=== PATIENT | female | born 1990 | race Hispanic/Latino ===

== ENCOUNTER → 2018-04-01 15:06 | Outpatient (CLI) | payer OTHER, MEDICAID, SELFPAY ==
[2018-04-01 15:46] LABS: Add Manual Diff / Slide Review NO; Basophils Percent Auto 0.6 % (0-2); Eosinophils Percent Auto 3.2 % (2-4); Hematocrit 38.5 % (36-46); Hemoglobin 13.2 g/dL (12.0-16.0); Lymphocytes Percent Auto 33.5 % (25-40); Mean Corpuscular HGB Conc 34.3 % (30-36); Mean Corpuscular Hemoglobin 29.9 PG (26-34); Mean Corpuscular Volume 87.1 fL (80-100); Monocytes Percent Auto 6.8 % (3-14); Neutrophils Absolute Auto 4300 /uL (3000-5900); Neutrophils Percent Auto 55.9 % (50-75); Platelet Count 329 X10^3/uL (150-400); Red Blood Cell Count 4.42 X10^6/uL (4.0-5.2); Red Cell Distribution Width 13.6 % (11.6-14.8); White Blood Cell Count 7.8 X10^3/uL (4.5-11.0)
[2018-04-01 16:33] LABS: Erythrocyte Sedimentation Rate 12 MM/HR (0-20)
[2018-04-01 16:38] LABS: Alanine Aminotransferase 27 IU/L (9-52); Albumin 4.3 g/dL (3.5-5.0); Albumin Globulin Ratio 1.5 (1.0-2.8); Alkaline Phosphatase 32 U/L (38-126); Aspartate Aminotransferase 24 IU/L (14-36); BUN Creatinine Ratio 17.1 (6-22); Bilirubin Total 0.9 mg/dL (0.2-1.3); Blood Urea Nitrogen 12 mg/dL (7-17); Carbon Dioxide 25 mmol/L (22-32); Chloride 107 mmol/L (98-107); Estimated Glomerular Filt Rate > 60.0 mL/min (>60); Globulin 2.8 g/dL (1.7-4.1); Glucose 90 mg/dL (70-100); Potassium 4.7 mmol/L (3.4-5.1); Sodium 142 mmol/L (137-145); Total Protein 7.1 g/dL (6.3-8.2)
[2018-04-01 16:40] LABS: HEMOLYSIS 62 (0-50)
== END ==
PROVIDERS: PCP Internal Medicine; Visit Provider Internal Medicine
DX: G50.0 Trigeminal neuralgia (principal)
CPT/HCPCS: 36415; 80053; 85025; 85651

== ENCOUNTER → 2019-12-25 16:00 | Outpatient (CLI) | payer OTHER, MEDICAID, SELFPAY ==
[2019-12-25 18:13] LABS: Glucose 80 mg/dL (70-100)
[2019-12-25 18:27] LABS: HCG Quantitative /Beta subunit < 2.4 mIU/mL
== END ==
PROVIDERS: PCP Family Medicine; Referring Provider Family Medicine; Visit Provider Family Medicine
DX: Z32.01 Encounter for pregnancy test, result positive (principal); E16.2 Hypoglycemia, unspecified
CPT/HCPCS: 36415; 82947; 84702

== ENCOUNTER → 2020-04-28 13:00 | Outpatient (CLI) | payer OTHER, MEDICAID, SELFPAY ==
[2020-04-28 13:14] LABS: RBC Urine None Seen (0-5/HPF); WBC Urine None Seen (0-5/HPF)
[2020-04-28 14:01] LABS: Hemoglobin A1C% w Est Avg Glu 5.3 % (4.0-6.0)
[2020-04-28 14:01] LABS: Add Manual Diff / Slide Review NO; Basophils Absolute Auto 0 /uL (0-100); Basophils Percent Auto 0.4 % (0-2); Eosinophils Absolute Auto 100 /uL (0-450); Eosinophils Percent Auto 0.9 % (2-4); Hematocrit 40.2 % (36-46); Hemoglobin 13.5 g/dL (12.0-16.0); Lymphocytes Absolute Auto 2500 /uL (1100-4500); Lymphocytes Percent Auto 24.4 % (25-40); Mean Corpuscular HGB Conc 33.6 % (30-36); Mean Corpuscular Hemoglobin 29.9 PG (26-34); Mean Corpuscular Volume 88.9 fL (80-100); Monocytes Absolute Auto 500 /uL (0-900); Monocytes Percent Auto 4.7 % (3-14); Neutrophils Absolute Auto 7000 /uL (1500-7000); Neutrophils Percent Auto 69.6 % (50-75); Platelet Count 335 X10^3/uL (150-400); Red Blood Cell Count 4.52 X10^6/uL (4.0-5.2); Red Cell Distribution Width 13.8 % (11.6-14.8); White Blood Cell Count 10.1 X10^3/uL (4.5-11.0)
[2020-04-28 14:11] LABS: Glucose 83 mg/dL (70-100)
[2020-04-28 14:17] LABS: Appearance Urine UA SL CLOUDY; Bilirubin Urine UA NEGATIVE (NEGATIVE); Color Urine UA YELLOW; Glucose Urine UA NEGATIVE (Negative); Ketones Urine UA NEGATIVE (NEGATIVE); Leukocyte Esterase Urine UA NEGATIVE (NEGATIVE); Nitrite Urine UA NEGATIVE (Negative); Occult Blood Urine UA NEGATIVE (Negative); Protein Urine UA NEGATIVE (Negative); Specific Gravity Urine UA 1.025 (1.000-1.035); Urobilinogen Urine UA 0.2 E.U./dL (0.2)
[2020-04-28 14:31] LABS: pH Urine UA 5.5 (4.5-8.0)
[2020-04-28 14:33] LABS: Bacteria Urine Many (>30); Culture Indicated Urine Cult Not Indicated; Squamous Epithelial Cell Urine 10-30 /HPF (0-5/HPF)
[2020-04-28 14:53] LABS: HCG Quantitative /Beta subunit 83883 mIU/mL
[2020-04-29 04:13] LABS: RPR Screen Non Reactive (Non Reactive)
[2020-04-29 07:13] LABS: C Peptide 6.3 ng/mL (1.1-4.4)
[2020-04-29 08:09] LABS: Varicella IgG Antibody 570 index (Immune >165)
[2020-04-29 16:26] LABS: Hepatitis B Surface Antigen NEGATIVE s/c (NEGATIVE); Rubella Antibody IgG 56.7 IU/mL (>15)
[2020-04-29 16:48] LABS: HIV 1 & 2 Ab/Ag 4th Gen Combo NEGATIVE (NEGATIVE); Hep C Virus Ab w/Reflex Quant NEGATIVE s/c (NEGATIVE)
[2020-05-03 00:52] LABS: Beta-Hydroxybutyrate 0.6 mg/dL (.)
== END ==
PROVIDERS: PCP Family Medicine; Referring Provider Obstetrics & Gynecology; Visit Provider Obstetrics & Gynecology
DX: R30.0 Dysuria (principal); Z34.81 Encounter for supervision of other normal pregnancy, first trimester; N91.2 Amenorrhea, unspecified; E16.2 Hypoglycemia, unspecified
CPT/HCPCS: 36415; 80055; 81001; 82010; 82947; 83036; 84206; 84681; 84702; 86787; 86803; 86850; 86900; 86901; 87086; 87389

== ENCOUNTER → 2020-05-21 16:29 | Outpatient (CLI) | payer OTHER, MEDICAID, SELFPAY | PROVIDERS: PCP Family Medicine; Referring Provider Obstetrics & Gynecology; Visit Provider Obstetrics & Gynecology | DX: Z34.91 Encounter for supervision of normal pregnancy, unspecified, first trimester (principal); Z36.0 Encounter for antenatal screening for chromosomal anomalies | CPT/HCPCS: 36415; 81420 ==

== ENCOUNTER → 2020-06-02 15:08 | Outpatient (CLI) | payer OTHER, MEDICAID, SELFPAY ==
[2020-06-05 18:11] LABS: COVID19 Sendout Not Detected (Not Detect)
== END ==
PROVIDERS: PCP Family Medicine; Visit Provider Family Medicine
DX: J02.9 Acute pharyngitis, unspecified (principal); Z11.59 Encounter for screening for other viral diseases
CPT/HCPCS: 87070; 87635

== ENCOUNTER 2020-06-02 15:51 | Emergency (ER) | payer OTHER, MEDICAID, SELFPAY ==
[2020-06-02 15:56] VITALS: BP 136/84; PULSE 105; RESP 24; TEMP 36.9; O2SAT 100
[2020-06-02] MEDS: SODIUM CHLORIDE 0.9% 1,000 ML 1000 ML IV (16:23)
[2020-06-02] MEDS: ONDANSETRON 4 MG/2 ML INJ IV (16:23)
[2020-06-02 16:30] LABS: Add Manual Diff / Slide Review NO; Basophils Absolute Auto 0 /uL (0-100); Basophils Percent Auto 0.4 % (0-2); Eosinophils Absolute Auto 300 /uL (0-450); Eosinophils Percent Auto 2.6 % (2-4); Hematocrit 40.2 % (36-46); Hemoglobin 12.9 g/dL (12.0-16.0); Lymphocytes Absolute Auto 1600 /uL (1100-4500); Lymphocytes Percent Auto 14.3 % (25-40); Mean Corpuscular HGB Conc 32.1 % (30-36); Mean Corpuscular Hemoglobin 28.8 PG (26-34); Mean Corpuscular Volume 89.7 fL (80-100); Monocytes Absolute Auto 500 /uL (0-900); Monocytes Percent Auto 4.8 % (3-14); Neutrophils Absolute Auto 8600 /uL (1500-7000); Neutrophils Percent Auto 77.9 % (50-75); Platelet Count 304 X10^3/uL (150-400); Red Blood Cell Count 4.48 X10^6/uL (4.0-5.2); Red Cell Distribution Width 13.8 % (11.6-14.8)
[2020-06-02 16:31] LABS: Alanine Aminotransferase 23 IU/L (<35); Albumin 4.6 g/dL (3.5-5.0); Albumin Globulin Ratio 1.2 (1.0-2.8); Alkaline Phosphatase 26 U/L (38-126); Aspartate Aminotransferase 33 IU/L (14-36); BUN Creatinine Ratio 11.7 (6-22); Bilirubin Total 0.7 mg/dL (0.2-1.3); Blood Urea Nitrogen 7 mg/dL (7-17); Calcium 8.9 mg/dL (8.4-10.2); Carbon Dioxide 24 mmol/L (22-32); Chloride 102 mmol/L (98-107); Estimated Glomerular Filt Rate > 60.0 mL/min (>60); Globulin 3.8 g/dL (1.7-4.1); Glucose 83 mg/dL (70-100); Potassium 4.4 mmol/L (3.4-5.1); Sodium 135 mmol/L (137-145); Total Protein 8.4 g/dL (6.3-8.2)
[2020-06-02 16:34] LABS: HEMOLYSIS 91 (0-50)
[2020-06-02] MEDS: ALBUTEROL HFA 200 PUFF/18 GM INH (COVID POS/VENT PTS) INH (16:35)
--- NOTE | 2020-06-02 16:38 | ED_ITS ---
HPI - Nausea/Vomiting/Diarrhea <Zonia ChewMARY - Last Filed: 06/02/20 20:13> General Chief complaint: Nausea/Vomiting/Diarrhea Stated complaint: sent for fluids and O2 Time Seen by Provider: 06/02/20 16:00 Source: patient Mode of arrival: Ambulatory History of Present Illness HPI Narrative: 29yo female , who is currently 13 weeks , sent to the emergency department today from the clinic for IV fluids and Zofran due to vomiting tachycardia. She originally presented to her PCP for evaluation of sinus congestion and shortness of breath. Patient states over week ago she developed increasing allergy symptoms with rhinitis and sinus pressure, symptoms have worsened over the past few days. She reports increasing sinus pressure, headaches, dry cough, and shortness of breath. She states she has a history of asthma and intermittently uses an albuterol inhaler, she has not use the inhaler since she has been ill. She states she has had some vomiting and nausea with this however over the past 1-2 days she has not been able to keep any foods or fluids down despite p.o. Zofran. Patient states she has spent time with a cousin who tested positive for COVID-19 on 05/26. Patient denies any abdominal pain, cramping, vaginal bleeding, dizziness, chest pain, sore throat, vision changes, or any other concerns. She states heart tones were found to be normal in clinic today, denies any history of issues with her current or with pregnancies in the past. Related Data Home Medications Medication Instructions Recorded Confirmed acetaminophen 500 mg tablet 1,000 mg PO Q6H PRN 04/28/20 05/06/20 prenat.vits,brigette,[id number]-[id number] 1 tab PO DAILY 04/28/20 05/06/20 Previous Rx's Medication Instructions Recorded blood-glucose meter #1 each 01/07/20 blood sugar diagnostic #100 each 01/09/20 lancets 30 gauge #100 each 01/09/20 omeprazole 20 mg capsule,delayed 20 mg PO DAILY #30 cap 05/06/20 release ondansetron HCl 4 mg tablet 4 mg PO Q6H PRN #20 tab 05/06/20 amoxicillin 875 mg-potassium 1 tab PO BID #10 tab 06/02/20 clavulanate 125 mg tablet metoclopramide HCl [Reglan] 10 mg PO Q6H PRN #10 tab 06/02/20 Allergies Allergy/AdvReac Type Severity Reaction Status Date / Time No Known Drug Allergies Allergy Unknown Verified 05/06/20 15:41 Review of Systems <MARY Warren - Last Filed: 06/02/20 20:13> Review of Systems Narrative: REVIEW OF SYSTEMS: GENERAL: Reports fevers, see HPI. HENT: No head trauma. Reports rhinorrhea and sinus congestion. EYES: No loss of vision, double vision, eye pain, or irritation. CARDIOVASCULAR: No chest pain. RESPIRATORY: Reports shortness of breath, see HPI. GASTROINTESTINAL: Complains of nausea and vomiting, HPI. GENITOURINARY: No flank pain. Reports early , see HPI. MUSCULOSKELETAL: No pain, weakness, or trauma. INTEGUMENTARY: No rash, lesions, or pruritus. NEURO: No numbness or tingling. PSYCH: No behavior or mood changes. Patient History <MARY Warren - Last Filed: 06/02/20 20:13> Medical History Anemia (Acute ~2016) Anxiety (Resolved 03/21/16) Anxiety (Chronic) Biliary colic (Acute) Cholelithiasis (Acute) Chronic headaches (Acute) Dysthymia (Resolved 03/21/16) Exposure to hepatitis B (Acute ~2015) Occipital neuralgia (Chronic) Osteomyelitis (Acute ~1999) Rh negative state in antepartum period (Acute) Surgical History H/O section complicating (Acute) H/O wisdom tooth extraction (Acute ~2012) History of primary section (Acute ~11/15/12) Status post delivery (Resolved 12/21/16) Status post cholecystectomy (Resolved 2016) Status post incision and drainage (Acute ~1999) Family History Mother Diabetes mellitus Father Myocardial infarction Sister Hypoglycemic disorder Grandmother Twins, both liveborn Grandfather Unknown whether patient has any health problems Grandmother Unknown whether patient has any health problems Grandfather Unknown whether patient has any health problems Sister Depression Anxiety Social History marital status: number of children: 2 household members: spouse and family lives independently: Yes caregiver/support person: No housing: house pets and animals: Yes (X dog) education level: college (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 re-do to work 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[place]) occupational status: unemployed (Homemaker ) current occupational exposures/hazards: No yamel/nondenominational: Pentecostalism special yamel needs: No Smoking Status: Never smoker second hand exposure: No alcohol intake: former (pre- : once in a while) substance use type: does not use Smoking Status: Never smoker Exam <MARY Warren - Last Filed: 06/02/20 20:13> Initial Vital Signs Initial Vital Signs: Vital Signs Temperature 98.4 F 06/02/20 15:56 Pulse Rate 105 H 06/02/20 15:56 Respiratory Rate 24 06/02/20 15:56 Blood Pressure 136/84 06/02/20 15:56 Pulse Oximetry 100 06/02/20 15:56 PHYSICAL EXAMINATION: GENERAL: Well groomed, alert, and cooperative. Answers questions promptly and appropriately. Vital signs noted. HENT: Normocephalic, atraumatic. Ear canals patent. Oropharynx without erythema. EYES: Conjunctiva pink, sclera white, no periorbital swelling. No discharge. CHEST: Normal to inspection and without deformities. CARDIOVASCULAR: S1 and S2 sounds normal. Regular rate and rhythm, no murmurs, clicks, or bruits. RESPIRATORY: Normal respiratory rate, trachea midline, airway patent. No stridor, nasal flaring or accessory muscle use. Able to speak in full sentences. Lungs are clear in all [place] without wheeze, rhonchi, or crackles. Occasional dry cough observed, see HPI. Abdomen: Abdomen soft and nontender. MUSCULOSKELETAL: Normal gait and coordination. Equal tone and mass bilaterally. EXTREMITIES: Moves all extremities. SKIN: Warm, dry, soft, appropriate color for ethnicity. No lesions, rashes, or wounds to visualized areas. NEURO: Alert and Oriented X 3. Good coordination. No ataxia or cognitive issues. PSYCH: Appropriate affect and mood. <Quentin Portillo DO - Last Filed: 06/11/20 03:26> Initial Vital Signs Initial Vital Signs: Vital Signs Temperature 98.4 F 06/02/20 15:56 Pulse Rate 105 H 06/02/20 15:56 Respiratory Rate 24 06/02/20 15:56 Blood Pressure 136/84 06/02/20 15:56 Pulse Oximetry 100 06/02/20 15:56 Course <Zonia ChewMARY - Last Filed: 06/02/20 20:13> Course Course Narrative: Patient was given Zofran and fluids, reports continued nausea. She was given an albuterol inhaler and reglan IV, most medication administration patient reports she is feeling much better. All symptoms including shortness of breath have resolved. She was able to eat and drink without any worsening symptoms. Orders Ordered: Discontinued Medications Albuterol (Ventolin Hfa (Vent/Covid R/O)) 2 puff INH NOW ONE Stop: 06/02/20 16:12 Last Admin: 06/02/20 16:35 Dose: 2 puff Documented by: HETAL Sodium Chloride (Normal Saline 0.9%) 1,000 mls @ 1,000 mls/hr IV BOLUS ONE Stop: 06/02/20 17:10 Last Infusion: 06/02/20 17:43 Dose: 0 mls/hr Documented by: Admin: 06/02/20 16:23 Dose: 1,000 mls/hr Documented by: JUANY Metoclopramide HCl (Reglan) 10 mg IV NOW ONE Stop: 06/02/20 17:33 Last Admin: 06/02/20 17:45 Dose: 10 mg Documented by: JUANY Ondansetron HCl (Zofran) 4 mg IV NOW ONE Stop: 06/02/20 16:14 Last Admin: 06/02/20 16:23 Dose: 4 mg Documented by: JUANY Vital Signs Vital signs: Vital Signs - 8 hr 06/02/20 15:56 06/02/20 16:42 06/02/20 17:05 Temperature 98.4 F Pulse Rate 105 H 94 H Respiratory Rate 24 18 18 Blood Pressure 136/84 108/59 L Pulse Oximetry 100 99 100 06/02/20 18:23 Temperature Pulse Rate 96 H Respiratory Rate 18 Blood Pressure 111/64 Pulse Oximetry 99 <Quentin Portillo DO - Last Filed: 06/11/20 03:26> Orders Ordered: Discontinued Medications Albuterol (Ventolin Hfa (Vent/Covid R/O)) 2 puff INH NOW ONE Stop: 06/02/20 16:12 Last Admin: 06/02/20 16:35 Dose: 2 puff Documented by: HETAL Sodium Chloride (Normal Saline 0.9%) 1,000 mls @ 1,000 mls/hr IV BOLUS ONE Stop: 06/02/20 17:10 Last Infusion: 06/02/20 17:43 Dose: 0 mls/hr Documented by: Admin: 06/02/20 16:23 Dose: 1,000 mls/hr Documented by: JUANY Metoclopramide HCl (Reglan) 10 mg IV NOW ONE Stop: 06/02/20 17:33 Last Admin: 06/02/20 17:45 Dose: 10 mg Documented by: JUANY Ondansetron HCl (Zofran) 4 mg IV NOW ONE Stop: 06/02/20 16:14 Last Admin: 06/02/20 16:23 Dose: 4 mg Documented by: JUANY Vital Signs Vital signs: Vital Signs - 8 hr 06/02/20 15:56 06/02/20 16:42 06/02/20 17:05 Temperature 98.4 F Pulse Rate 105 H 94 H Respiratory Rate 24 18 18 Blood Pressure 136/84 108/59 L Pulse Oximetry 100 99 100 06/02/20 18:23 Temperature Pulse Rate 96 H Respiratory Rate 18 Blood Pressure 111/64 Pulse Oximetry 99 MDM - Nausea/Vomiting/Diarrhea <MARY Warren - Last Filed: 06/02/20 20:13> Medical Records Attestation: I reviewed the patient's medical records. Lab Data Attestation: I reviewed the patient's lab results. Result diagrams: 06/02/20 16:08 06/02/20 16:08 Labs: Lab Results 06/02/20 06/02/20 Range/Units 16:08 16:08 WBC 11.0 (4.5-11.0) X10^3/uL RBC 4.48 (4.0-5.2) X10^6/uL Hgb 12.9 (12.0-16.0) g/dL Hct 40.2 (36-46) % MCV 89.7 (80-100) fL MCH 28.8 (26-34) PG MCHC 32.1 (30-36) % RDW 13.8 (11.6-14.8) % Plt Count 304 (150-400) X10^3/uL Neut % (Auto) 77.9 H (50-75) % Lymph % (Auto) 14.3 L (25-40) % [place] % (Auto) 4.8 (3-14) % Eos % (Auto) 2.6 (2-4) % Baso % (Auto) 0.4 (0-2) % Neut # (Auto) 8600 H (0354-7326) /uL Lymph # (Auto) 1600 (0526-3389) /uL [place] # (Auto) 500 (0-900) /uL Eos # (Auto) 300 (0-450) /uL Baso # (Auto) 0 (0-100) /uL Sodium 135 L (137-145) mmol/L Potassium 4.4 (3.4-5.1) mmol/L Chloride 102 (98-107) mmol/L Carbon Dioxide 24 (22-32) mmol/L BUN 7 (7-17) mg/dL Creatinine 0.60 (0.52-1.04) mg/dL Estimated GFR > 60.0 (>60) mL/min BUN/Creatinine Ratio 11.7 (6-22) Glucose 83 (70-100) mg/dL Calcium 8.9 (8.4-10.2) mg/dL Total Bilirubin 0.7 (0.2-1.3) mg/dL AST 33 (14-36) IU/L ALT 23 (<35) IU/L Alkaline Phosphatase 26 L (38-126) U/L Total Protein 8.4 H (6.3-8.2) g/dL Albumin 4.6 (3.5-5.0) g/dL Globulin 3.8 (1.7-4.1) g/dL Albumin/Globulin Ratio 1.2 (1.0-2.8) Urine Dip Bedside Urine Glucose Negative Bedside Urine Bilirubin - Negative Bedside Urine Ketone - Negative Urine Specific [place] 1.025 Bedside Urine Occult Blood - Negative Bedside Urine pH 6.0 Bedside Urine Protein - Negative Bedside Urine Urobilinogen - Negative Bedside Urine Nitrite - Negative Bedside Urine Leukocytes - Negative Esterase MDM Narrative Medical decision making narrative: 29-year-old female who is currently 13 weeks , presents emergency department for continuous nausea vomiting with the past few days with shortness of breath. She was recently seen in the clinic today, ultrasound shows heart beat within normal limits in clinic. I suspect patient's cough and shortness of breath is most likely related to her sinus infection that she was recently diagnosed with. COVID-19 remains on the differential as well. Additionally, her history of asthma may be contributing to her feelings of shortness of breath. Symptoms were resolved after albuterol inhaler and Reglan. I suspect nausea and vomiting is most likely related to and current respiratory illness. Patient was able to consume food in fluids post fluids and rhythm administration. Less concern for PE due to resolution of symptoms, lack of high risk factors (other than current ), patient is not tachycardic and non tachypneic, oxygen saturation within normal limits. Less concern for acute infection such as pneumonia given clear lung examination, patient is afebrile at this time. Patient's initial slight tachycardia resolved after fluid administration She was encouraged to continue antibiotics as prescribed, she was encouraged to quarantine until COVID results are returns. Return precautions given for new or worsening symptoms. Patient agreed to plan of care verbalized understanding. <Quentin Portillo, DO - Last Filed: 06/11/20 03:26> Lab Data Labs: Lab Results 06/02/20 06/02/20 Range/Units 16:08 16:08 WBC 11.0 (4.5-11.0) X10^3/uL RBC 4.48 (4.0-5.2) X10^6/uL Hgb 12.9 (12.0-16.0) g/dL Hct 40.2 (36-46) % MCV 89.7 (80-100) fL MCH 28.8 (26-34) PG MCHC 32.1 (30-36) % RDW 13.8 (11.6-14.8) % Plt Count 304 (150-400) X10^3/uL Neut % (Auto) 77.9 H (50-75) % Lymph % (Auto) 14.3 L (25-40) % [place] % (Auto) 4.8 (3-14) % Eos % (Auto) 2.6 (2-4) % Baso % (Auto) 0.4 (0-2) % Neut # (Auto) 8600 H (5736-4366) /uL Lymph # (Auto) 1600 (9949-1597) /uL [place] # (Auto) 500 (0-900) /uL Eos # (Auto) 300 (0-450) /uL Baso # (Auto) 0 (0-100) /uL Sodium 135 L (137-145) mmol/L Potassium 4.4 (3.4-5.1) mmol/L Chloride 102 (98-107) mmol/L Carbon Dioxide 24 (22-32) mmol/L BUN 7 (7-17) mg/dL Creatinine 0.60 (0.52-1.04) mg/dL Estimated GFR > 60.0 (>60) mL/min BUN/Creatinine Ratio 11.7 (6-22) Glucose 83 (70-100) mg/dL Calcium 8.9 (8.4-10.2) mg/dL Total Bilirubin 0.7 (0.2-1.3) mg/dL AST 33 (14-36) IU/L ALT 23 (<35) IU/L Alkaline Phosphatase 26 L (38-126) U/L Total Protein 8.4 H (6.3-8.2) g/dL Albumin 4.6 (3.5-5.0) g/dL Globulin 3.8 (1.7-4.1) g/dL Albumin/Globulin Ratio 1.2 (1.0-2.8) Urine Dip Bedside Urine Glucose Negative Bedside Urine Bilirubin - Negative Bedside Urine Ketone - Negative Urine Specific [place] 1.025 Bedside Urine Occult Blood - Negative Bedside Urine pH 6.0 Bedside Urine Protein - Negative Bedside Urine Urobilinogen - Negative Bedside Urine Nitrite - Negative Bedside Urine Leukocytes - Negative Esterase Discharge Plan Departure Patient Disposition: Home Clinical Impression: Nausea & vomiting Qualifiers: Vomiting type: unspecified Vomiting Intractability: non-intractable Qualified Code(s): R11.2 - Nausea with vomiting, unspecified Discharge Date/Time: 06/02/20 18:44 Instructions: DI for Nausea -- Adult, DI for Vomiting -- Adult Activity Restrictions/Additional Instructions: Your laboratory work is unremarkable. Please take your antibiotics that were prescribed by Dr. Sandoval. I have given you a prescription for anti-nausea medication, use this if needed. It was sent to [facility] in [place]. Drink plenty of fluids and follow-up with PCP. Return to the ED for new or worsening symptoms. Prescriptions: New metoclopramide HCl [Reglan] 10 mg tablet 10 mg PO Q6H PRN (Reason: nausea and vomiting) Qty: 10 RF: 0 No Action (DME) blood-glucose meter [Blood Glucose Monitoring] Kit See Rx Instructions .ROUTE .MEDSUPPLY Qty: 1 RF: 0 amoxicillin-pot clavulanate [Augmentin] 875-125 mg tablet 1 tab PO BID Qty: 10 RF: 0 (DME) blood sugar diagnostic [Blood Glucose Test] Strip See Rx Instructions .ROUTE .MEDSUPPLY Qty: 100 RF: 0 (DME) lancets [Twist Lancets] 30 gauge misc See Rx Instructions .ROUTE .MEDSUPPLY Qty: 100 RF: 0 ondansetron HCl [Zofran] 4 mg tablet 4 mg PO Q6H PRN (Reason: nausea and vomiting) Qty: 20 RF: 2 omeprazole 20 mg capsule,delayed release(DR/EC) 20 mg PO DAILY Qty: 30 RF: 3 prenat.vits,brigette,oax-mczt-[id number] Tablet 1 tab PO DAILY RF: 0 acetaminophen [Tylenol Extra Strength] 500 mg tablet 1,000 mg PO Q6H PRNRF: 0 Referrals: Noy Sandoval MD [Primary Care Provider] - <Quentin Portillo DO - Last Filed: 06/11/20 03:26> Cosign ED Attending Cosignature Attestation: I was immediately available in the department for consultation. This documentation has been reviewed and I agree with assessment and plan. Supervised by Quentin Portillo DO
[2020-06-02 16:42] VITALS: RESP 18; O2SAT 99
[2020-06-02 17:05] VITALS: BP 108/59; PULSE 94; RESP 18; O2SAT 100
[2020-06-02] MEDS: METOCLOPRAMIDE 10 MG/2 ML INJ IV (17:45)
[2020-06-02 18:23] VITALS: BP 111/64; PULSE 96; RESP 18; O2SAT 99
== END 2020-06-02 18:44 | disposition home or self-care (01) ==
PROVIDERS: Emergency Provider Nurse Practitioner; PCP Family Medicine; Referring Provider Family Medicine
DX: Z03.818 Encounter for observation for suspected exposure to other biological agents ruled out (principal); R06.02 Shortness of breath; R11.2 Nausea with vomiting, unspecified; R51.9 Headache, unspecified; J02.9 Acute pharyngitis, unspecified; Z11.59 Encounter for screening for other viral diseases; Z3A.13 13 weeks gestation of pregnancy
CPT/HCPCS: 36415; 80053; 81003; 85025; 87070; 87635; 94640; 96361; 96374; 96375; 99284; A9270; J2405; J2765

== ENCOUNTER → 2020-06-04 14:00 | Outpatient (CLI) | payer OTHER, MEDICAID, SELFPAY ==
[2020-06-04 14:57] LABS: COVID19 -Nasal RAPID Negative (Negative)
== END ==
PROVIDERS: PCP Family Medicine; Visit Provider Physician Assistant
DX: Z11.59 Encounter for screening for other viral diseases (principal)
CPT/HCPCS: 87635

== ENCOUNTER → 2020-06-15 14:35 | Outpatient (CLI) | payer OTHER, MEDICAID, SELFPAY ==
[2020-06-15 21:09] LABS: Urine N gonorrhoeae NOT DETECTED
[2020-06-15 21:29] LABS: Urine Chlamydia NOT DETECTED
== END ==
PROVIDERS: PCP Family Medicine; Visit Provider Obstetrics & Gynecology
DX: Z34.82 Encounter for supervision of other normal pregnancy, second trimester (principal); Z3A.14 14 weeks gestation of pregnancy
CPT/HCPCS: 87491; 87591

== ENCOUNTER → 2020-07-13 15:00 | Outpatient (CLI) | payer OTHER, MEDICAID, SELFPAY ==
[2020-07-15 21:24] LABS: AFP Value 51.6 ng/mL (.); Gest Age on Col Date 18.9 weeks (.); Insulin Dep Diabetes No (.); OSBR Risk 1IN 3600 (.); Results Report (.); Test Results *Screen Negative* (.)
== END ==
PROVIDERS: PCP Family Medicine; Referring Provider Family Medicine; Visit Provider Obstetrics & Gynecology
DX: Z34.82 Encounter for supervision of other normal pregnancy, second trimester (principal); Z3A.18 18 weeks gestation of pregnancy
CPT/HCPCS: 36415; 82105

== ENCOUNTER → 2020-07-28 13:34 | Outpatient (CLI) | payer OTHER, MEDICAID, SELFPAY ==
--- NOTE | 2020-07-28 13:35 | DI.US.S_ITS ---
PROCEDURE: US OB >= 14 WEEKS FETUS INDICATIONS: Anatomy Scan OUTSIDE/PRIOR DATING DATA: Last menstrual period (LMP): 03/03/20. LMP-based estimated date of delivery (DEEP): 12/08/20 . First dating scan (date and location): 05/06/20 . Estimated date of delivery (DEEP) from first dating scan: 12/08/20 . TECHNIQUE: Real-time scanning was performed of the fetus, with image documentation and biometric measurements. Endovaginal scanning: Not needed COMPARISON: [facility], , OB >= 14 WEEKS FETUS, 06/15/2020, 14:12. FINDINGS: General: A single living intrauterine gestation is present. Presentation: Vertex. Placenta: Placental position is posterior , without previa. Amniotic fluid index: 11.3 cm, normal range is 5-24 cm. heart rate: 153 beats per minute. Maternal cervical canal: 6.0 cm long. Normal lower limit is 2.5 cm. biometrics: Biparietal diameter: 4.8 cm, 20 weeks 3 days Head circumference: 19.5 cm, 21 weeks 5 days Abdominal circumference: 16.3 cm, 21 weeks 2 days Femur length: 3.5 cm, 21 weeks 1 day Estimated gestational age from initial scan: 21 weeks 0 days. Composite gestational age from present scan: 21 weeks 1 day Estimated weight and percentile: 408 g, 57th percentile Measurement variability for biometric dating: +/- 7 days from 14 weeks to 15 weeks 6 days gestation, +/- 10 days from 16 weeks to 21 weeks 6 days gestation, +/- 2 weeks from 22 weeks to 27 weeks 6 days gestation, +/- 3 weeks for 28 weeks gestation or later. weight reference: 4500 g or EFW >90/95% is considered macrosomia or large for gestational age. EFW <10% is small for gestational age. EFW 5% or less is considered intra-uterine growth restriction. Anatomic survey: Neuro: Ventricles are non-dilated at less than 10 mm. Cisterna magna is normal at 3-11 mm. Cerebellum is normal in size and morphology. Nuchal skin fold: Normal at less than 6 mm between 14-21 weeks gestational age. Face: Nose and lips, facial profile are normal. Spine: No evidence for spina bifida. Heart: 4-chambered heart is present, with normal ventricular outflow tracts. Diaphragm: Diaphragm is intact. Stomach: Left-sided stomach is present. Kidneys: No hydronephrosis. Normal is less than 5 mm in 2nd trimester, less than 7 mm in 3rd trimester. Cord: 3-vessel cord has orthotopic insertion. Bladder: Normal in size. Extremities: All 4 extremities identified. IMPRESSION: Appropriate interval growth, no anomaly seen. The delivery date is centered on 12/08/20, +/-5 days. Dictated by: Alcon Gonzalez M.D. on 07/29/2020 at 11:08 Approved by: Alcon Gonzalez M.D. on 07/29/2020 at 11:11
== END ==
PROVIDERS: PCP Family Medicine; Referring Provider Obstetrics & Gynecology; Visit Provider Obstetrics & Gynecology
DX: Z34.92 Encounter for supervision of normal pregnancy, unspecified, second trimester (principal); Z3A.20 20 weeks gestation of pregnancy
CPT/HCPCS: 76811

== ENCOUNTER → 2020-09-13 08:54 | Outpatient (CLI) | payer OTHER, MEDICAID, SELFPAY ==
[2020-09-13 11:44] LABS: Hematocrit 35.8 % (36-46)
[2020-09-13 11:51] LABS: GTT (PREG) 1 Hour PP 50gm Dose 101 mg/dL (76-139)
== END ==
PROVIDERS: PCP Family Medicine; Referring Provider Obstetrics & Gynecology; Visit Provider Obstetrics & Gynecology
DX: O26.899 Other specified pregnancy related conditions, unspecified trimester (principal); Z67.91 Unspecified blood type, Rh negative; Z3A.26 26 weeks gestation of pregnancy
CPT/HCPCS: 36415; 82950; 85014; 85018; 86850

== ENCOUNTER 2020-09-22 13:50 | Outpatient (CLI) | payer OTHER, MEDICAID, SELFPAY | END 2020-09-22 14:22 | disposition home or self-care (01) | LOC: OB 09-23 13:14 | PROVIDERS: PCP Family Medicine; Referring Provider Obstetrics & Gynecology; Visit Provider Obstetrics & Gynecology | DX: O47.03 False labor before 37 completed weeks of gestation, third trimester (principal); R10.2 Pelvic and perineal pain; Z3A.29 29 weeks gestation of pregnancy | CPT/HCPCS: 59025; G0378; G0379 ==

== ENCOUNTER 2020-11-15 14:46 | Outpatient (CLI) | payer OTHER, MEDICAID, SELFPAY | END 2020-11-15 15:25 | disposition home or self-care (01) | LOC: LABOR 15:01 → OB 11-16 07:28 | PROVIDERS: PCP Family Medicine; Referring Provider Obstetrics & Gynecology; Visit Provider Obstetrics & Gynecology | DX: O36.8130 Decreased fetal movements, third trimester, not applicable or unspecified (principal); Z3A.36 36 weeks gestation of pregnancy; O47.03 False labor before 37 completed weeks of gestation, third trimester | CPT/HCPCS: 59025; 84112; G0378; G0379 ==

== ENCOUNTER → 2020-11-17 14:22 | Outpatient (CLI) | payer OTHER, MEDICAID, SELFPAY ==
[2020-11-17 15:41] LABS: Alanine Aminotransferase 13 IU/L (<35); Albumin 3.6 g/dL (3.5-5.0); Albumin Globulin Ratio 1.1 (1.0-2.8); Alkaline Phosphatase 89 U/L (38-126); Aspartate Aminotransferase 19 IU/L (14-36); Bilirubin Total 0.6 mg/dL (0.2-1.3); Bilirubin Unconjugated 0.6 mg/dL (0.0-1.1); Globulin 3.2 g/dL (1.7-4.1); HEMOLYSIS < 15 (0-50); Total Protein 6.8 g/dL (6.3-8.2)
[2020-11-18 10:10] LABS: Bile Acids 5.8 umol/L (0.0-10.0)
[2020-11-18 20:30] LABS: Strep Grp B PCR NEG for Grp B Strep
== END ==
PROVIDERS: PCP Family Medicine; Referring Provider Obstetrics & Gynecology; Visit Provider Obstetrics & Gynecology
DX: O99.613 Diseases of the digestive system complicating pregnancy, third trimester (principal); K80.50 Calculus of bile duct without cholangitis or cholecystitis without obstruction; L29.9 Pruritus, unspecified; Z3A.37 37 weeks gestation of pregnancy
CPT/HCPCS: 36415; 80076; 82239; 87653

== ENCOUNTER 2020-11-27 15:46 | Inpatient (IN) | payer OTHER, MEDICAID, SELFPAY ==
--- NOTE | 2020-11-27 | PATH_ITS ---
[facility] Accession Number: [id number] . 01 Material submitted: . fallopian tube - BILATERAL FALLOPIAN TUBES . 02 Diagnosis: Bilateral Fallopian Tubes: Complete cross-sections of segments of fallopian tube x2. Negative for atypia or malignancy. MRV 12/06/2020 0948 Local . 02 Electronically signed: . Rhoda Rodríguez MD, Pathologist NPI- [id number] . 01 Gross description: . The specimen is received in formalin labeled bilateral fallopian tubes and consists of two fallopian tubes measuring 6.0 cm in length x 0.8 cm in diameter and 10.0 cm in length x 1.4 cm in diameter. The serosa is pink-purple and smooth. Sectioning reveals a tolentino-pink focally hemorrhagic mucosa and a lumen measuring up to 0.5 cm in diameter. The longer fallopian tube is surrounded by clotted blood and clear gelatinous material. District [employer] Management Officer sections are submitted. . A1-A2 - [place] fallopian tube, margin (blue), central cross sections and bisected fimbria. A3-A4 - Longer fallopian tube, margin (blue), central cross sections and bisected fimbria. ([id number]) /[facility] 11/30/2020 1707 Local . 02 Pathologist provided ICD-10: Z30.2 . 02 CPT . 799272 Performed at: 01 [facility] [address], [place], [place] [id number] MD Golden Velazquez MD Phone: [phone] Performed at: 02 [facility] [address] , [place], [place] [id number] MD Shari Biggs MD Phone: [phone]
--- NOTE | 2020-11-27 16:53 | PM.OBHP.1 ---
OB HPI Date/Time Date of admission: 11/27/20 Date Patient Seen: 11/27/20 Time Patient Seen: 16:54 History of Present Condition Chief complaint: EVAL OF LABOR : 3 Para: 2 Estimated Date of Delivery: 12/08/20 Estimated Gestational Age (weeks): 38 Narrative: Sharon Baca is a 30 year old female in active labor with 2 prior sections for repeat section. Patient was also scheduled for sterilization by removal of her fallopian tubes and revision of her scar. Indications Operative indications ( section): previous uterine surgery (In labor) History of Present care: good care, initiated at week # (9), number of visits (9) and pounds weight gain (0) Dating criteria: LMP confirmed by 1st trimester US Ultrasounds: normal mid trimester US Obstetrical complications: none Medical complications: none Preadmission Labs Blood type: A (-) negative -: Antibody screen: negative, GBS status: negative, HBsAG: negative, HIV: negative and RPR/VDLR: negative -: Chlamydia screen: not detected and Gonorrhea screen: not detected -: Rubella: immune and Varicella: immune HCAB: negative Cell-free DNA: Normal male 1 hr GTT: 101 Prior (ies) History: 11/15/12 primary section for failure to progress 8 lb female 12/21/2016 repeat section 7 lb 14 oz female Evaluation Evaluation Baseline heart rate: 140 Variability: Moderate (11-25) monitor accelerations: Present Monitor Decelerations: Absent Contraction Frequency (minutes): 3 Uterine Contraction Intensity: Strong/Firm Category of Tracing: Reactive Status: Category l Cervical dilation (cm): 0 Cervical effacement (%): 0 station: -4 PFSH Medical History (Updated 07/18/20 @ 17:20 by Madelaine Donahue MD) Anemia (~2016) Anxiety (03/21/16) Anxiety Biliary colic Cholelithiasis Chronic headaches Dysthymia (03/21/16) Exposure to hepatitis B (~2015) Occipital neuralgia Osteomyelitis (~1999) Rh negative state in antepartum period Surgical History H/O section complicating H/O wisdom tooth extraction (~2012) History of primary section (~11/15/12) Status post delivery (12/21/16) Status post cholecystectomy (2016) Status post incision and drainage (~1999) Family History Mother Diabetes mellitus Father Myocardial infarction Sister Hypoglycemic disorder Grandmother Twins, both liveborn Grandfather Unknown whether patient has any health problems Grandmother Unknown whether patient has any health problems Grandfather Unknown whether patient has any health problems Sister Depression Anxiety Social History marital status: number of children: 2 household members: spouse and family lives independently: Yes caregiver/support person: No housing: house pets and animals: Yes (X dog) 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 ) current occupational exposures/hazards: No yamel/hinduism: Lutheran special yamel needs: No Smoking Status: Never smoker second hand exposure: No alcohol intake: former (pre- : once in a while) substance use type: does not use Meds Home Medications and Allergies Home Medications Medication Instructions Recorded Confirmed Type blood-glucose meter #1 each 01/07/20 11/25/20 Rx acetaminophen 500 mg tablet 1,000 mg PO Q6H PRN 04/28/20 11/25/20 History prenat.vits,brigette,uui-inpu-srher 1 tab PO DAILY 04/28/20 11/25/20 History ondansetron HCl 4 mg tablet 4 mg PO Q6H PRN #20 tab 05/06/20 11/25/20 Rx amoxicillin 875 mg-potassium 1 tab PO BID #10 tab 06/02/20 11/25/20 Rx clavulanate 125 mg tablet metoclopramide HCl [Reglan] 10 mg PO Q6H PRN #10 tab 06/02/20 11/25/20 Rx RELION/TRUE ULTRA LANC 30G MIS #100 ea 08/04/20 11/25/20 Rx blood sugar diagnostic See Rx Instructions .ROUTE 09/14/20 11/25/20 Rx .COMPLEX #100 ea oxycodone 5 mg tablet 5 mg PO Q6H PRN #10 tab 09/14/20 11/25/20 Rx pantoprazole 20 mg tablet,delayed 20 mg PO DAILY #30 tab 11/24/20 11/25/20 Rx release Allergies Allergy/AdvReac Type Severity Reaction Status Date / Time No Known Drug Allergies Allergy Unknown Verified 11/25/20 13:09 Review of Systems Review of Systems Narrative: Patient denies headaches, scotomata, epigastric pain. Good movement. No rupture membranes. Patient began bel earlier today and they have gotten quite frequent and more painful. ROS: Yes All systems reviewed with the patient and are negative except as otherwise documented Exam Vital Signs (past 8 hours): Blood pressure 135/86, pulse 94, temperature 98.1? Narrative Exam Narrative: HEENT exam within normal limits. Lungs are clear to auscultation percussion. Heart is regular rate and rhythm no S3-S4 or murmurs. Abdomen is gravid. Fetus is vertex. Extremities without edema and nontender. Objective Labs Result Diagrams: 11/27/20 17:00 Assessment and Plan Assessment and Plan Assessment and Plan narrative: 38 and 1/2 week gestation with 2 prior sections was scheduled for repeat section who arrived in active labor. Patient also is requesting bilateral tubal ligation by removal of the fallopian tubes. She has signed consent form over 30 days ago. Patient is also requesting revision of her scar because she has tissue that folds over the scar. She did have an infection in her scar after her 1st . Time Spent with Patient Total time spent with greater than 50% in coordination of care (as documented) at patient's floor/unit and/or counseling patient:: less than 15 minutes
[2020-11-27 17:22] LABS: Add Manual Diff / Slide Review NO; Basophils Absolute Auto 100 /uL (0-100); Basophils Percent Auto 0.6 % (0-2); Eosinophils Absolute Auto 100 /uL (0-450); Eosinophils Percent Auto 1.1 % (2-4); Hematocrit 33.7 % (36-46); Hemoglobin 11.3 g/dL (12.0-16.0); Lymphocytes Absolute Auto 2200 /uL (1100-4500); Lymphocytes Percent Auto 25.3 % (25-40); Mean Corpuscular HGB Conc 33.6 % (30-36); Mean Corpuscular Hemoglobin 28.1 PG (26-34); Mean Corpuscular Volume 83.6 fL (80-100); Monocytes Absolute Auto 500 /uL (0-900); Monocytes Percent Auto 5.4 % (3-14); Neutrophils Absolute Auto 6000 /uL (1500-7000); Neutrophils Percent Auto 67.6 % (50-75); Platelet Count 265 X10^3/uL (150-400); Red Blood Cell Count 4.03 X10^6/uL (4.0-5.2); Red Cell Distribution Width 13.5 % (11.6-14.8); White Blood Cell Count 8.8 X10^3/uL (4.5-11.0)
--- NOTE | 2020-11-27 17:26 | PM.PREOP ---
Pre-operative Note COVID-19 COVID-19 status: Result pending Result date/Date tested (Pos, Neg/Pending): 11/27/20 Interval Note History & Physical reviewed/Exam performed by Physician: Yes Changes to H&P: No
[2020-11-27 17:43] LABS: COVID19 - ADMIT (NP swab/PCR) Negative (Negative)
[2020-11-27] MEDS: CEFAZOLIN 2 GM/100 ML FROZ.PIGGY IV (18:26)
--- NOTE | 2020-11-27 18:59 | SUR.OPER ---
Supine on Padded OR bed, head on pillow, safety belt at thigh, arms secured on padded arm boards at <90 degrees abduction. Bump under right buttock. Legs uncrossed with pillow under knees, gel pad to heels, tape over blanket to lower legs.
--- NOTE | 2020-11-27 19:03 | SUR.OPER ---
Viable male delivered at 1844. Cord blood and placenta sent with L&D nurse.
[2020-11-27 19:34] VITALS: BP 131/80; PULSE 96; RESP 19; TEMP 37.3; O2SAT 100
[2020-11-27 19:41] VITALS: BP 140/93; PULSE 96; RESP 25; O2SAT 100
--- NOTE | 2020-11-27 19:42 | PM.OBCS.1 ---
Operative Date/Time/Diagnoses Date of procedure: 11/27/20 Time of procedure: 19:43 Pre-op diagnosis: 38 week gestation with 2 prior sections in active labor, wish for sterilization, abnormal prior scar Post-op diagnosis: same Procedure & Clinicians Procedure: Repeat low-transverse section, bilateral salpingectomies, revision of section scar Same procedure as scheduled: Yes Indications: 38.5 week gestation in active labor with 2 prior sections for repeat section and wish for sterilization. Patient wishing revision of prior section scar. Surgeon: Aleah Sanches Click Yes if Unassisted: No Docket Clerk: Jania Mei Reason for Docket Clerk: Retraction, fundal pressure to deliver the , cutting suturing half the fascial incision Anesthesia Type: Spinal Operative Notes Findings: Normal tubes, ovaries, uterus. Viable male infant weighing 8 lb 4.7 oz with Apgars of 8 and 9 Closure Type: primary Specimen(s): cord blood Intraoperative meds administered: Ketorolac and Pitocin Applied: Catheter (Agrawal) Estimated Blood Loss (mL): 400 Blood products transfused: none Complications: none Baby 1: Gender: Male Presentation: vertex Position: Right Occiput Transverse Placental Delivery Description: Expressed Cord Vessel Description: 3 Vessels score (1 min): 8 score (5 min): 9 weight: 8 lb 4.7 oz Narrative: The patient was brought to the operating room where she underwent a spinal for anesthesia. She was placed in a supine position with a left lateral tilt. A Agrawal catheter was placed. Pulsatile stockings were placed and functional throughout the case. 2 g of Ancef were given IV prior to the incision. Warming was in place. The patient was prepped and draped in usual sterile fashion. A low transverse incision was made excising the prior sections scars with a scalpel and the Bovie. The incision was carried down to the fascial layer which was incised transversely with scissors. The behavioral health assistant did her side of the incision. The midline attachments are superiorly and inferiorly. Some bleeding was controlled Bovie. The rectus muscles were in the midline and the peritoneal incision was made with no damage to internal structures. The peritoneum was incised and superiorly and inferiorly. The incision was stretched with the surgeon and behavioral health assistant placing traction. Bladder blade was placed and a bladder flap was developed and the bladder held away from the lower uterine segment. An incision was made in the uterus with the scalpel and the incision was extended with stretching. The head was elevated out of the abdomen and with fundal pressure by the behavioral health assistant the baby was delivered. The was bulb suctioned for clear fluid and handed off to the warmer. Cord blood was collected. The placenta delivered spontaneously with traction. The uterus was cleaned with clean laps. The uterine incision was closed in 2 layers of 0 chromic suture the first a running locking layer the second an imbricating layer. The behavioral health assistant was helping to expose the incision. The bladder peritoneum was repaired with 2-0 Vicryl suture. The gutters were cleaned of any remaining fluids. Using the Thunderbeat the fallopian tubes were removed cauterizing the mesosalpinx. Dr. Mei did the left fallopian tube. The ovaries were observed to be normal. Adequate hemostasis was noted. The perineum was closed with 2-0 Vicryl suture. The fascia layer was closed with 0 Vicryl suture with 2 stitches. The behavioral health assistant repairing half the incision with helping to retract and expose the incision for the other half. The incision was irrigated and adequate hemostasis noted. The incision was closed with interrupted 3-0 Vicryl sutures and then a subcuticular stitch of 4-0 Vicryl suture. Steri-Strips were placed. The uterus was massaged to remove any clots. The patient went to recovery room in good condition. Counts of instruments and sponges were correct. Dr. Mei was present throughout the case to assist with retraction, excising part of the incision, fundal pressure to deliver the , removing the left fallopian tube and suturing half the fascia. Post-operative Condition: stable Disposition: other ( Center) Aftercare: routine postop
[2020-11-27 19:47] VITALS: BP 131/88; PULSE 80; RESP 25; O2SAT 100
[2020-11-27] MEDS: fentaNYL 100 MCG/2 ML INJ IV ×2 (20:15→20:20)
[2020-11-27] MEDS: OXYCODONE/ACETAMINOPHEN 5/325 TABLET 1 TAB PO (20:53)
[2020-11-27 22:01] VITALS: BP 128/78
[2020-11-27] MEDS: BUTORPHANOL 1 MG/ML VIAL 0.5 MG IV (23:53)
[2020-11-28] MEDS: OXYCODONE IR 10 MG TABLET PO (01:39)
[2020-11-28] MEDS: ACETAMINOPHEN 325 MG TABLET 650 MG PO ×3 (01:39→20:29)
[2020-11-28] MEDS: KETOROLAC 30 MG/ML VIAL IV ×3 (01:39→13:45)
[2020-11-28] MEDS: diphenhydrAMINE 50 MG/ML VIAL 25 MG IV ×2 (03:03→08:00)
[2020-11-28 05:20] LABS: Add Manual Diff / Slide Review NO; Basophils Absolute Auto 0 /uL (0-100); Basophils Percent Auto 0.3 % (0-2); Eosinophils Absolute Auto 100 /uL (0-450); Eosinophils Percent Auto 0.7 % (2-4); Hematocrit 29.5 % (36-46); Hemoglobin 9.8 g/dL (12.0-16.0); Lymphocytes Absolute Auto 2300 /uL (1100-4500); Lymphocytes Percent Auto 22.7 % (25-40); Mean Corpuscular HGB Conc 33.2 % (30-36); Mean Corpuscular Volume 84.2 fL (80-100); Monocytes Absolute Auto 500 /uL (0-900); Monocytes Percent Auto 5.1 % (3-14); Neutrophils Absolute Auto 7100 /uL (1500-7000); Neutrophils Percent Auto 71.2 % (50-75); Platelet Count 212 X10^3/uL (150-400); Red Cell Distribution Width 13.6 % (11.6-14.8); White Blood Cell Count 9.9 X10^3/uL (4.5-11.0)
--- NOTE | 2020-11-28 11:00 | PM.OBPN.1 ---
Subjective - OB Subjective Patient comments: incisional pain and other (Itching every time she takes her pain medicine) baby status: doing well [place] feeding status: breast and bottle feeding Date Patient Seen: 11/28/20 Time Patient Seen: 11:01 Interval history: Patient is complaining of pain. Every time she takes pain medicine she feels itching. She denies nausea. Exam Vital Signs (past 8 hours): Blood pressure 129/79, pulse of 81, temperature 97.4? Oxygen Delivery Method Room Air Narrative Exam Narrative: Abdomen is soft, nontender. Uterus is firm, at U, appropriately tender. Dressing is clean, dry, intact. Mild lochia. Extremities without edema and nontender. Objective Labs Result Diagrams: 11/28/20 05:10 Labs: Laboratory Results - last 24 hr 11/27/20 11/27/20 11/27/20 16:46 17:00 17:00 WBC 8.8 RBC 4.03 Hgb 11.3 L Hct 33.7 L MCV 83.6 MCH 28.1 MCHC 33.6 RDW 13.5 Plt Count 265 Neut % (Auto) 67.6 Lymph % (Auto) 25.3 Mobile % (Auto) 5.4 Eos % (Auto) 1.1 L Baso % (Auto) 0.6 Neut # (Auto) 6000 Lymph # (Auto) 2200 Mobile # (Auto) 500 Eos # (Auto) 100 Baso # (Auto) 100 SARS-CoV-2 (PCR) Negative Blood Type A Negative Antibody Screen Positive Antibody Identification Anti-D Maternal Bleed 11/28/20 11/28/20 05:10 05:10 WBC 9.9 RBC 3.50 L Hgb 9.8 L Hct 29.5 L MCV 84.2 MCH 28.0 MCHC 33.2 RDW 13.6 Plt Count 212 Neut % (Auto) 71.2 Lymph % (Auto) 22.7 L Mobile % (Auto) 5.1 Eos % (Auto) 0.7 L Baso % (Auto) 0.3 Neut # (Auto) 7100 H Lymph # (Auto) 2300 Mobile # (Auto) 500 Eos # (Auto) 100 Baso # (Auto) 0 SARS-CoV-2 (PCR) Blood Type Antibody Screen Antibody Identification Maternal Bleed Negative Assessment & Plan Assessment and Plan (1) Delivery by section at 37-39 weeks of gestation due to labor: Status: Acute (2) Sterilization: Status: Acute Plan day: 1 plan OB: routine postop care Comments: Due to the patient's complaint itching with her pain medicine will try Dilaudid and hydroxyzine. Time Spent With Patient Time: Total time spent is greater than 50% in coordination of care (as documented) at patient's floor/unit and/or counseling patient: Time with patient: less than 15 minutes
[2020-11-28] MEDS: HYDROMORPHONE 4 MG TABLET PO ×3 (12:10→20:30)
[2020-11-28] MEDS: hydrOXYzine pamoate 25 MG CAPSULE PO ×2 (12:10→18:01)
[2020-11-28] MEDS: RHO(D) IMMUNE GLOBULIN 1,500 UNIT SYRINGE 1500 UNIT IM (16:58)
[2020-11-28] MEDS: MAGNESIUM HYDROXIDE 30 ML UDC PO (18:01)
[2020-11-28] MEDS: IBUPROFEN 600 MG TABLET PO (20:29)
[2020-11-29] MEDS: OXYCODONE IR 5 MG TABLET PO ×5 (01:21→22:05)
[2020-11-29] MEDS: hydrOXYzine pamoate 25 MG CAPSULE PO ×2 (01:22→08:31)
[2020-11-29] MEDS: ACETAMINOPHEN 325 MG TABLET 650 MG PO ×4 (03:16→21:22)
[2020-11-29] MEDS: IBUPROFEN 600 MG TABLET PO ×4 (03:16→21:21)
[2020-11-29] MEDS: DOCUSATE 250 MG CAPSULE PO (08:31)
[2020-11-29] MEDS: PRENATAL VIT,CALC/IRON/FOLIC 1 TABLET 1 TAB PO (08:31)
--- NOTE | 2020-11-29 10:13 | PM.OBPN.1 ---
Subjective - OB Subjective Patient comments: incisional pain baby status: doing well feeding status: breast and bottle feeding Date Patient Seen: 11/29/20 Time Patient Seen: 10:13 Interval history: Patient is having a lot of incisional pain. When she is up it feels as if the incision is opening. She feels a little dizzy when she initially gets up but then feels okay. No headaches, scotomata, epigastric pain. Mild bleeding Exam Vital Signs (past 8 hours): Blood pressure 109/66, pulse 79, temperature 98.1? Oxygen Delivery Method Room Air Narrative Exam Narrative: Abdomen is soft, nontender. Uterus is firm, at U, appropriately tender. Dressing is clean, dry, intact with a no obvious bleeding. Mild lochia. Extremities without edema and nontender. Objective Labs Result Diagrams: 11/28/20 05:10 Assessment & Plan Assessment and Plan (1) Delivery by section at 37-39 weeks of gestation due to labor: Status: Acute (2) Sterilization: Status: Acute Plan day: 2 plan OB: routine postop care Comments: We will try a abdominal binder. Recheck CBC Time Spent With Patient Time: Total time spent is greater than 50% in coordination of care (as documented) at patient's floor/unit and/or counseling patient: Time with patient: less than 15 minutes
[2020-11-29] MEDS: LANOLIN OINT 7 GM 1 APPLIC TOP (10:30)
[2020-11-29] MEDS: OXYCODONE IR 10 MG TABLET PO (11:45)
[2020-11-30] MEDS: OXYCODONE IR 5 MG TABLET PO ×2 (01:16→04:40)
[2020-11-30] MEDS: ACETAMINOPHEN 325 MG TABLET 650 MG PO ×2 (03:23→08:54)
[2020-11-30] MEDS: IBUPROFEN 600 MG TABLET PO ×2 (03:24→08:53)
--- NOTE | 2020-11-30 07:24 | P.DS_ITS ---
Discharge Providers Provider Date of admission: 11/27/20 15:46 Discharge Date: 11/30/20 Primary care physician: Noy Sandoval MD Consults: 11/27/20 20:31 Consult to Diesel Maintenance Electrician Routine Comment: Discharge provider: Madelaine Donahue MD Summary Hospital Course Date Patient Seen: 11/30/20 Time Patient Seen: 07:25 Diagnoses: Thirty-eight weeks gestation Previous section Keloid scar Desires permanent sterilization Hospital Course: Patient is a 30-year-old 3 para 3 who presented on November 27, 2020 in active labor. She had 2 previous sections. She desired permanent sterilization. She had a keloid scar. She underwent a repeat low-transverse section, bilateral salpingectomy, and scar revision without complication. Her postoperative course was complicated by some pain management issues which were resolved on postop day # 2. She is discharged home on postop day # 3. She is ambulating independently. Her pain is well controlled. is going well. She has voided without the catheter. No nausea or vomiting. She is tolerating a diet. Peripartum Data Delivery Method: Section Laceration Description: None Episiotomy description: None Procedures: Spinal anesthesia Repeat low-transverse section Bilateral salpingectomy Scar revision complications: other (pain management) 1: Gender: Male Disposition of : home Discharge Diagnosis (1) Delivery by section at 37-39 weeks of gestation due to labor: Status: Acute (2) Sterilization: Status: Acute Status at Discharge Cognitive/behavioral status at discharge: oriented Functional status at discharge: independent ambulation Overall status at discharge: patient is progressing back to baseline Time Spent with Patient Time attestation: Total time spent providing and/or coordinating discharge services: Time spent: Less than 30 minutes Objective Labs Result Diagrams: 11/28/20 05:10 Exam Vital Signs (past 8 hours): Oxygen Delivery Method Room Air Narrative Exam Narrative: Generally: Patient lying in bed, no acute distress Lungs: Clear to auscultation bilaterally Cardiovascular: Regular rate and rhythm Fundus: Firm at U -1 Incision: Clean dry and intact with Aquacel dressing. There are 2 small 1 cm areas of blood on the bandage on the right side. These have not changed. Extremities: 1+ edema, negative Homans Discharge Plan Discharge Plan Patient Disposition: Home Provider Discharge Comment: Call with fever, chills, redness or drainage around the incision, or bleeding vaginally more than a pad in an hour Ibuprofen 600 mg every 6 hours Tylenol 650 mg every 6 hours The swelling in your legs may get worse before it gets better. Keep legs elevated. Push fluids. Discharge orders & Medications Prescriptions: New ibuprofen 600 mg tablet 600 mg PO Q6H PRN (Reason: pain or cramping) Qty: 30 RF: 2 oxycodone 5 mg tablet 5 mg PO Q4H PRN (Reason: pain) Qty: 30 RF: 0 hydroxyzine pamoate [Vistaril] 25 mg capsule 25 mg PO TID PRN (Reason: pain management) Qty: 30 RF: 0 Continued prenat.vits,brigette,[id number]-iedyl Tablet 1 tab PO DAILY RF: 0 Discontinued pantoprazole [Protonix] 20 mg tablet,delayed release (DR/EC) 20 mg PO DAILY Qty: 30 RF: 0 No Action (DME) blood-glucose meter [Blood Glucose Monitoring] Kit See Rx Instructions .ROUTE .MEDSUPPLY Qty: 1 RF: 0 (DME) RELION/TRUE ULTRA LANC 30G MIS See Rx Instructions .Route .MEDSUPPLY Qty: 100 RF: 11 Follow up/Referrals: Madelaine Donahue MD [Physician] - (1 week Aquacel dressing removal) Diet/Activity/Treatments Diet: Regular Activity: No heavy lifting No intercourse Skin/Wound/Dressing Care Report to your healthcare provider any signs of infection, such as:: chills, fever, increased pain, unusual drainage and unusual redness Dressing: Do not remove Visit Report/Discharge Packet Instructions: DI for , DI for Prescription Opioid Use Discharge Data Primary Care Provider: Noy Sandoval
[2020-11-30 08:00] VITALS: BP 128/78; PULSE 80; RESP 25; TEMP 37.3
--- NOTE | 2020-11-30 08:00 | P.DS_ITS ---
History of Present Illness History of Present Illness Date Patient Seen: 11/30/20 Time Patient Seen: 08:01 Chief complaint: EVAL OF LABOR Narrative: Postoperative day 3 repeat low-transverse section with bilateral salpingectomies and revision of scar Discharge Providers Provider Date of admission: 11/27/20 15:46 Discharge Date: 11/30/20 Primary care physician: Noy Sandoval MD Consults: 11/27/20 20:31 Consult to Expeller Operator Routine Comment: Discharge provider: Aleah Sanches MD Summary Hospital Course Discharge Diagnosis: Term with 2 prior sections, wish for sterilization, wish to have scar revision. Hospital Course: Patient underwent a repeat low-transverse section with bilateral salpingectomies and revision of scar. Patient initially had trouble with pain control and was itching from narcotic pain medicine. She is now ambulatory. Tolerating a regular diet. She is urinating well. She has had 2 bowel movements. Her pain is under better control. Mild lochia. Status at Discharge Cognitive/behavioral status at discharge: oriented Functional status at discharge: independent ambulation Overall status at discharge: patient is progressing back to baseline Time Spent with Patient Time spent: Less than 30 minutes Exam Vital Signs (past 8 hours): Blood pressure 115/73, pulse of 85, temperature 98.0? Oxygen Delivery Method Room Air Narrative Exam Narrative: Abdomen is soft, nontender. Uterus is firm, at U, decreased tenderness. Dressing is clean, dry, intact. Mild lochia. Extremities without edema and nontender. Patient received RhoGAM for Rh incompatibility, she received the Tdap in 3rd trimester. She is rubella immune. Objective Labs Result Diagrams: 11/28/20 05:10 [facility] Medical History (Updated 11/27/20 @ 19:38 by Aleah Sanches MD) Anemia (~2016) Anxiety (03/21/16) Anxiety Biliary colic Cholelithiasis Chronic headaches Dysthymia (03/21/16) Exposure to hepatitis B (~2015) Occipital neuralgia Osteomyelitis (~1999) Rh negative state in antepartum period Surgical History H/O section complicating H/O wisdom tooth extraction (~2012) History of primary section (~11/15/12) Status post delivery (12/21/16) Status post cholecystectomy (2017) Status post incision and drainage (~1999) Family History Mother Diabetes mellitus Father Myocardial infarction Sister Hypoglycemic disorder Grandmother Twins, both liveborn Grandfather Unknown whether patient has any health problems Grandmother Unknown whether patient has any health problems Grandfather Unknown whether patient has any health problems Sister Depression Anxiety Social History marital status: number of children: 2 household members: spouse and family lives independently: Yes caregiver/support person: No housing: house pets and animals: Yes (X dog) 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 Routine precautions reviewed with the patient. Discharge Plan Discharge Plan Patient Disposition: Home Provider Discharge Comment: Call with fever, chills, redness or drainage around the incision, or bleeding vaginally more than a pad in an hour Ibuprofen 600 mg every 6 hours Tylenol 650 mg every 6 hours The swelling in your legs may get worse before it gets better. Keep legs elevated. Push fluids. Discharge orders & Medications Prescriptions: New ibuprofen 600 mg tablet 600 mg PO Q6H PRN (Reason: pain or cramping) Qty: 30 RF: 2 oxycodone 5 mg tablet 5 mg PO Q4H PRN (Reason: pain) Qty: 30 RF: 0 hydroxyzine pamoate [Vistaril] 25 mg capsule 25 mg PO TID PRN (Reason: pain management) Qty: 30 RF: 0 Continued prenat.vits,brigette,[id number] Tablet 1 tab PO DAILY RF: 0 Discontinued pantoprazole [Protonix] 20 mg tablet,delayed release (DR/EC) 20 mg PO DAILY Qty: 30 RF: 0 No Action (DME) blood-glucose meter [Blood Glucose Monitoring] Kit See Rx Instructions .ROUTE .MEDSUPPLY Qty: 1 RF: 0 (DME) RELION/TRUE ULTRA LANC 30G MIS See Rx Instructions .Route .MEDSUPPLY Qty: 100 RF: 11 Follow up/Referrals: Madelaine Donahue MD [Physician] - (1 week Aquacel dressing removal) Diet/Activity/Treatments Diet: Regular Activity: No heavy lifting No intercourse Skin/Wound/Dressing Care Report to your healthcare provider any signs of infection, such as:: chills, fever, increased pain, unusual drainage and unusual redness Dressing: Do not remove Visit Report/Discharge Packet Instructions: DI for , DI for Prescription Opioid Use Discharge Data Primary Care Provider: Noy Sandoval
[2020-11-30] MEDS: PRENATAL VIT,CALC/IRON/FOLIC 1 TABLET 1 TAB PO (08:52)
[2020-11-30] MEDS: OXYCODONE IR 10 MG TABLET PO (08:53)
[2020-11-30] MEDS: DOCUSATE 250 MG CAPSULE PO (08:53)
== END 2020-11-30 11:00 | disposition home or self-care (01) | DRG 540 ==
PROVIDERS: Admitting Provider Specialist; PCP Family Medicine; Referring Provider Specialist; Visit Provider Specialist
PROC: 10D00Z1 Extraction of Products of Conception, Low, Open Approach (ICD-10-PCS; CPT 59514; principal; 2020-11-27 18:00)
DX: O34.211 Maternal care for low transverse scar from previous cesarean delivery (principal); N85.8 Other specified noninflammatory disorders of uterus; Z3A.38 38 weeks gestation of pregnancy; Z37.0 Single live birth; Z30.2 Encounter for sterilization; L91.0 Hypertrophic scar; G89.18 Other acute postprocedural pain; T40.605A Adverse effect of unspecified narcotics, initial encounter; O99.72 Diseases of the skin and subcutaneous tissue complicating childbirth; L29.9 Pruritus, unspecified
CPT/HCPCS: 36415; 58661; 59025; 59050; 59514; 85025; 85461; 86850; 86870; 86900; 86901; 87635; C9803; G0379; J0595; J0690; J1200; J1885; J2250; J2274; J2590; J2704; J2790; J3010

== ENCOUNTER 2020-12-16 17:55 | Emergency (ER) | payer OTHER, MEDICAID, SELFPAY ==
[2020-12-16] VITALS (10 sets, daily range): BP systolic 104–141; BP diastolic 61–87; PULSE 62–74; RESP 18; TEMP 36.6; O2SAT 98–100; BMI 36.6
[2020-12-16 18:54] LABS: Add Manual Diff / Slide Review NO; Basophils Absolute Auto 0 /uL (0-100); Basophils Percent Auto 0.7 % (0-2); Eosinophils Absolute Auto 200 /uL (0-450); Eosinophils Percent Auto 3.7 % (2-4); Hematocrit 34.6 % (36-46); Hemoglobin 11.3 g/dL (12.0-16.0); Lymphocytes Absolute Auto 2400 /uL (1100-4500); Lymphocytes Percent Auto 49.1 % (25-40); Mean Corpuscular HGB Conc 32.7 % (30-36); Mean Corpuscular Hemoglobin 27.4 PG (26-34); Monocytes Absolute Auto 300 /uL (0-900); Monocytes Percent Auto 6.3 % (3-14); Neutrophils Absolute Auto 2000 /uL (1500-7000); Neutrophils Percent Auto 40.2 % (50-75); Platelet Count 403 X10^3/uL (150-400); Red Blood Cell Count 4.12 X10^6/uL (4.0-5.2); Red Cell Distribution Width 14.4 % (11.6-14.8)
[2020-12-16 18:59] LABS: Prothrombin Time 10.8 SECONDS (10.1-12.7)
[2020-12-16 19:02] LABS: PTT Partial Thromboplastin Tim 36 SECONDS (26.4-36.2)
[2020-12-16 19:04] LABS: Alanine Aminotransferase 21 IU/L (<35); Albumin 4.1 g/dL (3.5-5.0); Albumin Globulin Ratio 1.4 (1.0-2.8); Alkaline Phosphatase 45 U/L (38-126); Aspartate Aminotransferase 23 IU/L (14-36); BUN Creatinine Ratio 19.5 (6-22); Bilirubin Total 0.5 mg/dL (0.2-1.3); Blood Urea Nitrogen 15 mg/dL (7-17); Calcium 9.1 mg/dL (8.4-10.2); Carbon Dioxide 27 mmol/L (22-32); Chloride 106 mmol/L (98-107); Estimated Glomerular Filt Rate > 60.0 mL/min (>60); Globulin 2.9 g/dL (1.7-4.1); Glucose 102 mg/dL (70-100); HEMOLYSIS < 15 (0-50); Lipase 110 U/L (23-300); Sodium 142 mmol/L (137-145)
[2020-12-16 19:51] LABS: Bacteria Urine Few (2-10); Culture Indicated Urine Specimen Cultured; Mucus Urine 1+ (Negative); RBC Urine 10-30/HPF (0-5/HPF); Squamous Epithelial Cell Urine 1-5 /HPF (0-5/HPF); Transitional Epi Cells Urine 1-5/HPF (0-5/HPF); WBC Urine 10-30/HPF (0-5/HPF)
--- NOTE | 2020-12-16 20:11 | ED_ITS ---
HPI - Abdominal Pain General Chief Complaint: Abdominal Pain Stated Complaint: states blood in stool Time Seen by Provider: 12/16/20 19:09 Source: patient Mode of arrival: Ambulatory Limitations: no limitations History of Present Illness HPI narrative: 30-year-old woman 2 weeks post presents with complaints of bright red blood around her stool and increasing pain in her lower abdomen that she describes as crampy pain. She notes that she continues to have a bit of lochia with no smell in describes it as normal. Like bleeding. She is breast feeding adequately. She has notes that she is having some sweats but no fevers, vomiting, cough, dyspnea. She states that her current pain is segun umbilical radiating down into her lower abdomen bilaterally and is concerned that it feels like her prior gallbladder pain that resulted in a cholecystectomy. Related Data Home Medications Medication Instructions Recorded Confirmed prenat.vits,brigette,[id number] 1 tab PO DAILY 04/28/20 12/06/20 Previous Rx's Medication Instructions Recorded blood-glucose meter #1 each 01/07/20 RELION/TRUE ULTRA LANC 30G MIS #100 ea 08/04/20 hydroxyzine pamoate [Vistaril] 25 mg PO TID PRN #30 cap 11/30/20 ibuprofen 600 mg PO Q6H PRN #30 tab 11/30/20 oxycodone 5 mg PO Q4H PRN #30 tab 11/30/20 cephalexin 500 mg PO TID #21 cap 12/16/20 hydrocortisone [Anusol-HC] 1 applic NV BID-QID PRN #30 g 12/16/20 Allergies Allergy/AdvReac Type Severity Reaction Status Date / Time No Known Drug Allergies Allergy Unknown Verified 12/06/20 13:54 Review of Systems Review of Systems Narrative: Remainder of complete review of systems is otherwise unremarkable except for that included in the HPI. Patient History Medical History Anemia (~2016) Anxiety (03/21/16) Anxiety Biliary colic Cholelithiasis Chronic headaches Dysthymia (03/21/16) Exposure to hepatitis B (~2015) Occipital neuralgia Osteomyelitis (~1999) Rh negative state in antepartum period Surgical History H/O section complicating H/O wisdom tooth extraction (~2012) History of primary section (~11/15/12) Status post delivery (12/21/16) Status post cholecystectomy (2017) Status post incision and drainage (~1999) Family History Mother Diabetes mellitus Father Myocardial infarction Sister Hypoglycemic disorder Grandmother Twins, both liveborn Grandfather Unknown whether patient has any health problems Grandmother Unknown whether patient has any health problems Grandfather Unknown whether patient has any health problems Sister Depression Anxiety Social History marital status: number of children: 2 household members: spouse and family lives independently: Yes caregiver/support person: No housing: house pets and animals: Yes (X dog) education level: college ([place] in [place] needs to re-do to work here in [place]) occupational status: unemployed (Homemaker ) current occupational exposures/hazards: No yamel/oriental orthodox: Jehovah'S Witness special yamel needs: No Smoking Status: Never smoker second hand exposure: No alcohol intake: former (pre- : once in a while) substance use type: does not use Smoking Status: Never smoker Substance Use Type: does not use Exam Narrative Exam Narrative: General: Healthy appearing, in mild distress. Able to give a complete and coherent history. Well-nourished well-developed HEENT: Moist mucous membranes, normal sclera with reactive pupils, Respiratory: Lungs are clear to auscultation, no wheezing no rales no rhonchi. Full and symmetrical air movement Chest: Breasts without significant nipple breakdown or expanding erythema Cardiac: Regular rate and rhythm no murmurs no bruits Abdomen: Soft, diffusely tender without rebound or guarding, good bowel tones, no flank pain Skin: surgical site is clean dry and healing nicely. There is some increasing erythema over the lower portion of her pannus with mild tenderness over this area. No obvious abscess. It does not seem to be immediately connected to the surgical site. Neurologic: Grossly neurologically intact with no obvious asymmetries or abnormalities Extremities: No trauma, well perfused Psych: Cooperative, appropriate insight and affect General exam: She has a 5 mm in diameter external hemorrhoid that is thrombosed and mild internal hemorrhoids with some bleeding on gentle exam. Initial Vital Signs Initial Vital Signs: Vital Signs Temperature 97.8 F 12/16/20 18:06 Pulse Rate 69 12/16/20 18:06 Respiratory Rate 18 12/16/20 18:06 Blood Pressure 141/87 H 12/16/20 18:06 Pulse Oximetry 100 12/16/20 18:06 Course Orders Ordered: ED Orders 12/16/20 18:13 EKG-12 Lead Stat 12/16/20 18:44 Complete Blood Count AUTO DIFF Stat Comprehensive Metabolic Panel Stat Lipase Stat Partial Thromboplastin Time Stat Prothrombin Time INR Stat 12/16/20 19:15 Urine Culture Stat Urine Microscopic Stat 12/16/20 20:12 CT abdomen pelvis w con Stat Discontinued Medications Acetaminophen (Acetaminophen 325 Mg Tablet) 975 mg PO NOW ONE Stop: 12/16/20 20:12 Last Admin: 12/16/20 20:31 Dose: 975 mg Documented by: MIGUELINA Sodium Chloride (Normal Saline 0.9%) 1,000 mls @ 1,000 mls/hr IV BOLUS ONE Stop: 12/16/20 21:10 Last Infusion: 12/16/20 21:53 Dose: 0 mls/hr Documented by: Admin: 12/16/20 20:31 Dose: 1,000 mls/hr Documented by: MIGUELINA Ceftriaxone Sodium/Dextrose (Rocephin) 2 gm in 50 mls @ 100 mls/hr IV NOW ONE Stop: 12/16/20 22:26 Last Infusion: 12/16/20 23:01 Dose: 0 mls/hr Documented by: Admin: 12/16/20 22:15 Dose: 100 mls/hr Documented by: MIGUELINA Vital Signs Vital signs: Vital Signs - 8 hr 12/16/20 18:06 12/16/20 19:26 12/16/20 19:30 Temperature 97.8 F Pulse Rate 69 74 71 Respiratory Rate 18 Blood Pressure 141/87 H 121/75 Pulse Oximetry 100 99 98 12/16/20 19:31 12/16/20 20:00 12/16/20 20:01 Temperature Pulse Rate 71 71 68 Respiratory Rate Blood Pressure 113/64 104/61 Pulse Oximetry 99 99 98 12/16/20 20:30 12/16/20 21:00 12/16/20 21:30 Temperature Pulse Rate 67 69 62 Respiratory Rate Blood Pressure Pulse Oximetry 98 100 99 12/16/20 22:50 Temperature Pulse Rate 64 Respiratory Rate Blood Pressure 113/71 Pulse Oximetry 99 MDM - Abdominal Pain Medical Records Attestation: I reviewed the patient's medical records. Lab Data Attestation: I reviewed the patient's lab results. Result diagrams: 12/16/20 18:44 12/16/20 18:44 Labs: Lab Results 12/16/20 12/16/20 12/16/20 Range/Units 18:44 18:44 18:44 WBC 5.0 (4.5-11.0) X10^3/uL RBC 4.12 (4.0-5.2) X10^6/uL Hgb 11.3 L (12.0-16.0) g/dL Hct 34.6 L (36-46) % MCV 84.0 (80-100) fL MCH 27.4 (26-34) PG MCHC 32.7 (30-36) % RDW 14.4 (11.6-14.8) % Plt Count 403 H (150-400) X10^3/uL Neut % (Auto) 40.2 L (50-75) % Lymph % (Auto) 49.1 H (25-40) % [place] % (Auto) 6.3 (3-14) % Eos % (Auto) 3.7 (2-4) % Baso % (Auto) 0.7 (0-2) % Neut # (Auto) 2000 (9596-6505) /uL Lymph # (Auto) 2400 (3313-6080) /uL [place] # (Auto) 300 (0-900) /uL Eos # (Auto) 200 (0-450) /uL Baso # (Auto) 0 (0-100) /uL PT 10.8 (10.1-12.7) SECONDS INR 1.0 (0.9-1.3) APTT 36 (26.4-36.2) SECONDS Sodium 142 (137-145) mmol/L Potassium 4.0 (3.4-5.1) mmol/L Chloride 106 (98-107) mmol/L Carbon Dioxide 27 (22-32) mmol/L BUN 15 (7-17) mg/dL Creatinine 0.77 (0.52-1.04) mg/dL Estimated GFR > 60.0 (>60) mL/min BUN/Creatinine Ratio 19.5 (6-22) Glucose 102 H (70-100) mg/dL Calcium 9.1 (8.4-10.2) mg/dL Total Bilirubin 0.5 (0.2-1.3) mg/dL AST 23 (14-36) IU/L ALT 21 (<35) IU/L Alkaline Phosphatase 45 (38-126) U/L Total Protein 7.0 (6.3-8.2) g/dL Albumin 4.1 (3.5-5.0) g/dL Globulin 2.9 (1.7-4.1) g/dL Albumin/Globulin Ratio 1.4 (1.0-2.8) Lipase 110 (23-300) U/L Urine RBC (0-5/HPF) Urine WBC (0-5/HPF) Ur Squamous Epith Cells (0-5/HPF) Ur Transition Epith Cell (0-5/HPF) Urine Bacteria (None) Urine Mucus (Negative) Ur Culture Indicated? 12/16/20 Range/Units 19:15 WBC (4.5-11.0) X10^3/uL RBC (4.0-5.2) X10^6/uL Hgb (12.0-16.0) g/dL Hct (36-46) % MCV (80-100) fL MCH (26-34) PG MCHC (30-36) % RDW (11.6-14.8) % Plt Count (150-400) X10^3/uL Neut % (Auto) (50-75) % Lymph % (Auto) (25-40) % [place] % (Auto) (3-14) % Eos % (Auto) (2-4) % Baso % (Auto) (0-2) % Neut # (Auto) (3241-8611) /uL Lymph # (Auto) (5248-0658) /uL [place] # (Auto) (0-900) /uL Eos # (Auto) (0-450) /uL Baso # (Auto) (0-100) /uL PT (10.1-12.7) SECONDS INR (0.9-1.3) APTT (26.4-36.2) SECONDS Sodium (137-145) mmol/L Potassium (3.4-5.1) mmol/L Chloride (98-107) mmol/L Carbon Dioxide (22-32) mmol/L BUN (7-17) mg/dL Creatinine (0.52-1.04) mg/dL Estimated GFR (>60) mL/min BUN/Creatinine Ratio (6-22) Glucose (70-100) mg/dL Calcium (8.4-10.2) mg/dL Total Bilirubin (0.2-1.3) mg/dL AST (14-36) IU/L ALT (<35) IU/L Alkaline Phosphatase (38-126) U/L Total Protein (6.3-8.2) g/dL Albumin (3.5-5.0) g/dL Globulin (1.7-4.1) g/dL Albumin/Globulin Ratio (1.0-2.8) Lipase (23-300) U/L Urine RBC 10-30/hpf H (0-5/HPF) Urine WBC 10-30/hpf H (0-5/HPF) Ur Squamous Epith Cells 1-5 /hpf D (0-5/HPF) Ur Transition Epith Cell 1-5/hpf (0-5/HPF) Urine Bacteria Few (2-10) H (None) Urine Mucus 1+ H (Negative) Ur Culture Indicated? Specimen cultured Point of care testing: Point of Care Testing Test Results Negative Urine Dip Bedside Urine Glucose Negative Bedside Urine Bilirubin - Negative Bedside Urine Ketone - Negative Urine Specific [place] 1.030 Bedside Urine Occult Blood +++ Bedside Urine pH 6.0 Bedside Urine Protein - Negative Bedside Urine Urobilinogen - Negative Bedside Urine Nitrite - Negative Bedside Urine Leukocytes + [address] scan - abdomen/pelvis: Radiologist's Impression: FINDINGS: Image quality: Excellent. ABDOMEN: Lung bases: Lung bases are clear. Heart size is normal. Solid organs: Liver is normal in size and enhancement. Gallbladder is surgically absent. Biliary system is non dilated. Pancreas enhances normally. Spleen is normal in size and enhancement. No adrenal nodules. Kidneys demonstrate normal size and enhancement, without hydronephrosis. Peritoneum and bowel: Bowel loops demonstrate normal wall thickness and caliber. Normal appendix. There is a moderate amount of stool in colon. No free fluid or air. Nodes and vessels: No retroperitoneal or mesenteric adenopathy by size criteria. Aorta and inferior vena cava are normal in size. Miscellaneous: No ventral hernias. Mild stranding in the inferior anterior abdominal wall at midline. PELVIS: Genitourinary: Bladder wall thickness is normal. Uterus is mildly enlarged. There is fluid density within the uterine cavity. Miscellaneous: No inguinal hernias or adenopathy. Bones: No suspicious bony lesions. No vertebral body compression fractures. IMPRESSION: 1. Mild stranding in the inferior anterior abdominal wall. No fluid collections to suggest abscess. 2. Enlarged uterus. There is fluid density within the uterine cavity. Pelvic ultrasound is suggested for follow-up to rule out retained products of conception or endometritis if clinically indicated. 3. Normal appendix. Dictated by: Christina Saunders M.D. on 12/16/2020 at 21:36 MDM Narrative Medical decision making narrative: 30-year-old woman 2 weeks post C- section with increasing abdominal pain periumbilical and entire lower abdomen. site is healing nicely. She states that she still having a normal amount of non odorous lochia flow. Labs are reassuring. CT scan stranding in the inferior anterior abdominal wall fluid density within the uterus and a normal appendix.. Will begin treatment for cellulitis of the lower abdominal wall without evidence of sepsis. Discussed care of hemorrhoids as well as the small, Pea size, thrombosed external hemorrhoid that she is experiencing currently. Discharge Plan Departure Patient Disposition: Home Clinical Impression: Abdominal wall cellulitis, Bleeding external hemorrhoids Instructions: DI for Cellulitis -- Adult, DI for Hemorrhoids Activity Restrictions/Additional Instructions: Thank you for coming in today The CT scan of your abdomen does not show obstruction, appendicitis, diverticulitis, other life-threatening abnormalities. There is some fluid appreciated in your uterus however given the fact that you had a and are still having normal lochia bleeding I am not particularly concerned about this. I suspect the cramping is a combination of the abdominal wall developing infection and post type pain. Your lab work is reassuring without evidence of overwhelming infection. I have given you a dose of ceftriaxone, and antibiotic, to begin treatment for the cellulitis of the lower abdominal wall. I will give you a prescription for cephalexin, a similar antibiotic, to continue for the next week. Both of these are safe with breast-feeding. Please schedule follow-up appointment with Dr. Donahue within the next couple of days. If you have worsening bleeding, cramping, fevers, chills or develop new and changing symptoms, please feel free to return to the ER Prescriptions: New cephalexin 500 mg capsule 500 mg PO TID Qty: 21 RF: 0 hydrocortisone [Anusol-HC] 2.5 % cream with perineal applicator 1 applic NV BID-QID PRN (Reason: hemorrhoids) Qty: 30 RF: 0 No Action (DME) blood-glucose meter [Blood Glucose Monitoring] Kit See Rx Instructions .ROUTE .MEDSUPPLY Qty: 1 RF: 0 (DME) RELION/TRUE ULTRA LANC 30G MIS See Rx Instructions .Route .MEDSUPPLY Qty: 100 RF: 11 prenat.vits,brigette,[id number] Tablet 1 tab PO DAILY RF: 0 ibuprofen 600 mg tablet 600 mg PO Q6H PRN (Reason: pain or cramping) Qty: 30 RF: 2 oxycodone 5 mg tablet 5 mg PO Q4H PRN (Reason: pain) Qty: 30 RF: 0 hydroxyzine pamoate [Vistaril] 25 mg capsule 25 mg PO TID PRN (Reason: pain management) Qty: 30 RF: 0 Referrals: Noy Sanodval MD [Primary Care Provider] -
--- NOTE | 2020-12-16 20:12 | DI.CT.S_ITS ---
PROCEDURE: CT ABDOMEN PELVIS W CON INDICATIONS: segun umbilical and low abdominal pain TECHNIQUE: After the administration of intravenous contrast, 5 mm thick sections acquired from the diaphragm to the symphysis. 5 mm coronal and sagittal reformats were acquired. For radiation dose reduction, the following was used: automated exposure control, adjustment of mA and/or kV according to patient size. COMPARISON: None. FINDINGS: Image quality: Excellent. ABDOMEN: Lung bases: Lung bases are clear. Heart size is normal. Solid organs: Liver is normal in size and enhancement. Gallbladder is surgically absent. Biliary system is non dilated. Pancreas enhances normally. Spleen is normal in size and enhancement. No adrenal nodules. Kidneys demonstrate normal size and enhancement, without hydronephrosis. Peritoneum and bowel: Bowel loops demonstrate normal wall thickness and caliber. Normal appendix. There is a moderate amount of stool in colon. No free fluid or air. Nodes and vessels: No retroperitoneal or mesenteric adenopathy by size criteria. Aorta and inferior vena cava are normal in size. Miscellaneous: No ventral hernias. Mild stranding in the inferior anterior abdominal wall at midline. PELVIS: Genitourinary: Bladder wall thickness is normal. Uterus is mildly enlarged. There is fluid density within the uterine cavity. Miscellaneous: No inguinal hernias or adenopathy. Bones: No suspicious bony lesions. No vertebral body compression fractures. IMPRESSION: 1. Mild stranding in the inferior anterior abdominal wall. No fluid collections to suggest abscess. 2. Enlarged uterus. There is fluid density within the uterine cavity. Pelvic ultrasound is suggested for follow-up to rule out retained products of conception or endometritis if clinically indicated. 3. Normal appendix. Dictated by: Christina Saunders M.D. on 12/16/2020 at 21:36 Approved by: Christina Saunders M.D. on 12/16/2020 at 21:39
[2020-12-16] MEDS: ACETAMINOPHEN 325 MG TABLET 975 MG PO (20:31)
[2020-12-16] MEDS: SODIUM CHLORIDE 0.9% 1,000 ML 1000 ML IV (20:31)
--- NOTE | 2020-12-16 21:46 | PC.NURSE ---
Pt provided with pumping equipment, instructed on machine use
[2020-12-16] MEDS: CEFTRIAXONE 2 GM/50 ML FROZ.PIGGY IV (22:15)
== END 2020-12-16 23:03 | disposition home or self-care (01) ==
PROVIDERS: Emergency Provider Emergency Medicine; PCP Family Medicine
DX: L03.311 Cellulitis of abdominal wall (principal); K64.4 Residual hemorrhoidal skin tags
CPT/HCPCS: 36415; 74177; 80053; 81003; 81015; 81025; 83690; 85025; 85610; 85730; 87086; 96361; 96374; 99284; J0696

== ENCOUNTER → 2021-08-24 06:28 | Outpatient (CLI) | payer OTHER, MEDICAID, SELFPAY ==
[2021-08-24 10:08] LABS: Add Manual Diff / Slide Review NO; Basophils Absolute Auto 0 /uL (0-100); Basophils Percent Auto 0.5 % (0-2); Eosinophils Absolute Auto 300 /uL (0-450); Eosinophils Percent Auto 4.4 % (2-4); Hematocrit 39.5 % (36-46); Hemoglobin 13.2 g/dL (12.0-16.0); Lymphocytes Absolute Auto 2100 /uL (1100-4500); Lymphocytes Percent Auto 35.8 % (25-40); Mean Corpuscular HGB Conc 33.4 % (30-36); Mean Corpuscular Hemoglobin 28.9 PG (26-34); Mean Corpuscular Volume 86.6 fL (80-100); Monocytes Absolute Auto 300 /uL (0-900); Neutrophils Absolute Auto 3100 /uL (1500-7000); Neutrophils Percent Auto 53.3 % (50-75); Platelet Count 357 X10^3/uL (150-400); Red Blood Cell Count 4.56 X10^6/uL (4.0-5.2); Red Cell Distribution Width 13.8 % (11.6-14.8); White Blood Cell Count 5.8 X10^3/uL (4.5-11.0)
[2021-08-24 10:31] LABS: Alanine Aminotransferase 22 IU/L (<35); Albumin 4.5 g/dL (3.5-5.0); Albumin Globulin Ratio 1.5 (1.0-2.8); Alkaline Phosphatase 33 U/L (38-126); Aspartate Aminotransferase 23 IU/L (14-36); BUN Creatinine Ratio 25.7 (6-22); Bilirubin Total 0.9 mg/dL (0.2-1.3); Blood Urea Nitrogen 18 mg/dL (7-17); Calcium 8.9 mg/dL (8.4-10.2); Carbon Dioxide 30 mmol/L (22-32); Chloride 103 mmol/L (98-107); Cholesterol 126 mg/dL (140-199); Estimated Glomerular Filt Rate > 60.0 mL/min (>60); Globulin 3.1 g/dL (1.7-4.1); Glucose 78 mg/dL (70-100); HDL Cholesterol 55 mg/dL (40-60); HEMOLYSIS < 15 (0-50); LDL Cholesterol Calculated 63 mg/dL (<100); Potassium 4.2 mmol/L (3.4-5.1); Sodium 138 mmol/L (137-145); Total Protein 7.6 g/dL (6.3-8.2); Triglycerides 38 mg/dL (35-150)
[2021-08-24 11:17] LABS: TSH w/ Reflex to FT4 1.74 uIU/mL (0.47-4.68)
== END ==
PROVIDERS: PCP Family Medicine; Referring Provider Physician Assistant; Visit Provider Physician Assistant
DX: R00.0 Tachycardia, unspecified (principal); R07.9 Chest pain, unspecified; Z82.49 Family history of ischemic heart disease and other diseases of the circulatory system
CPT/HCPCS: 36415; 80053; 80061; 84443; 85025

== ENCOUNTER 2021-10-09 08:36 | Emergency (ER) | payer OTHER, MEDICAID, SELFPAY ==
[2021-10-09] VITALS (10 sets, daily range): BP systolic 98–121; BP diastolic 69–83; PULSE 63–80; RESP 16–20; TEMP 36.7; O2SAT 96–100; BMI 33.3
--- NOTE | 2021-10-09 09:01 | ED_ITS ---
HPI - Neuro Symptoms/Deficit General Chief Complaint: Neuro Symptoms/Deficit Stated Complaint: Lt. sided head and face tingling Time Seen by Provider: 10/09/21 09:01 Source: patient Mode of arrival: EMS Limitations: no limitations History of Present Illness HPI Narrative: This is a 31-year-old female comes emergency department who states that upon awakening she had left-sided headache radiating from the back of her head towards the front. She states she has tingling and numbness of her face, lips and entire body. Patient states that she knows particular her upper extremities but that is present lower extremities as well. She denies any acute vision changes. She states her lips sort of feels swollen and dry. She has been afebrile. She denies chest pain or pressure, no shortness of breath. She denies any nausea or vomiting. No diarrhea constipation. No urinary symptoms. She has not had any specific weakness. She has had a history of acceptable Neurology but states that she had pain in her neck and had injections she states this feels different. Patient denies any daily medications. She did try ibuprofen with no improvement. She denies tobacco, alcohol or illicit. She states her father had a heart attack at age 50. She states her siblings are all healthy. Her primary care is Liliya Krishna. On Anticoagulants: No Related Data Previous Rx's Medication Instructions Recorded ibuprofen 600 mg tablet 600 mg PO Q6H PRN #30 tab 11/30/20 blood sugar diagnostic (True #100 ea 08/18/21 Metrix Glucose Test Strip) blood-glucose meter (Blood Glucose #1 each 08/18/21 Monitoring) lancets #100 ea 09/21/21 [id number]-[id number]-[id number] 1 cap PO Q8H PRN #10 cap 10/09/21 50 mg-300 mg-40 mg capsule (Fioricet) Allergies Allergy/AdvReac Type Severity Reaction Status Date / Time No Known Drug Allergies Allergy Unknown Verified 08/23/21 11:21 Review of Systems Review of Systems ROS Unobtainable: All systems reviewed & are unremarkable except as noted in HPI and below Hematologic/Lymphatic On Anticoagulants: No Patient History Medical History (Updated 10/09/21 @ 10:15 by Lise Jasso DO) Anemia (~2016) Anxiety (03/21/16) Anxiety Biliary colic Cholelithiasis Chronic headaches Dysthymia (03/21/16) Exposure to hepatitis B (~2015) Occipital neuralgia Osteomyelitis (~1999) Rh negative state in antepartum period Surgical History H/O section complicating H/O wisdom tooth extraction (~2012) History of primary section (~11/15/12) Status post delivery (12/21/16) Status post cholecystectomy (2016) Status post incision and drainage (~1999) Family History Mother Diabetes mellitus Father Myocardial infarction Sister Hypoglycemic disorder Grandmother Twins, both liveborn Grandfather Unknown whether patient has any health problems Grandmother Unknown whether patient has any health problems Grandfather Unknown whether patient has any health problems Sister Depression Anxiety Social History marital status: number of children: 2 household members: spouse and family lives independently: Yes caregiver/support person: No housing: house pets and animals: Yes (X dog) education level: college (MA in [place] needs to re-do to work 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 HEENT: Atraumatic, pupils are equal round reactive to light, extraocular movements are intact, no nystagmus, no photophobia, nares are clear, TMs are clear with no fluid, there is no conjunctival pallor. Throat is clear without any exudates, erythema, tonsillar enlargement or uvular deviation, no facial droop. HEART: Regular rate and rhythm without murmur, clicks, rubs. LUNGS:Lungs clear to auscultation, no wheezes, rales, crackles, chest moves symmetrically ABD:bowel sounds normal, soft, non-tender, no guarding, rebound, rigidity, no masses noted, no hepatosplenomegaly MSCL: Non-tender, no muscle atrophy, muscles strength 5/5 upper and lower extremities, full range of motion. Patient does continuously flex and extend her fingers making a fist voluntarily which she states she is doing because of the tingling sensation. NEURO:CN 2-12 intact, sensation normal equal bilaterally although patient states it feels numb on her face and upper extremities but the same on both sides, finger nose finger test normal, heel allen test normal, romberg normal SKIN: No rash, erythema or other skin changes. Initial Vital Signs Initial Vital Signs: Vital Signs Pulse Rate 80 10/09/21 08:41 Respiratory Rate 20 10/09/21 08:41 Pulse Oximetry 100 10/09/21 08:41 Scores NIH Stroke Scale Level of Conciousness: Alert, keenly responsive Ask month/age: Answers both questions correctly. Open/close eyes, close hand: Performs both tasks correctly Best gaze horizontal: Normal Visual [place]: No visual loss Facial palsy: Normal symetrical movement Left arm drift: No drift for full 10 sec Right arm drift: No drift for full 10 sec Left leg drift: No drift for full 5 sec Right leg drift: No drift for full 5 sec Limb ataxia: Absent Sensory on face/arms/legs: Mild to moderate sensory loss, can tell touch (mike ateral face and arms.) Best language: No aphasia, normal Dysarthria: Normal Extinction or inattention: No abnormality Total NIH Stroke scale score: 1 Course Orders Ordered: Discontinued Medications Diphenhydramine HCl (Diphenhydramine 50 Mg/Ml Vial) 25 mg IV NOW ONE Stop: 10/09/21 11:18 Last Admin: 10/09/21 11:24 Dose: 25 mg Documented by: LY Ketorolac Tromethamine (Ketorolac 30 Mg/Ml Vial) 15 mg IV NOW ONE Stop: 10/09/21 09:20 Last Admin: 10/09/21 09:25 Dose: 15 mg Documented by: LY Metoclopramide HCl (Metoclopramide 10 Mg/2 Ml Inj) 10 mg IV NOW ONE Stop: 10/09/21 11:17 Last Admin: 10/09/21 11:24 Dose: 10 mg Documented by: LY Reevaluation(s) Reevaluation #1: Patient's headache is still present, tingling has resolved, she still feels sort of numb on the side of her face but not tingling elsewhere. Time: 11:05 Vital Signs Vital signs: Vital Signs - 8 hr 10/09/21 08:41 10/09/21 08:48 10/09/21 09:00 Temperature 98.0 F Pulse Rate 80 66 64 Respiratory Rate 20 18 16 Blood Pressure 121/80 98/69 Pulse Oximetry 100 100 96 10/09/21 09:36 10/09/21 09:56 10/09/21 10:00 Temperature Pulse Rate 75 68 69 Respiratory Rate 19 16 17 Blood Pressure 109/76 119/83 Pulse Oximetry 99 99 98 10/09/21 10:30 10/09/21 11:00 Temperature Pulse Rate 70 63 Respiratory Rate 19 18 Blood Pressure 110/73 104/69 Pulse Oximetry 99 100 MDM - Neuro Symptoms/Deficit Lab Data Result diagrams: 10/09/21 09:13 10/09/21 09:13 Labs: Lab Results 10/09/21 10/09/21 10/09/21 Range/Units 09:13 09:13 10:00 WBC 5.3 (4.5-11.0) X10^3/uL RBC 4.54 (4.0-5.2) X10^6/uL Hgb 13.3 (12.0-16.0) g/dL Hct 39.4 (36-46) % MCV 86.8 (80-100) fL MCH 29.3 (26-34) PG MCHC 33.8 (30-36) % RDW 13.9 (11.6-14.8) % Plt Count 273 (150-400) X10^3/uL Neut % (Auto) 60.5 (50-75) % Lymph % (Auto) 28.7 (25-40) % [place] % (Auto) 6.3 (3-14) % Eos % (Auto) 3.9 (2-4) % Baso % (Auto) 0.6 (0-2) % Neut # (Auto) 3200 (2395-8390) /uL Lymph # (Auto) 1500 (5112-6496) /uL [place] # (Auto) 300 (0-900) /uL Eos # (Auto) 200 (0-450) /uL Baso # (Auto) 0 (0-100) /uL Sodium 138 (137-145) mmol/L Potassium 3.7 (3.4-5.1) mmol/L Chloride 106 (98-107) mmol/L Carbon Dioxide 27 (22-32) mmol/L BUN 13 (7-17) mg/dL Creatinine 0.57 (0.52-1.04) mg/dL Estimated GFR > 60.0 (>60) mL/min BUN/Creatinine Ratio 22.8 H (6-22) Glucose 91 (70-100) mg/dL Calcium 8.9 (8.4-10.2) mg/dL Total Bilirubin 1.1 (0.2-1.3) mg/dL AST 21 (14-36) IU/L ALT 20 (<35) IU/L Alkaline Phosphatase 37 L (38-126) U/L Total Protein 7.7 (6.3-8.2) g/dL Albumin 4.5 (3.5-5.0) g/dL Globulin 3.2 (1.7-4.1) g/dL Albumin/Globulin Ratio 1.4 (1.0-2.8) Urine RBC None seen (0-5/HPF) Urine WBC 1-5/hpf (0-5/HPF) Ur Squamous Epith Cells 1-5 /hpf (0-5/HPF) Urine Bacteria Moderate (10-30) H (None) Ur Culture Indicated? Specimen cultured Point of Care Testing Test Results Negative Urine Dip Bedside Urine Glucose Negative Bedside Urine Bilirubin - Negative Bedside Urine Ketone + 15 Urine Specific [place] 1.010 Bedside Urine Occult Blood - Negative Bedside Urine pH 6.0 Bedside Urine Protein - Negative Bedside Urine Urobilinogen 0.2 Bedside Urine Nitrite - Negative Bedside Urine Leukocytes - Negative Esterase Imaging Data CT scan - head: Radiologist's Impression: [address] [address] [address] Scan Report Signed Patient: Sharon Baca MR#: [id number] : 1990 Acct:[id number] Age/Sex: 31 / F Date of Service: 10/09/21 Loc: ED Accession Number: [id number] ?? Procedure: CT head/brain wo con Ordering Provider: Lise Jasso D.O. PROCEDURE:? CT HEAD/BRAIN WO CON ? INDICATIONS:? headache left sided, tingling ? TECHNIQUE:? Noncontrast 4.5 mm thick angled axial sections acquired from the foramen magnum to the vertex, with coronal and sagittal reformats.? For radiation dose reduction, the following was used:? automated exposure control, adjustment of mA and/or kV according to patient size.? ? COMPARISON:? None. ? FINDINGS:? Image quality:? Excellent.? ? CSF spaces:? Basal cisterns are patent.? No extra-axial fluid collections.? Ventricles are normal in size and shape.? ? Brain:? No midline shift.? No intracranial masses or hemorrhage.? Aggarwal-white matter interface is normal.? ? Skull and face:? Calvarium and visualized facial bones are intact, without suspicious lesions.? ? Sinuses:? Visualized sinuses and mastoids are clear.? ? IMPRESSION:? No evidence acute intracranial process. ? ? Dictated by: Kam Pennington M.D. on 10/09/2021 at 8:42 ? ? Approved by: Kam Pennington M.D. on 10/09/2021 at 8:43?? MDM Narrative Medical decision making narrative: This is a 31-year-old female who presents with headache upon awakening that she describes as intense. Tingling of her entire body. Patient describes feeling dull bilateral upper extremities and face but normal sensation in bilateral lower extremities. Her neurologic exam is otherwise normal and she has sensation to light touch throughout her exam. Plan to evaluate for electrolytes, head CT. My suspicion very low. With complaint of headache plan to treat as this may be a typical migraine although patient denies aura, photophobia. She has had occipital neuralgia in the past. Head CT is negative, labs show no acute changes. Reviewed findings. Patient states headache is still present but tingling has resolved. She still has numbness on her face but no facial droop. Her tingling elsewhere has also resolved. Discussed potential differential. That she may need follow-up. Will send prescription for Fioricet this might be a migraine variant although is somewhat I have typical. Discharge Plan Departure Patient Disposition: Home Clinical Impression: Headache, Paresthesias Instructions: DI for Headache Activity Restrictions/Additional Instructions: Follow-up with your physician for recheck. You may take Fioricet 1-2 tablets every 8 hours as needed. Prescription sent to [facility]. Please return for fevers, sudden vision changes, new weakness, loss of sensation, loss of bowel or bladder control, persistent vomiting, new chest pain or shortness of breath or other new or concerning symptoms. Prescriptions: New sfgdpetujw-[id number]-dggn [Fioricet] 50-300-40 mg capsule 1 cap PO Q8H PRN (Reason: pain) Qty: 10 0RF No Action (DME) blood-glucose meter [Blood Glucose Monitoring] Kit See Rx Instructions .ROUTE .MEDSUPPLY Qty: 1 0RF Rx Instructions: check blood sugar twice a day or when shakey (DME) True Metrix Glucose Test Strip Strip See Rx Instructions .Route Qty: 100 0RF Rx Instructions: USE ONE STRIP TO TEST BLOOD SUGAR TWICE DAILY OR NEEDED FOR SHAKINESS (DME) lancets Misc See Rx Instructions .Route Qty: 100 3RF Rx Instructions: USE 1 TO CHECK GLUCOSE TWICE DAILY OR NEEDED FOR SHAKINESS ibuprofen 600 mg tablet 600 mg PO Q6H PRN (Reason: pain or cramping) Qty: 30 2RF Referrals: Noy Sandoval MD [Primary Care Provider] -
--- NOTE | 2021-10-09 09:19 | DI.CT.S_ITS ---
PROCEDURE: CT HEAD/BRAIN WO CON INDICATIONS: headache left sided, tingling TECHNIQUE: Noncontrast 4.5 mm thick angled axial sections acquired from the foramen magnum to the vertex, with coronal and sagittal reformats. For radiation dose reduction, the following was used: automated exposure control, adjustment of mA and/or kV according to patient size. COMPARISON: None. FINDINGS: Image quality: Excellent. CSF spaces: Basal cisterns are patent. No extra-axial fluid collections. Ventricles are normal in size and shape. Brain: No midline shift. No intracranial masses or hemorrhage. Aggarwal-white matter interface is normal. Skull and face: Calvarium and visualized facial bones are intact, without suspicious lesions. Sinuses: Visualized sinuses and mastoids are clear. IMPRESSION: No evidence acute intracranial process. Dictated by: Kam Pennington M.D. on 10/09/2021 at 8:42 Approved by: Kam Pennington M.D. on 10/09/2021 at 8:43
[2021-10-09 09:21] LABS: Add Manual Diff / Slide Review NO; Basophils Absolute Auto 0 /uL (0-100); Basophils Percent Auto 0.6 % (0-2); Eosinophils Absolute Auto 200 /uL (0-450); Eosinophils Percent Auto 3.9 % (2-4); Hematocrit 39.4 % (36-46); Hemoglobin 13.3 g/dL (12.0-16.0); Lymphocytes Absolute Auto 1500 /uL (1100-4500); Lymphocytes Percent Auto 28.7 % (25-40); Mean Corpuscular HGB Conc 33.8 % (30-36); Mean Corpuscular Hemoglobin 29.3 PG (26-34); Mean Corpuscular Volume 86.8 fL (80-100); Monocytes Absolute Auto 300 /uL (0-900); Monocytes Percent Auto 6.3 % (3-14); Neutrophils Absolute Auto 3200 /uL (1500-7000); Neutrophils Percent Auto 60.5 % (50-75); Platelet Count 273 X10^3/uL (150-400); Red Blood Cell Count 4.54 X10^6/uL (4.0-5.2); Red Cell Distribution Width 13.9 % (11.6-14.8); White Blood Cell Count 5.3 X10^3/uL (4.5-11.0)
[2021-10-09] MEDS: KETOROLAC 30 MG/ML VIAL 15 MG IV (09:25)
[2021-10-09 09:32] LABS: Alanine Aminotransferase 20 IU/L (<35); Albumin 4.5 g/dL (3.5-5.0); Albumin Globulin Ratio 1.4 (1.0-2.8); Alkaline Phosphatase 37 U/L (38-126); Aspartate Aminotransferase 21 IU/L (14-36); BUN Creatinine Ratio 22.8 (6-22); Bilirubin Total 1.1 mg/dL (0.2-1.3); Blood Urea Nitrogen 13 mg/dL (7-17); Calcium 8.9 mg/dL (8.4-10.2); Carbon Dioxide 27 mmol/L (22-32); Chloride 106 mmol/L (98-107); Estimated Glomerular Filt Rate > 60.0 mL/min (>60); Globulin 3.2 g/dL (1.7-4.1); Glucose 91 mg/dL (70-100); HEMOLYSIS < 15 (0-50); Potassium 3.7 mmol/L (3.4-5.1); Sodium 138 mmol/L (137-145); Total Protein 7.7 g/dL (6.3-8.2)
[2021-10-09 10:42] LABS: Bacteria Urine Moderate (10-30); Culture Indicated Urine Specimen Cultured; RBC Urine None Seen (0-5/HPF); Squamous Epithelial Cell Urine 1-5 /HPF (0-5/HPF); WBC Urine 1-5/HPF (0-5/HPF)
--- NOTE | 2021-10-09 11:05 | PC.NURSE ---
burning epigastric chest pain/heartburn
[2021-10-09] MEDS: METOCLOPRAMIDE 10 MG/2 ML INJ IV (11:24)
[2021-10-09] MEDS: diphenhydrAMINE 50 MG/ML VIAL 25 MG IV (11:24)
== END 2021-10-09 11:52 | disposition home or self-care (01) ==
PROVIDERS: Emergency Provider Emergency Medicine; PCP Family Medicine
DX: R51.9 Headache, unspecified (principal); R20.2 Paresthesia of skin
CPT/HCPCS: 36415; 70450; 80053; 81003; 81015; 81025; 85025; 87086; 96374; 96375; 99284; J1200; J1885; J2765

== ENCOUNTER → 2022-01-17 12:22 | Outpatient (CLI) | payer OTHER, MEDICAID, SELFPAY ==
--- NOTE | 2022-01-17 12:27 | DI.RAD.S_ITS ---
PROCEDURE: XR CERVICAL SPINE 2V OR 3V INDICATIONS: neck pain TECHNIQUE: 3 view(s) of the cervical spine were acquired. COMPARISON: None. FINDINGS: Bones: No fractures or dislocations to the C7 level. Loss of normal cervical lordosis. The lateral masses of C1 appear intact on the odontoid view. No suspicious bony lesions. Soft tissues: No prevertebral soft tissue swelling. IMPRESSION: No acute fracture. No osseous lesion. If symptoms and/or clinical suspicion for pathology persist, further assessment with repeat, or advanced imaging (e.g., CT, MRI, or bone scan) may be helpful for further assessment. Dictated by: Lupe Desouza M.D. on 01/17/2022 at 14:28 Approved by: Lupe Desouza M.D. on 01/17/2022 at 16:45
--- NOTE | 2022-01-17 12:27 | DI.RAD.S_ITS ---
PROCEDURE: XR THORACIC SPINE 3V INDICATIONS: Back Pain TECHNIQUE: 3 views of the thoracic spine were acquired. COMPARISON: None. FINDINGS: Bones: No fractures or dislocations. No suspicious bony lesions. Visualized ribs are intact. Multilevel disc space narrowing and endplate osteophyte formation throughout the mid and lower thoracic spine. Soft tissues: No paravertebral stripe thickening. IMPRESSION: Degenerative disc disease. No acute fracture. No osseous lesion. If symptoms and/or clinical suspicion for pathology persist, further assessment with repeat, or advanced imaging (e.g., CT, MRI, or bone scan) may be helpful for further assessment. Dictated by: Lupe Desouza M.D. on 01/17/2022 at 14:31 Approved by: Lupe Desouza M.D. on 01/17/2022 at 16:44
== END ==
PROVIDERS: PCP Family Medicine; Referring Provider Family Medicine; Visit Provider Family Medicine
DX: M54.2 Cervicalgia (principal); M51.34 Other intervertebral disc degeneration, thoracic region; M54.9 Dorsalgia, unspecified
CPT/HCPCS: 72040; 72072

== ENCOUNTER → 2022-09-13 16:17 | Outpatient (CLI) | payer OTHER, MEDICAID, SELFPAY ==
[2022-09-13 17:39] LABS: Add Manual Diff / Slide Review NO; Basophils Absolute Auto 0 /uL (0-100); Basophils Percent Auto 0.4 % (0-2); Eosinophils Absolute Auto 200 /uL (0-450); Eosinophils Percent Auto 3.3 % (2-4); Hematocrit 38.9 % (36-46); Lymphocytes Absolute Auto 2600 /uL (1100-4500); Lymphocytes Percent Auto 38.9 % (25-40); Mean Corpuscular HGB Conc 33.3 % (30-36); Mean Corpuscular Hemoglobin 29.5 PG (26-34); Mean Corpuscular Volume 88.6 fL (80-100); Monocytes Absolute Auto 400 /uL (0-900); Monocytes Percent Auto 6.2 % (3-14); Neutrophils Absolute Auto 3500 /uL (1500-7000); Neutrophils Percent Auto 51.2 % (50-75); Platelet Count 309 X10^3/uL (150-400); Red Blood Cell Count 4.39 X10^6/uL (4.0-5.2); Red Cell Distribution Width 13.3 % (11.6-14.8); White Blood Cell Count 6.8 X10^3/uL (4.5-11.0)
[2022-09-13 17:47] LABS: Hemoglobin A1C% w Est Avg Glu 5.2 % (4.0-6.0)
[2022-09-13 18:29] LABS: Alanine Aminotransferase 33 IU/L (<35); Albumin 4.4 g/dL (3.5-5.0); Albumin Globulin Ratio 1.4 (1.0-2.8); Alkaline Phosphatase 34 U/L (38-126); Aspartate Aminotransferase 29 IU/L (14-36); BUN Creatinine Ratio 20.3 (6-22); Bilirubin Total 0.7 mg/dL (0.2-1.3); Blood Urea Nitrogen 13 mg/dL (7-17); Calcium 8.8 mg/dL (8.4-10.2); Carbon Dioxide 27 mmol/L (22-32); Chloride 102 mmol/L (98-107); Cholesterol 113 mg/dL (140-199); Estimated Glomerular Filt Rate > 60 mL/min (>60); Globulin 3.1 g/dL (1.7-4.1); Glucose 100 mg/dL (70-100); HDL Cholesterol 51 mg/dL (40-60); HEMOLYSIS < 15 (0-50); LDL Cholesterol Calculated 48 mg/dL (<100); Lipase 84 U/L (23-300); Potassium 3.9 mmol/L (3.4-5.1); Sodium 141 mmol/L (137-145); Total Protein 7.5 g/dL (6.3-8.2); Triglycerides 72 mg/dL (35-150)
== END ==
PROVIDERS: PCP Family Medicine; Referring Provider Family Medicine; Visit Provider Family Medicine
DX: R10.13 Epigastric pain (principal); R12 Heartburn; R19.7 Diarrhea, unspecified
CPT/HCPCS: 36415; 80053; 80061; 83036; 83690; 85025

== ENCOUNTER 2022-10-12 16:35 | Emergency (ER) | payer OTHER, MEDICAID, SELFPAY ==
[2022-10-12] VITALS (9 sets, daily range): BP systolic 122–131; BP diastolic 80–90; PULSE 74–88; RESP 18–20; TEMP 36.9; O2SAT 96–100; BMI 35.7
[2022-10-12 17:31] LABS: Add Manual Diff / Slide Review NO; Basophils Absolute Auto 0 /uL (0-100); Basophils Percent Auto 0.6 % (0-2); Eosinophils Absolute Auto 300 /uL (0-450); Eosinophils Percent Auto 3.6 % (2-4); Hematocrit 38.5 % (36-46); Lymphocytes Absolute Auto 2100 /uL (1100-4500); Mean Corpuscular HGB Conc 33.7 % (30-36); Mean Corpuscular Hemoglobin 29.6 PG (26-34); Mean Corpuscular Volume 87.9 fL (80-100); Monocytes Absolute Auto 500 /uL (0-900); Monocytes Percent Auto 6.3 % (3-14); Neutrophils Absolute Auto 4500 /uL (1500-7000); Neutrophils Percent Auto 60.5 % (50-75); Platelet Count 327 X10^3/uL (150-400); Red Blood Cell Count 4.38 X10^6/uL (4.0-5.2); Red Cell Distribution Width 13.4 % (11.6-14.8); White Blood Cell Count 7.4 X10^3/uL (4.5-11.0)
[2022-10-12 17:33] LABS: Bacteria Urine Moderate (10-30); RBC Urine 30-100/HPF (0-5/HPF); WBC Urine 1-5/HPF (0-5/HPF)
[2022-10-12 17:38] LABS: Alanine Aminotransferase 25 IU/L (<35); Albumin 4.3 g/dL (3.5-5.0); Albumin Globulin Ratio 1.4 (1.0-2.8); Alkaline Phosphatase 37 U/L (38-126); Aspartate Aminotransferase 21 IU/L (14-36); BUN Creatinine Ratio 18.3 (6-22); Bilirubin Total 0.6 mg/dL (0.2-1.3); Blood Urea Nitrogen 13 mg/dL (7-17); Calcium 8.7 mg/dL (8.4-10.2); Carbon Dioxide 30 mmol/L (22-32); Chloride 105 mmol/L (98-107); Estimated Glomerular Filt Rate > 60 mL/min (>60); Globulin 3.1 g/dL (1.7-4.1); Glucose 103 mg/dL (70-100); HEMOLYSIS < 15 (0-50); Lipase 70 U/L (23-300); Potassium 4.3 mmol/L (3.4-5.1); Sodium 138 mmol/L (137-145); Total Protein 7.4 g/dL (6.3-8.2)
--- NOTE | 2022-10-12 18:17 | ED.FEMALEGU ---
HPI - Female Genitourinary General Chief complaint: Urogenital-Female Stated complaint: Kidney pain Time Seen by Provider: 10/12/22 18:04 Source: patient Mode of arrival: Ambulatory History of Present Illness HPI Narrative: 32-year-old female nonsmoker with noncontributory chronic medical history presents with a chief complaint of severe right-sided flank pain off and on for the past few days. About 2 weeks ago she would presented to an outside facility with classic urine symptoms including dysuria, frequency and urgency. She had her urine tested and was found to have a UTI and was placed on 7 days of an antibiotic (she can not recall what it is but is calling her for this information). She took pills medications as directed and states that her urinary symptoms have improved but in the past few days she is been having episodes of severe right flank pain with some radiation around her side in the absence of obvious provocation or palliation. She denies systemic complaints such as fever, chills nor nausea or vomiting. She denies any vaginal bleeding or discharge. She is had no trauma or injury Related Data Previous Rx's Medication Instructions Recorded ibuprofen 600 mg tablet 600 mg PO Q6H PRN pain or cramping 11/30/20 #30 tabs lancets #100 ea 09/21/21 meclizine 25 mg tablet 25 mg PO BID PRN dizziness #14 tabs 11/30/21 ondansetron 4 mg disintegrating 4 mg PO Q8H PRN nausea and 11/30/21 tablet vomiting #14 tabs tramadol 50 mg tablet 50 mg PO Q8H PRN pain #20 tabs 02/24/22 blood sugar diagnostic (True #50 ea 09/13/22 Metrix Glucose Test Strip) blood-glucose meter (Blood Glucose #1 ea 09/13/22 Monitoring kit) omeprazole 20 mg capsule,delayed 20 mg PO DAILY #90 caps 09/13/22 release peg 3350-electrolytes 236 240 ml PO Q10M #4,000 mL 09/18/22 gram-22.74 gram-6.74 gram-5.86 gram solution (Golytely) cefpodoxime 200 mg tablet 200 mg PO BID 10 days #20 tabs 10/12/22 hydrocodone 5 mg-acetaminophen 325 1 tab PO Q4-6H PRN pain #10 tabs 10/12/22 mg tablet ketorolac 10 mg tablet 10 mg PO Q6H PRN pain #14 tabs 10/12/22 ondansetron 4 mg disintegrating 4 mg PO TID-QID PRN nausea and 10/12/22 tablet vomiting #10 tabs Allergies Allergy/AdvReac Type Severity Reaction Status Date / Time No Known Drug Allergies Allergy Unknown Verified 10/12/22 16:51 Review of Systems Review of Systems Narrative: GENERAL: See HPI HEENT: Denies sinus pain, ear pain, sore throat, difficulty swallowing, dizziness. RESPIRATORY: Denies dyspnea, cough, wheezing, hemoptysis, sputum. CARDIOVASCULAR: Denies chest pain, palpitations, orthopnea, edema, GASTROINTESTINAL: See HPI : See HPI MUSCULOSKELETAL: denies weakness, joint pain, or bony pain SKIN: Denies rash, skin lesions, or other NEUROLOGIC: Denies weakness, headache, numbness, change in speech, confusion, seizures, incoordination. PSYCHIATRIC: No concerning psychosocial issues. 12 point review of systems is negative except for those stated above Patient History Medical History Anemia (~2016) Anxiety (03/21/16) Anxiety Biliary colic Cholelithiasis Chronic headaches Dysthymia (03/21/16) Exposure to hepatitis B (~2015) Obesity (BMI 35.0-39.9 without comorbidity) Occipital neuralgia Osteomyelitis (~1999) Rh negative state in antepartum period Surgical History H/O section complicating H/O wisdom tooth extraction (~2012) History of primary section (~11/15/12) Status post delivery (12/21/16) Status post cholecystectomy (2017) Status post incision and drainage (~1999) Family History Mother Diabetes mellitus Father Myocardial infarction Sister Hypoglycemic disorder Grandmother Twins, both liveborn Grandfather Unknown whether patient has any health problems Grandmother Unknown whether patient has any health problems Grandfather Unknown whether patient has any health problems Sister Depression Anxiety Substance Use Type: does not use Exam Narrative Exam Narrative: GENERAL: [32] year old patient appears stated age. Well-developed patient, in mild distress. HEAD: Atraumatic. Normocephalic. EYES: Pupils equal round and reactive. Extraocular motions intact. No scleral icterus. No injection or drainage. ENT: Nose without bleeding, purulent drainage. Throat without erythema, tonsillar hypertrophy or exudate. Airway patent. NECK: Trachea midline. Non tender CARDIOVASCULAR: Regular rate and rhythm without murmurs, gallops, or rubs. RESPIRATORY: Clear to auscultation. Breath sounds equal bilaterally. No wheezes, rales, or rhonchi. GASTROINTESTINAL: Abdomen soft, non-tender, nondistended. EXTREMITIES: No edema or joint tenderness. BACK: Nontender without deformity or crepitance. No flank tenderness. NEURO: AOx3. SKIN: No rash or erythema of visible areas Initial Vital Signs Initial Vital Signs: Vital Signs Temperature 98.5 F 10/12/22 16:47 Pulse Rate 86 10/12/22 16:47 Respiratory Rate 18 10/12/22 16:47 Blood Pressure 128/90 10/12/22 16:47 Pulse Oximetry 100 10/12/22 16:47 Oxygen Delivery Method Room Air 10/12/22 16:47 Course Orders Ordered: ED Orders 10/12/22 17:17 Complete Blood Count AUTO DIFF Stat Comprehensive Metabolic Panel Stat Lipase Stat 10/12/22 18:42 CT kidney ureter bladder (KUB) Stat Discontinued Medications Hydrocodone Bitart/Acetaminophen (Hydrocodone/Acet 5/325 Prepack) 1 bottle MISC SEEINSTR ONE Stop: 10/12/22 20:49 Last Admin: 10/12/22 21:40 Dose: 1 bottle Documented By: DANYEL Sodium Chloride (Normal Saline 0.9%) 1,000 mls @ 1,000 mls/hr IV BOLUS ONE Stop: 10/12/22 19:41 Last Infusion: 10/12/22 20:50 Dose: 0 mls/hr Documented By: Admin: 10/12/22 18:47 Dose: 1,000 mls/hr Documented By: BARB Ketorolac Tromethamine (Ketorolac 30 Mg/Ml Vial) 15 mg IV NOW ONE Stop: 10/12/22 18:43 Last Admin: 10/12/22 18:46 Dose: 15 mg Documented By: BARB Ondansetron HCl (Ondansetron 4 Mg Odt) 4 mg PO NOW PRN PRN Reason: Nausea And Vomiting Ondansetron HCl (Ondansetron 4 Mg/2 Ml Inj) 4 mg IV NOW PRN PRN Reason: Nausea And Vomiting Ondansetron HCl (Ondansetron 4 Mg/2 Ml Inj) 4 mg IV NOW ONE Stop: 10/12/22 20:49 Last Admin: 10/12/22 21:02 Dose: 4 mg Documented By: BRIANNA Ondansetron HCl (Ondansetron 4 Mg Odt Prepack) 1 bottle MISC SEEINSTR ONE Stop: 10/12/22 20:49 Last Admin: 10/12/22 21:40 Dose: 1 bottle Documented By: DANYEL Pantoprazole Sodium (Pantoprazole 40 Mg Vial) 40 mg IV NOW ONE Stop: 10/12/22 20:49 Last Admin: 10/12/22 21:03 Dose: 40 mg Documented By: BRIANNA Vital Signs Vital signs: Vital Signs - 8 hr 10/12/22 18:10 10/12/22 18:10 10/12/22 18:30 Pulse Rate 81 Respiratory Rate 20 20 Blood Pressure 122/80 131/82 Pulse Oximetry 100 Oxygen Delivery Method Room Air 10/12/22 18:30 10/12/22 19:00 10/12/22 19:30 Pulse Rate 76 74 79 Respiratory Rate Blood Pressure Pulse Oximetry 97 99 97 Oxygen Delivery Method 10/12/22 20:00 10/12/22 20:30 10/12/22 21:00 Pulse Rate 88 80 77 Respiratory Rate Blood Pressure Pulse Oximetry 98 96 97 Oxygen Delivery Method 10/12/22 21:33 Pulse Rate 77 Respiratory Rate Blood Pressure Pulse Oximetry 99 Oxygen Delivery Method MDM - Female Genitourinary Lab Data 10/12/22 17:17 10/12/22 17:17 Labs: Lab Results 10/12/22 10/12/22 10/12/22 Range/Units 17:00 17:17 17:17 WBC 7.4 (4.5-11.0) X10^3/uL RBC 4.38 (4.0-5.2) X10^6/uL Hgb 13.0 (12.0-16.0) g/dL Hct 38.5 (36-46) % MCV 87.9 (80-100) fL MCH 29.6 (26-34) PG MCHC 33.7 (30-36) % RDW 13.4 (11.6-14.8) % Plt Count 327 (150-400) X10^3/uL Neut % (Auto) 60.5 (50-75) % Lymph % (Auto) 29.0 (25-40) % [place] % (Auto) 6.3 (3-14) % Eos % (Auto) 3.6 (2-4) % Baso % (Auto) 0.6 (0-2) % Neut # (Auto) 4500 (8832-8404) /uL Lymph # (Auto) 2100 (7016-6770) /uL [place] # (Auto) 500 (0-900) /uL Eos # (Auto) 300 (0-450) /uL Baso # (Auto) 0 (0-100) /uL Sodium 138 (137-145) mmol/L Potassium 4.3 (3.4-5.1) mmol/L Chloride 105 (98-107) mmol/L Carbon Dioxide 30 (22-32) mmol/L BUN 13 (7-17) mg/dL Creatinine 0.71 (0.52-1.04) mg/dL Estimated GFR > 60 (>60) mL/min BUN/Creatinine Ratio 18.3 (6-22) Glucose 103 H (70-100) mg/dL Calcium 8.7 (8.4-10.2) mg/dL Total Bilirubin 0.6 (0.2-1.3) mg/dL AST 21 (14-36) IU/L ALT 25 (<35) IU/L Alkaline Phosphatase 37 L (38-126) U/L Total Protein 7.4 (6.3-8.2) g/dL Albumin 4.3 (3.5-5.0) g/dL Globulin 3.1 (1.7-4.1) g/dL Albumin/Globulin Ratio 1.4 (1.0-2.8) Lipase 70 (23-300) U/L Urine RBC 30-100/hpf H (0-5/HPF) Urine WBC 1-5/hpf (0-5/HPF) Urine Bacteria Moderate (10-30) H (None) Point of Care Testing Test Results Negative Urine Dip Bedside Urine Glucose Negative Bedside Urine Bilirubin - Negative Bedside Urine Ketone - Negative Urine Specific [place] 1.025 Bedside Urine Occult Blood +++ Bedside Urine pH 6.0 Bedside Urine Protein +/- 15 Bedside Urine Urobilinogen +/- 1mg Bedside Urine Nitrite - Negative Bedside Urine Leukocytes - Negative Esterase MDM Narrative Medical decision making narrative: CC: 32-year-old female with episodic, colicky right flank pain Complicating co-morbidities: BMI 35, recent treatment of UTI (Macrobid) Data collected from: Patient Medical records reviewed: Prior notes reviewed in our EMR Differential considered, but not limited to: Pyelonephritis, kidney stone, musculoskeletal versus other Exam documented above, pertinent findings include: No significant abnormal findings, notably no CVA tenderness, right upper quadrant pain or abdominal pain Lab Test results independently reviewed as above. Pertinent findings: Urine notes hematuria and some bacteria but no classic UTI findings, no leukocytosis or left shift, no signs of anemia, electrolytes and renal function within normal, urine negative Imaging studies independently reviewed: No acute intra abdominal pathology Treatments: saline, toradol Re-evaluations: Patient feeling better, pain controlled, tolerating orals Discussion: Patient with flank pain that is largely colicky in nature with radiation around her side and hematuria noted on urine. Many elements are highly suggestive of kidney stone, however no stone was noted on imaging. She is had recent urine infection and had been on nitrofurantoin up until least a few days ago which raises the question of the possibility of ongoing urinary infection despite currently reassuring labs. No serum abnormalities. Patient without epigastric or right upper quadrant pain, lab abnormalities or imaging abnormalities to suggest pancreatitis, gallbladder disease or liver disease. Disposition: see below, along with detailed discharge instructions that have been reviewed with patient as well as indications for ED re-evaluation and additional outpatient follow up Discharge Plan Departure Patient Disposition: Home Clinical Impression: Acute flank pain Activity Restrictions/Additional Instructions: *You have been diagnosed with [acute flank pain. As we discussed your urine shows only blood, no current signs of infection and blood work as well as CT scan are reassuring and showed no kidney stones or other abnormality that would require a specific or immediate intervention.] *What to do: *Please continue to take your regular medications as directed. [ x] New medication prescriptions sent to your pharmacy: [ [facility]] [ ] New medication written as a paper prescription [ ] No new medications given *Please follow up with your primary care provider in 2-3 days, call for an appointment. Let them know you were seen in the Emergency Department and that we ask that you be seen in follow up. We will electronically transmit a record of today's note if your PCP is in our system *If you do not have a primary care provider please contact the [facility] Resource line at [phone]. They will ask some questions about your medical history and help get you set up with a doctor in the community. *Return to Emergency Department if you should have any new, worsening or concerning symptoms, such as [fever greater than 101 F, shaking chills, worsening pain, persistent vomiting or other bothersome symptoms] Prescriptions: New cefpodoxime 200 mg tablet 200 mg PO BID 10 Days Qty: 20 0RF Rx Instructions: must administer with a meal/food hydrocodone-acetaminophen 5-325 mg tablet 1 tab PO Q4-6H PRN (Reason: pain) Qty: 10 0RF ketorolac 10 mg tablet 10 mg PO Q6H PRN (Reason: pain) Qty: 14 0RF ondansetron 4 mg tablet,disintegrating 4 mg PO TID-QID PRN (Reason: nausea and vomiting) Qty: 10 0RF No Action meclizine 25 mg tablet 25 mg PO BID PRN (Reason: dizziness) Qty: 14 0RF ondansetron 4 mg tablet,disintegrating 4 mg PO Q8H PRN (Reason: nausea and vomiting) Qty: 14 0RF (DME) lancets Misc See Rx Instructions .Route Qty: 100 3RF Rx Instructions: USE 1 TO CHECK GLUCOSE TWICE DAILY OR NEEDED FOR SHAKINESS tramadol 50 mg tablet 50 mg PO Q8H PRN (Reason: pain) Qty: 20 0RF (DME) True Metrix Glucose Test Strip Strip See Rx Instructions .ROUTE .COMPLEX Qty: 50 0RF Dose Instruction: USE 1 STRIP TO CHECK GLUCOSE TWICE DAILY OR NEEDED FOR SHAKINESS. Rx Instructions: USE 1 STRIP TO CHECK GLUCOSE TWICE DAILY OR NEEDED FOR SHAKINESS. (DME) blood-glucose meter [Blood Glucose Monitoring] Kit See Rx Instructions .ROUTE .MEDSUPPLY Qty: 1 0RF Rx Instructions: check blood sugar twice a day or when shakey omeprazole 20 mg capsule,delayed release(DR/EC) 20 mg PO DAILY Qty: 90 3RF peg 3350-electrolytes [Golytely] 236-22.74-6.74 -5.86 gram recon soln 240 ml PO Q10M Qty: 4000 0RF Rx Instructions: Take as directed by Physician ibuprofen 600 mg tablet 600 mg PO Q6H PRN (Reason: pain or cramping) Qty: 30 2RF Referrals: Awais Hernadez DO [Primary Care Provider] - Stand Alone Forms: Patient Portal/API
--- NOTE | 2022-10-12 18:42 | DI.CT.S_ITS ---
PROCEDURE: CT KIDNEY URETER BLADDER (KUB) INDICATIONS: flank pain, hematuria TECHNIQUE: Axial sections were acquired from the lung bases to the pubic symphysis. Coronal and sagittal reformats were performed. For radiation dose reduction, the following was used: automated exposure control, adjustment of mA and/or kV according to patient size. COMPARISON: [facility], CT, CT ABDOMEN PELVIS W CON, 12/16/2020, 20:45. FINDINGS: Image quality: Good Lower chest: Unremarkable Solid organs: Liver is unremarkable. Gallbladder is absent. No pathologic dilation of the biliary tree or pancreatic duct. No splenomegaly. No adrenal nodules. No hydronephrosis bilaterally. No calcified stones. Vessels and lymph nodes: No abdominal aortic aneurysm or pathologic adenopathy by size criteria. Bowel and peritoneum: No evidence of small bowel obstruction. There are colonic diverticula. Normal appearance of the appendix. No pathologic ascites. Body wall: Unremarkable Pelvis: Reproductive organs are not well evaluated on CT. Consider ultrasound if there is concern for pelvic pathology. The bladder is under distended. Bones: No acute or suspicious osseous abnormality. IMPRESSION: No acute abdominal pelvic pathology identified. Other findings as above. Dictated by: Jimmie Carrion M.D. on 10/12/2022 at 19:55 Approved by: Jimmie Carrion M.D. on 10/12/2022 at 20:00
[2022-10-12] MEDS: KETOROLAC 30 MG/ML VIAL 15 MG IV (18:46)
[2022-10-12] MEDS: SODIUM CHLORIDE 0.9% 1,000 ML 1000 ML IV (18:47)
[2022-10-12] MEDS: ONDANSETRON 4 MG/2 ML INJ IV (21:02)
[2022-10-12] MEDS: PANTOPRAZOLE 40 MG VIAL IV (21:03)
[2022-10-12] MEDS: ONDANSETRON 4 MG ODT PREPACK 1 BOTTLE MISC (21:40)
[2022-10-12] MEDS: HYDROCODONE/ACET 5/325 PREPACK 1 BOTTLE MISC (21:40)
== END 2022-10-12 21:46 | disposition home or self-care (01) ==
PROVIDERS: Emergency Medicine; Emergency Provider Emergency Medicine; PCP Family Medicine
DX: R10.9 Unspecified abdominal pain (principal)
CPT/HCPCS: 36415; 74176; 80053; 81003; 81015; 81025; 83690; 85025; 87086; 96361; 96374; 96375; 99283; 99284; C9113; J1885; J2405

== ENCOUNTER 2022-12-21 08:06 | Day surgery (SDC) | payer OTHER, MEDICAID, SELFPAY ==
[2022-12-21] VITALS (16 sets, daily range): BP systolic 91–136; BP diastolic 68–96; PULSE 69–91; RESP 12–19; TEMP 35.9–37; O2SAT 95–100; BMI 38.2
--- NOTE | 2022-12-21 | PATH_ITS ---
[facility] Accession Number: [id number] No. of containers..03 Tissue . 01 Material submitted: . PART A: duodenum - DUODENAL BIOPSY PART B: stomach - ANTERAL BIOPSY PART C: ileum - TERMINAL ILEUM . 01 Diagnosis: A. Duodenum, Biopsy: Duodenal mucosa with no diagnostic abnormality. Negative for active inflammation, features of sprue, dysplasia, or malignancy. . B. Stomach, Antrum, Biopsy: Helicobacter pylori gastritis with intestinal metaplasia. Intestinal metaplasia is present in one of three fragments. Negative for dysplasia and malignancy. . C. Terminla Ileum, Biopsy: Small bowel mucosa with no diagnostic abnormality. Negative for active inflammation, dysplasia, and malignancy. [facility] 12/25/2022 1412 Local . 01 Electronically signed: . Shari Biggs MD, Pathologist NPI- [id number] . 01 Gross description: . Part A: DUODENAL BIOPSY: Received in formalin are 2 fragment(s) of tolentino, soft tissue measuring 0.3 x 0.3 x 0.2 cm to 0.1 x 0.1 x 0.1 cm submitted entirely in 1 cassette(s) Part B: ANTERAL BIOPSY: Received in formalin are 3 fragment(s) of tolentino, soft tissue measuring 0.6 x 0.3 x 0.1 cm to 0.1 x 0.1 x 0.1 cm submitted entirely in 1 cassette(s) Part C: TERMINAL ILEUM: Received in formalin is multiple fragment(s) of tolentino, soft tissue measuring 1.1 x 0.5 x 0.1 cm in aggregate submitted entirely in 12 cassette(s) /[facility] 12/22/2022 1655 Local . 01 Pathologist provided ICD-10: R10.9, B96.81 . 01 CPT . 583202, 383474, 339622 Specimen Comment: A courtesy copy of this report has been sent to [phone] Performed at: 01 [facility] [address] [place] [address] [id number] MD Golden Velazquez MD Phone: [phone]
--- NOTE | 2022-12-21 | DI.RAD.S_ITS ---
PROCEDURE: XR CHEST 1V INDICATIONS: severe abdominal pain s/p colonoscopy TECHNIQUE: One view of the chest was acquired. COMPARISON: None. FINDINGS: Surgical changes and devices: None. Lungs and pleura: Lungs are clear. No pleural effusions or pneumothorax. Mediastinum: Mediastinal contours appear normal. Heart size is normal. Bones and chest wall: No suspicious bony lesions. Overlying soft tissues appear unremarkable. IMPRESSION: No acute cardiopulmonary process. No definite pneumoperitoneum on this semi-erect film. Dictated by: Chuy Flores M.D. on 12/21/2022 at 11:14 Approved by: Chuy Flores M.D. on 12/21/2022 at 11:14
[2022-12-21] MEDS: LACTATED RINGERS 1,000 ML 42 ML IV (08:52)
--- NOTE | 2022-12-21 09:50 | PM.HP.1 ---
History of Present Illness History of Present Illness Date Patient Seen: 12/21/22 Time Patient Seen: 09:50 Chief complaint: Colonoscopy/EGD Narrative: Sharon is here for her EGD colonoscopy. She has dysphagia and abdominal pain. She denies any changes with her symptoms since September. [facility] Medical History Anemia (~2016) Anxiety (03/21/16) Anxiety Biliary colic Cholelithiasis Chronic headaches Dysthymia (03/21/16) Exposure to hepatitis B (~2015) Obesity (BMI 35.0-39.9 without comorbidity) Occipital neuralgia Osteomyelitis (~1999) Rh negative state in antepartum period Surgical History H/O section complicating H/O wisdom tooth extraction (~2012) History of primary section (~11/15/12) Status post delivery (12/21/16) Status post cholecystectomy (2016) Status post incision and drainage (~1999) Family History Mother Diabetes mellitus Father Myocardial infarction Sister Hypoglycemic disorder Grandmother Twins, both liveborn Grandfather Unknown whether patient has any health problems Grandmother Unknown whether patient has any health problems Grandfather Unknown whether patient has any health problems Sister Depression Anxiety Social History marital status: number of children: 2 household members: spouse and family lives independently: Yes caregiver/support person: No housing: house pets and animals: Yes (X dog) education level: college ([place] in [place] needs to re-do to work here in [place]) occupational status: unemployed (Homemaker ) current occupational exposures/hazards: No yamel/mormon: Sikh special yamel needs: No Smoking Status: Never smoker second hand exposure: No alcohol intake: current substance use type: does not use Meds Home Medications and Allergies Home Medications Medication Instructions Recorded Confirmed Type ibuprofen 600 mg tablet 600 mg PO Q6H PRN pain or cramping 11/30/20 12/21/22 Rx #30 tabs lancets #100 ea 09/21/21 09/18/22 Rx blood sugar diagnostic (True #50 ea 09/13/22 09/18/22 Rx Metrix Glucose Test Strip) blood-glucose meter (Blood Glucose #1 ea 09/13/22 09/18/22 Rx Monitoring kit) omeprazole 20 mg capsule,delayed 20 mg PO DAILY #90 caps 09/13/22 12/21/22 Rx release peg 3350-electrolytes 236 240 ml PO Q10M #4,000 mL 09/18/22 09/18/22 Rx gram-22.74 gram-6.74 gram-5.86 gram solution (Golytely) Allergies Allergy/AdvReac Type Severity Reaction Status Date / Time No Known Drug Allergies Allergy Unknown Verified 12/21/22 08:18 Exam Vital Signs (past 8 hours): - 12/21/22 08:21 Temperature 98.3 F Pulse Rate 81 Respiratory Rate 17 Blood Pressure 121/80 Pulse Oximetry 98 Oxygen Delivery Method Room Air Oxygen Delivery Method Room Air Const General: No acute distress Assessment & Plan Assessment and plan (1) Abdominal pain: Status: Acute Plan We reviewed the risks and benefits of EGD and colonoscopy and she would love to proceed.
[2022-12-21] MEDS: DEXTROSE 5% WATER 1,000 ML 100 ML IV (10:07)
--- NOTE | 2022-12-21 10:35 | PM.OP.EC ---
Operative Date/Time/Diagnoses Date of procedure: 12/21/22 Time of procedure: 10:35 Pre-op diagnosis: Dysphagia and abdominal pain Post-op diagnosis: same Procedure & Clinicians Study performed: EGD and colonoscopy Same procedure as scheduled: Yes Surgeon: Bipin Dennis Procedure Notes Procedure in detail: Surgeon: Bipin Dennis MD Anesthesia: Justen Steele D.O. Procedure in detail: A timeout was performed. A bite blocked was placed and monitors were attached to the patient. The patient was positioned in a left lateral decubitus position. Sedation was administered by Dr. Steele. Once the patient was sedated the endoscope was inserted through the bite block and passed through the esophagus and stomach and into the duodenum. No abnormalities were seen but random biopsies were performed from the duodenum to rule out celiac disease. We then withdrew the scope into the stomach. No abnormalities were seen. We performed random biopsies from the antrum to rule out H pylori. The endoscope was retroflexed and no hiatal hernia was seen. The endoscope was straightned and withdrawn into the esophagus. No abnormalities were seen in the esophagus. Findings: Normal EGD Next we repositioned the patient for a colonoscopy. A digital rectal exam was performed and was normal. The colonoscope was inserted and advanced to the cecum. The appendiceal orifice was identified and photographed. The terminal ileum was intubated and no abnormalities were seen. Random biopsies were taken from the terminal ileum. The scope was slowly withdrawn over greater than 6 minutes. No abnormalities were seen in the colon. The scope was retroflexed in the rectum and mild internal hemorrhoids were noted. Findings: Normal colon, mild internal hemorrhoids EBL: 2 mL Scope withdrawal time: 9 minutes Sedation minutes: 24 minutes Post-procedure Disposition: PACU
[2022-12-21] MEDS: ONDANSETRON 4 MG/2 ML INJ IV (10:55)
[2022-12-21] MEDS: fentaNYL 100 MCG/2 ML INJ 50 MCG IV (11:02)
--- NOTE | 2022-12-21 11:17 | SUR.PHASEI ---
Addendum entered by Char Lopez R.N. 12/21/22 13:30: 1207 addendum - Patient's abdomen soft, but slight firmness noted below umbilicus. Dr. Odonnell made aware of this when at bedside. Addendum entered by Char Lopez R.N. 12/21/22 12:26: Patient assisted to bathroom per request. Continued to have pain throughout, but able to walk to bathroom and void with assistance. Assisted back to bed. Vital signs remain stable, but states pain is not any better. Given ice pack for abdomen and encouraged to take deep breathing. Reported off to REYES Carbone. Patient resting peacefully with eyes closed and even, unlabored breathing. Addendum entered by Char Lopez R.N. 12/21/22 12:07: Dr. Odonnell updated again regarding continued lower abdominal pain. Came to bedside; gave order for fentanyl, no additional orders at this time. Addendum entered by Char Lopez R.N. 12/21/22 11:33: Dr. Odonnell noted no free air on x-ray. Inquired about additional pain medications for patient, no new orders received. Ice pack applied to lower abdomen per patient request. States pain is burning at my belly button. Encouraged patient to attempt to pass gas, but stated she is unable to. Patient more calm than before, but continues to wince, hold abdomen, and state pain is 8/10 when asked. Original Note: Patient woke up and began retching and complaining of burning to abdomen. Received order for zofran from anesthesiologist. Patient had decreased nausea, but continued to complain of really bad burning to abdomen and continued to writhe in bed. Abdomen soft. Dr. Odonnell notified and gave orders for fentanyl and x-ray. X-ray completed and Dr. Odonnell visualized x-ray.
[2022-12-21] MEDS: fentaNYL 100 MCG/2 ML INJ 25 MCG IV (12:04)
--- NOTE | 2022-12-21 13:15 | DI.CT.S_ITS ---
PROCEDURE: CT ABDOMEN PELVIS W CON INDICATIONS: segun-umbilical pain TECHNIQUE: After the administration of intravenous contrast, axial sections acquired from the lung bases to the pubic symphysis. Coronal and sagittal reformats were performed. For radiation dose reduction, the following was used: automated exposure control, adjustment of mA and/or kV according to patient size. COMPARISON: [facility], CT, CT ABDOMEN PELVIS W CON, 12/16/2020, 20:45. FINDINGS: Image quality: Excellent. Lung bases: Unremarkable. Heart: No significant findings. ABDOMEN: Liver: Unremarkable. Gallbladder: Absent Biliary ducts: Trace pneumobilia, likely indicating prior sphincterotomy. Pancreas: Unremarkable. Spleen: Unremarkable. Adrenal Glands: Unremarkable. Kidneys and Ureters: Unremarkable. Stomach and Bowel: Stomach, small bowel loops, and colon are unremarkable. Normal appendix. Peritoneum: No abnormal intraperitoneal fluid. No free air. Ventral Wall: No hernias. Abdominal Nodes: No retroperitoneal or mesenteric adenopathy by size criteria. Vessels: Aorta and inferior vena cava are normal in size. PELVIS: Pelvic Organs: Right-sided corpus luteum. Bladder: Unremarkable. Pelvic Nodes: No enlarged lymph nodes. Miscellaneous: No hernias are seen. Bones: Mild bilateral sacroiliitis. IMPRESSION: No findings to explain the patient's severe periumbilical pain. No evidence of perforation. Mild bilateral sacroiliitis, which does have association with multiple disease processes including inflammatory bowel disease. Dictated by: Chuy Flores M.D. on 12/21/2022 at 13:55 Approved by: Chuy Flores M.D. on 12/21/2022 at 13:59
[2022-12-21] MEDS: ACETAMINOPHEN 325 MG TABLET 975 MG PO (13:22)
--- NOTE | 2022-12-21 13:28 | SUR.PHASEII ---
abdominal pain: Patient continues to have abdominal pain below umbilicus rated at 5/10 described as burning pain. Patient ambulated around unit. Verbalizes that abdomen feels better when lying down or standing, but excruciating in sitting position. vss. Nausea gone and was able to eat pudding and crackers without difficulty. Notified Anesthesia and Dr. Dennis of findings. Received order for PO tylenol from Dr. Steele, Anesthesia and Dr. Dennis came to bedside to assess abdominal pain. Received order for CT of abdomen. Patient transferred to CT.
--- NOTE | 2022-12-21 13:37 | SUR.PHASEII ---
Return from CT scan Patient returned CT scan. Ambulated to bathroom with standby assistance. Pain still 5/10 and is grimacing when walking, but verbalizes that pain is tolerable at this time. Awaiting results of CT scan.
--- NOTE | 2022-12-21 14:29 | SUR.PHASEII ---
1420 Dr. Dennis at bedside. CT negative. Pain to abdomen now rated at 2/10. vss. Discharging patient at this time.
== END 2022-12-21 14:25 | disposition home or self-care (01) ==
PROVIDERS: PCP Family Medicine; Referring Provider Surgery; Visit Provider Surgery
PROC: 0DJD8ZZ Inspection of Lower Intestinal Tract, Via Natural or Artificial Opening Endoscopic (ICD-10-PCS; CPT 45378; principal; 2022-12-21 09:30)
PROC: 0DJ08ZZ Inspection of Upper Intestinal Tract, Via Natural or Artificial Opening Endoscopic (ICD-10-PCS; CPT 43235; 2022-12-21 09:30)
DX: R10.9 Unspecified abdominal pain (principal); R13.10 Dysphagia, unspecified; K64.8 Other hemorrhoids
CPT/HCPCS: 45378; 43235; 71045; 74177; 82962; J2405; J2704; J3010; Q9967

== ENCOUNTER → 2023-02-02 12:22 | Outpatient (CLI) | payer OTHER, MEDICAID, SELFPAY ==
[2023-02-05 07:19] LABS: Interpretation Negative (Negative)
== END ==
PROVIDERS: PCP Family Medicine; Referring Provider Surgery; Visit Provider Surgery
DX: A04.8 Other specified bacterial intestinal infections (principal)
CPT/HCPCS: 83013

== ENCOUNTER 2023-04-04 11:13 | Emergency (ER) | payer OTHER, MEDICAID, SELFPAY ==
[2023-04-04] VITALS (8 sets, daily range): BP systolic 126–142; BP diastolic 80–90; PULSE 90–110; RESP 16; TEMP 36.8; O2SAT 96–99; BMI 38.2
[2023-04-04 11:45] LABS: Add Manual Diff / Slide Review NO; Basophils Absolute Auto 0 /uL (0-100); Basophils Percent Auto 0.2 % (0-2); Eosinophils Absolute Auto 0 /uL (0-450); Eosinophils Percent Auto 0.3 % (2-4); Hematocrit 37.4 % (36-46); Hemoglobin 12.6 g/dL (12.0-16.0); Lymphocytes Absolute Auto 1300 /uL (1100-4500); Lymphocytes Percent Auto 13.1 % (25-40); Mean Corpuscular HGB Conc 33.7 % (30-36); Mean Corpuscular Hemoglobin 29.3 PG (26-34); Monocytes Absolute Auto 700 /uL (0-900); Monocytes Percent Auto 6.7 % (3-14); Neutrophils Absolute Auto 7900 /uL (1500-7000); Neutrophils Percent Auto 79.7 % (50-75); Platelet Count 257 X10^3/uL (150-400); Red Blood Cell Count 4.29 X10^6/uL (4.0-5.2); Red Cell Distribution Width 13.6 % (11.6-14.8); White Blood Cell Count 9.9 X10^3/uL (4.5-11.0)
[2023-04-04 11:51] LABS: Bacteria Urine Few (2-10); RBC Urine 1-5/HPF (0-5/HPF); Squamous Epithelial Cell Urine 1-5 /HPF (0-5/HPF); WBC Urine 0-1/HPF (0-5/HPF)
[2023-04-04 11:52] LABS: Culture Indicated Urine Cult Not Indicated
[2023-04-04 11:56] LABS: Alanine Aminotransferase 31 IU/L (<35); Albumin Globulin Ratio 1.2 (1.0-2.8); Alkaline Phosphatase 29 U/L (38-126); Aspartate Aminotransferase 33 IU/L (14-36); BUN Creatinine Ratio 8.7 (6-22); Blood Urea Nitrogen 6 mg/dL (7-17); Calcium 8.5 mg/dL (8.4-10.2); Carbon Dioxide 28 mmol/L (22-32); Chloride 99 mmol/L (98-107); Estimated Glomerular Filt Rate > 60 mL/min (>60); Globulin 3.4 g/dL (1.7-4.1); Glucose 120 mg/dL (70-100); HEMOLYSIS < 15 (0-50); Lipase 44 U/L (23-300); Potassium 3.8 mmol/L (3.4-5.1); Sodium 136 mmol/L (137-145); Total Protein 7.4 g/dL (6.3-8.2)
[2023-04-04] MEDS: ONDANSETRON 4 MG/2 ML INJ IV (12:24)
[2023-04-04] MEDS: MORPHINE 2 MG/ML INJ IV (12:25)
[2023-04-04] MEDS: SODIUM CHLORIDE 0.9% 500 ML 1000 ML IV (12:26)
--- NOTE | 2023-04-04 12:33 | DI.CT.S_ITS ---
PROCEDURE: CT ABDOMEN PELVIS W CON INDICATIONS: abdominal pain with fever TECHNIQUE: After the administration of intravenous contrast, axial sections acquired from the lung bases to the pubic symphysis. Coronal and sagittal reformats were performed. For radiation dose reduction, the following was used: automated exposure control, adjustment of mA and/or kV according to patient size. COMPARISON: [facility], CT, CT ABDOMEN PELVIS W CON, 12/21/2022, 13:31. FINDINGS: Image quality: Excellent. Lung bases: Unremarkable. Heart: No significant findings. ABDOMEN: Liver: Unremarkable. Gallbladder: Surgically absent Biliary ducts: Unremarkable. Pancreas: Unremarkable. Spleen: Unremarkable. Adrenal Glands: Unremarkable. Kidneys and Ureters: Unremarkable. Stomach and Bowel: Impressive right colonic wall edema and thickening with inflammatory change in the adjacent fat. Less pronounced changes in the proximal to mid transverse colon. Descending colon is decompressed with questionable thickening. Sigmoid and rectum appear decompressed and likely within normal limits. Peritoneum: No abnormal intraperitoneal fluid. No free air. Ventral Wall: No hernias. Abdominal Nodes: No retroperitoneal or mesenteric adenopathy by size criteria. Vessels: Aorta and inferior vena cava are normal in size. PELVIS: Pelvic Organs: Unremarkable. Bladder: Unremarkable. Pelvic Nodes: No enlarged lymph nodes. Miscellaneous: No hernias are seen. Bones: Unremarkable. IMPRESSION: Changes of colitis, most significant in the right colon, where it is impressive, with associated subjacent inflammatory change. Consider infectious versus inflammatory colitis. Dictated by: Kam Pennington M.D. on 04/04/2023 at 13:28 Approved by: Kam Pennington M.D. on 04/04/2023 at 13:31
--- NOTE | 2023-04-04 12:36 | ED.ABDPAIN ---
HPI - Abdominal Pain <Shannan Rock PA-C - Last Filed: 04/04/23 14:44> General Chief Complaint: Abdominal Pain Stated Complaint: suresh staley Time Seen by Provider: 04/04/23 11:30 Source: patient Mode of arrival: Ambulatory History of Present Illness HPI narrative: Patient is a 32-year-old female who presents with acute on chronic abdominal pain. She is a history of periumbilical pain that she is been seen for in the emergency department, she had H pylori on endoscopy and was treated, with a test of cure. She went to [place] last week for vacation and notes she ate some bad food and had stomachache and diarrhea afterwards. Her ate the same food and did not get sick. This lasted 2 days, then she felt fine and returned home. She then developed abdominal pain and fever and chills 2 and half days ago. She reports fever up to 102? at home for which she is been taking Tylenol and ibuprofen. In the last 24 hours, she is had 3 episodes of watery stools without any blood, frequent nausea and occasional vomiting. She reports the pain is somewhat intermittent but when it occurs it is very severe, burning periumbilical pain. She denies any recent antibiotic use. She has a history of cholecystectomy and x3. She is diabetic. Related Data Previous Rx's Medication Instructions Recorded ibuprofen 600 mg tablet 600 mg PO Q6H PRN pain or cramping 11/30/20 #30 tabs lancets #100 ea 09/21/21 blood-glucose meter (Blood Glucose #1 ea 09/13/22 Monitoring kit) omeprazole 20 mg capsule,delayed 20 mg PO DAILY #90 caps 09/13/22 release amoxicillin 500 mg tablet 500 mg PO Q12H #28 tabs 12/28/22 clarithromycin 500 mg tablet 500 mg PO Q12H #28 tabs 12/28/22 blood sugar diagnostic (True #50 ea 01/02/23 Metrix Glucose Test Strip) ciprofloxacin HCl 500 mg tablet 500 mg PO Q12H 3 days #6 tabs 04/04/23 hyoscyamine sulfate 0.125 mg tablet 0.125 mg PO QID PRN dyspepsia #7 04/04/23 tabs ondansetron 4 mg disintegrating 4 mg PO Q8H PRN nausea and 04/04/23 tablet vomiting #10 tabs Allergies Allergy/AdvReac Type Severity Reaction Status Date / Time No Known Drug Allergies Allergy Unknown Verified 12/29/22 11:29 Review of Systems <Shannan Rock PA-C - Last Filed: 04/04/23 14:44> Review of Systems ROS Unobtainable: All systems reviewed & are unremarkable except as noted in HPI and below Patient History <Shannan Rock PA-C - Last Filed: 04/04/23 14:44> Medical History Anemia (~2016) Anxiety (03/21/16) Anxiety Biliary colic Cholelithiasis Chronic headaches Dysthymia (03/21/16) Exposure to hepatitis B (~2015) Obesity (BMI 35.0-39.9 without comorbidity) Occipital neuralgia Osteomyelitis (~1999) Rh negative state in antepartum period Surgical History H/O section complicating H/O wisdom tooth extraction (~2012) History of primary section (~11/15/12) Status post delivery (12/21/16) Status post cholecystectomy (2016) Status post incision and drainage (~1999) Family History Mother Diabetes mellitus Father Myocardial infarction Sister Hypoglycemic disorder Grandmother Twins, both liveborn Grandfather Unknown whether patient has any health problems Grandmother Unknown whether patient has any health problems Grandfather Unknown whether patient has any health problems Sister Depression Anxiety Social History marital status: number of children: 2 household members: spouse and family lives independently: Yes caregiver/support person: No housing: house pets and animals: Yes (X dog) education level: college (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 Well-developed patient, in moderate distress. NEURO: AOx3. HEAD: Atraumatic. Normocephalic. EYES: Pupils equal round and reactive. Extraocular motions intact. No scleral icterus. No injection or drainage. ENT: Nose without bleeding or purulent drainage. CARDIOVASCULAR: Regular rate and rhythm without murmurs, gallops, or rubs. RESPIRATORY: Clear to auscultation. Breath sounds equal bilaterally. No wheezes, rales, or rhonchi. GASTROINTESTINAL: Abdomen soft, quite tender over right upper, right lower and periumbilical regions. Minimal left-sided tenderness. EXTREMITIES: No edema or joint tenderness. SKIN: No rash or erythema of visible areas Initial Vital Signs Initial Vital Signs: Vital Signs Temperature 98.3 F 04/04/23 11:17 Pulse Rate 110 H 04/04/23 11:17 Respiratory Rate 16 04/04/23 11:17 Blood Pressure 142/90 H 04/04/23 11:17 Pulse Oximetry 98 04/04/23 11:17 Oxygen Delivery Method Room Air 04/04/23 11:17 <Jey Serrano DO - Last Filed: 04/04/23 15:13> Initial Vital Signs Initial Vital Signs: Vital Signs Temperature 98.3 F 04/04/23 11:17 Pulse Rate 110 H 04/04/23 11:17 Respiratory Rate 16 04/04/23 11:17 Blood Pressure 142/90 H 04/04/23 11:17 Pulse Oximetry 98 04/04/23 11:17 Oxygen Delivery Method Room Air 04/04/23 11:17 Course <Shannan Rock PA-C - Last Filed: 04/04/23 14:44> Orders Ordered: ED Orders 04/04/23 11:25 Urine Microscopic Stat 04/04/23 11:38 Complete Blood Count AUTO DIFF Stat Comprehensive Metabolic Panel Stat Lipase Stat 04/04/23 12:25 Ammonia (NH3) Stat 04/04/23 12:33 CT abdomen pelvis w con Stat Discontinued Medications Hydromorphone HCl (Hydromorphone 0.5 Mg Inj) 0.5 mg IV NOW ONE Stop: 04/04/23 13:35 Last Admin: 04/04/23 13:44 Dose: 0.5 mg Documented By: ELZBIETA Hyoscyamine (Hyoscyamine 0.125 Mg Tablet) 0.125 mg PO NOW ONE Stop: 04/04/23 14:39 Last Admin: 04/04/23 14:43 Dose: 0.125 mg Documented By: ELZBIETA Sodium Chloride (Normal Saline 0.9%) 500 mls @ 1,000 mls/hr IV BOLUS ONE Stop: 04/04/23 12:33 Last Infusion: 04/04/23 13:04 Dose: 0 mls/hr Documented By: Admin: 04/04/23 12:26 Dose: 1,000 mls/hr Documented By: LAINE Metoclopramide HCl (Metoclopramide 10 Mg/2 Ml Inj) 10 mg IV NOW ONE Stop: 04/04/23 13:35 Last Admin: 04/04/23 13:44 Dose: 10 mg Documented By: ELZBIETA Morphine Sulfate (Morphine 2 Mg/Ml Inj) 2 mg IV NOW ONE Stop: 04/04/23 12:05 Last Admin: 04/04/23 12:25 Dose: 2 mg Documented By: LAINE Ondansetron HCl (Ondansetron 4 Mg Odt) 4 mg PO NOW PRN PRN Reason: Nausea And Vomiting Ondansetron HCl (Ondansetron 4 Mg/2 Ml Inj) 4 mg IV NOW PRN PRN Reason: Nausea And Vomiting Last Admin: 04/04/23 12:24 Dose: 4 mg Documented By: LAINE Vital Signs Vital signs: Vital Signs - 8 hr 04/04/23 11:17 04/04/23 11:51 04/04/23 12:00 Temperature 98.3 F Pulse Rate 110 H 100 H Respiratory Rate 16 Blood Pressure 142/90 H 126/80 Pulse Oximetry 98 96 Oxygen Delivery Method Room Air 04/04/23 12:00 04/04/23 12:30 04/04/23 13:00 Temperature Pulse Rate 101 H 100 H 90 Respiratory Rate Blood Pressure Pulse Oximetry 99 97 99 Oxygen Delivery Method 04/04/23 13:45 04/04/23 14:00 04/04/23 14:48 Temperature Pulse Rate 95 H 93 H 92 H Respiratory Rate Blood Pressure Pulse Oximetry 99 97 99 Oxygen Delivery Method <Jey Serrano DO - Last Filed: 04/04/23 15:13> Orders Ordered: ED Orders 04/04/23 11:25 Urine Microscopic Stat 04/04/23 11:38 Complete Blood Count AUTO DIFF Stat Comprehensive Metabolic Panel Stat Lipase Stat 04/04/23 12:25 Ammonia (NH3) Stat 04/04/23 12:33 CT abdomen pelvis w con Stat Discontinued Medications Hydromorphone HCl (Hydromorphone 0.5 Mg Inj) 0.5 mg IV NOW ONE Stop: 04/04/23 13:35 Last Admin: 04/04/23 13:44 Dose: 0.5 mg Documented By: NR Hyoscyamine (Hyoscyamine 0.125 Mg Tablet) 0.125 mg PO NOW ONE Stop: 04/04/23 14:39 Last Admin: 04/04/23 14:43 Dose: 0.125 mg Documented By: ELZBIETA Sodium Chloride (Normal Saline 0.9%) 500 mls @ 1,000 mls/hr IV BOLUS ONE Stop: 04/04/23 12:33 Last Infusion: 04/04/23 13:04 Dose: 0 mls/hr Documented By: Admin: 04/04/23 12:26 Dose: 1,000 mls/hr Documented By: LAINE Metoclopramide HCl (Metoclopramide 10 Mg/2 Ml Inj) 10 mg IV NOW ONE Stop: 04/04/23 13:35 Last Admin: 04/04/23 13:44 Dose: 10 mg Documented By: ELZBIETA Morphine Sulfate (Morphine 2 Mg/Ml Inj) 2 mg IV NOW ONE Stop: 04/04/23 12:05 Last Admin: 04/04/23 12:25 Dose: 2 mg Documented By: LAINE Ondansetron HCl (Ondansetron 4 Mg Odt) 4 mg PO NOW PRN PRN Reason: Nausea And Vomiting Ondansetron HCl (Ondansetron 4 Mg/2 Ml Inj) 4 mg IV NOW PRN PRN Reason: Nausea And Vomiting Last Admin: 04/04/23 12:24 Dose: 4 mg Documented By: LAINE Vital Signs Vital signs: Vital Signs - 8 hr 04/04/23 11:17 04/04/23 11:51 04/04/23 12:00 Temperature 98.3 F Pulse Rate 110 H 100 H Respiratory Rate 16 Blood Pressure 142/90 H 126/80 Pulse Oximetry 98 96 Oxygen Delivery Method Room Air 04/04/23 12:00 04/04/23 12:30 04/04/23 13:00 Temperature Pulse Rate 101 H 100 H 90 Respiratory Rate Blood Pressure Pulse Oximetry 99 97 99 Oxygen Delivery Method 04/04/23 13:45 04/04/23 14:00 04/04/23 14:48 Temperature Pulse Rate 95 H 93 H 92 H Respiratory Rate Blood Pressure Pulse Oximetry 99 97 99 Oxygen Delivery Method MDM - Abdominal Pain <Shannan Rock PA-C - Last Filed: 04/04/23 14:44> Lab Data 04/04/23 11:38 04/04/23 11:38 Labs: Lab Results 04/04/23 04/04/23 04/04/23 Range/Units 11:25 11:38 11:38 WBC 9.9 (4.5-11.0) X10^3/uL RBC 4.29 (4.0-5.2) X10^6/uL Hgb 12.6 (12.0-16.0) g/dL Hct 37.4 (36-46) % MCV 87.0 (80-100) fL MCH 29.3 (26-34) PG MCHC 33.7 (30-36) % RDW 13.6 (11.6-14.8) % Plt Count 257 (150-400) X10^3/uL Neut % (Auto) 79.7 H (50-75) % Lymph % (Auto) 13.1 L (25-40) % [place] % (Auto) 6.7 (3-14) % Eos % (Auto) 0.3 L (2-4) % Baso % (Auto) 0.2 (0-2) % Neut # (Auto) 7900 H (5772-7163) /uL Lymph # (Auto) 1300 (9131-4990) /uL [place] # (Auto) 700 (0-900) /uL Eos # (Auto) 0 (0-450) /uL Baso # (Auto) 0 (0-100) /uL Sodium 136 L (137-145) mmol/L Potassium 3.8 (3.4-5.1) mmol/L Chloride 99 (98-107) mmol/L Carbon Dioxide 28 (22-32) mmol/L BUN 6 L (7-17) mg/dL Creatinine 0.69 (0.52-1.04) mg/dL Estimated GFR > 60 (>60) mL/min BUN/Creatinine Ratio 8.7 (6-22) Glucose 120 H (70-100) mg/dL Calcium 8.5 (8.4-10.2) mg/dL Total Bilirubin 1.0 (0.2-1.3) mg/dL AST 33 (14-36) IU/L ALT 31 (<35) IU/L Alkaline Phosphatase 29 L (38-126) U/L Ammonia (9-30) umol/L Total Protein 7.4 (6.3-8.2) g/dL Albumin 4.0 (3.5-5.0) g/dL Globulin 3.4 (1.7-4.1) g/dL Albumin/Globulin Ratio 1.2 (1.0-2.8) Lipase 44 (23-300) U/L Urine RBC 1-5/hpf D (0-5/HPF) Urine WBC 0-1/hpf (0-5/HPF) Ur Squamous Epith Cells 1-5 /hpf (0-5/HPF) Urine Bacteria Few (2-10) H (None) Ur Culture Indicated? Cult not indicated 04/04/23 Range/Units 12:25 WBC (4.5-11.0) X10^3/uL RBC (4.0-5.2) X10^6/uL Hgb (12.0-16.0) g/dL Hct (36-46) % MCV (80-100) fL MCH (26-34) PG MCHC (30-36) % RDW (11.6-14.8) % Plt Count (150-400) X10^3/uL Neut % (Auto) (50-75) % Lymph % (Auto) (25-40) % Ventura % (Auto) (3-14) % Eos % (Auto) (2-4) % Baso % (Auto) (0-2) % Neut # (Auto) (3886-0710) /uL Lymph # (Auto) (0085-6877) /uL [place] # (Auto) (0-900) /uL Eos # (Auto) (0-450) /uL Baso # (Auto) (0-100) /uL Sodium (137-145) mmol/L Potassium (3.4-5.1) mmol/L Chloride (98-107) mmol/L Carbon Dioxide (22-32) mmol/L BUN (7-17) mg/dL Creatinine (0.52-1.04) mg/dL Estimated GFR (>60) mL/min BUN/Creatinine Ratio (6-22) Glucose (70-100) mg/dL Calcium (8.4-10.2) mg/dL Total Bilirubin (0.2-1.3) mg/dL AST (14-36) IU/L ALT (<35) IU/L Alkaline Phosphatase (38-126) U/L Ammonia < 9 L (9-30) umol/L Total Protein (6.3-8.2) g/dL Albumin (3.5-5.0) g/dL Globulin (1.7-4.1) g/dL Albumin/Globulin Ratio (1.0-2.8) Lipase (23-300) U/L Urine RBC (0-5/HPF) Urine WBC (0-5/HPF) Ur Squamous Epith Cells (0-5/HPF) Urine Bacteria (None) Ur Culture Indicated? Point of care testing: Point of Care Testing Test Results Negative Urine Dip Bedside Urine Glucose Negative Bedside Urine Bilirubin - Negative Bedside Urine Ketone - Negative Urine Specific Partlow 1.010 Bedside Urine Occult Blood +/- Bedside Urine pH 6.5 Bedside Urine Protein - Negative Bedside Urine Urobilinogen - Negative Bedside Urine Nitrite - Negative Bedside Urine Leukocytes - Negative Esterase Imaging Data CT scan - abdomen/pelvis: My Impression: Due to technological issue, unable to paste CT read in chart. From printed note, changes of colitis, most significant in the right colon, where it is impressive, with associated subadjacent inflammatory change. Consider infectious versus inflammatory colitis. MDM Narrative Medical decision making narrative: Multiple etiologies for patient's symptoms considered including, but not limited to: Appendicitis, colitis, traveler's diarrhea. Labs show WBC 9k with increased lymphocytes, chemistry without clinically significant abnormalities, urine without evidence of UTI. Will obtain CT abdomen pelvis to evaluate further. Pain controlled with IV pain medications and nausea medications while in ER. CT without evidence of appendicitis, but shows shows significant right colonic colitis, likely traveler's diarrhea given history, but can not exclude underlying inflammatory bowel disease. Discussed with Dr. Serrano. We will treat with ciprofloxacin, and prescribe ondansetron and hyoscyamine for symptom control. Although patient initially tachycardic, low suspicion for sepsis after further evaluation. Patient's symptoms improved over duration of stay with above-stated therapies. Findings and discharge diagnosis discussed with patient/family followed by verbalization of understanding Return precautions discussed with patient/family whom verbalize understanding of diagnosis and plan <Jey Serrano, DO - Last Filed: 04/04/23 15:13> Lab Data Labs: Lab Results 04/04/23 04/04/23 04/04/23 Range/Units 11:25 11:38 11:38 WBC 9.9 (4.5-11.0) X10^3/uL RBC 4.29 (4.0-5.2) X10^6/uL Hgb 12.6 (12.0-16.0) g/dL Hct 37.4 (36-46) % MCV 87.0 (80-100) fL MCH 29.3 (26-34) PG MCHC 33.7 (30-36) % RDW 13.6 (11.6-14.8) % Plt Count 257 (150-400) X10^3/uL Neut % (Auto) 79.7 H (50-75) % Lymph % (Auto) 13.1 L (25-40) % Ventura % (Auto) 6.7 (3-14) % Eos % (Auto) 0.3 L (2-4) % Baso % (Auto) 0.2 (0-2) % Neut # (Auto) 7900 H (3372-0477) /uL Lymph # (Auto) 1300 (6292-3323) /uL [place] # (Auto) 700 (0-900) /uL Eos # (Auto) 0 (0-450) /uL Baso # (Auto) 0 (0-100) /uL Sodium 136 L (137-145) mmol/L Potassium 3.8 (3.4-5.1) mmol/L Chloride 99 (98-107) mmol/L Carbon Dioxide 28 (22-32) mmol/L BUN 6 L (7-17) mg/dL Creatinine 0.69 (0.52-1.04) mg/dL Estimated GFR > 60 (>60) mL/min BUN/Creatinine Ratio 8.7 (6-22) Glucose 120 H (70-100) mg/dL Calcium 8.5 (8.4-10.2) mg/dL Total Bilirubin 1.0 (0.2-1.3) mg/dL AST 33 (14-36) IU/L ALT 31 (<35) IU/L Alkaline Phosphatase 29 L (38-126) U/L Ammonia (9-30) umol/L Total Protein 7.4 (6.3-8.2) g/dL Albumin 4.0 (3.5-5.0) g/dL Globulin 3.4 (1.7-4.1) g/dL Albumin/Globulin Ratio 1.2 (1.0-2.8) Lipase 44 (23-300) U/L Urine RBC 1-5/hpf D (0-5/HPF) Urine WBC 0-1/hpf (0-5/HPF) Ur Squamous Epith Cells 1-5 /hpf (0-5/HPF) Urine Bacteria Few (2-10) H (None) Ur Culture Indicated? Cult not indicated 04/04/23 Range/Units 12:25 WBC (4.5-11.0) X10^3/uL RBC (4.0-5.2) X10^6/uL Hgb (12.0-16.0) g/dL Hct (36-46) % MCV (80-100) fL MCH (26-34) PG MCHC (30-36) % RDW (11.6-14.8) % Plt Count (150-400) X10^3/uL Neut % (Auto) (50-75) % Lymph % (Auto) (25-40) % Ventura % (Auto) (3-14) % Eos % (Auto) (2-4) % Baso % (Auto) (0-2) % Neut # (Auto) (7752-2055) /uL Lymph # (Auto) (5346-4754) /uL [place] # (Auto) (0-900) /uL Eos # (Auto) (0-450) /uL Baso # (Auto) (0-100) /uL Sodium (137-145) mmol/L Potassium (3.4-5.1) mmol/L Chloride (98-107) mmol/L Carbon Dioxide (22-32) mmol/L BUN (7-17) mg/dL Creatinine (0.52-1.04) mg/dL Estimated GFR (>60) mL/min BUN/Creatinine Ratio (6-22) Glucose (70-100) mg/dL Calcium (8.4-10.2) mg/dL Total Bilirubin (0.2-1.3) mg/dL AST (14-36) IU/L ALT (<35) IU/L Alkaline Phosphatase (38-126) U/L Ammonia < 9 L (9-30) umol/L Total Protein (6.3-8.2) g/dL Albumin (3.5-5.0) g/dL Globulin (1.7-4.1) g/dL Albumin/Globulin Ratio (1.0-2.8) Lipase (23-300) U/L Urine RBC (0-5/HPF) Urine WBC (0-5/HPF) Ur Squamous Epith Cells (0-5/HPF) Urine Bacteria (None) Ur Culture Indicated? Point of care testing: Point of Care Testing Test Results Negative Urine Dip Bedside Urine Glucose Negative Bedside Urine Bilirubin - Negative Bedside Urine Ketone - Negative Urine Specific Partlow 1.010 Bedside Urine Occult Blood +/- Bedside Urine pH 6.5 Bedside Urine Protein - Negative Bedside Urine Urobilinogen - Negative Bedside Urine Nitrite - Negative Bedside Urine Leukocytes - Negative Esterase Discharge Plan Departure Patient Disposition: Home Clinical Impression: Traveler's diarrhea Instructions: DI for Diarrhea and Traveler's Diarrhea -- Adult Activity Restrictions/Additional Instructions: *You have been diagnosed with traveler's diarrhea. I will send prescriptions for antibiotics, nausea medicine, abdominal cramping medicine to your pharmacy. I advise you to drink lots of water, rest and very slowly advance her diet from clear liquids to bland food. I expect that you will be feeling better after 48 hours of antibiotics but it may take quite a while for your abdominal pain to completely resolve given that there is a lot of inflammation on your CT scan. If you continued to have abdominal pain after recovering from this illness, I recommend talking to your primary care doctor about getting a colonoscopy to evaluate for inflammatory bowel disease. *What to do: *Please continue to take your regular medications as directed. [x ] New medication prescriptions sent to your pharmacy: [[facility]] [ ] New medication written as a paper prescription [ ] No new medications given *Please follow up with your primary care provider in 2-3 days, call for an appointment. Let them know you were seen in the Emergency Department and that we ask that you be seen in follow up. We will electronically transmit a record of today's note if your PCP is in our system *If you do not have a primary care provider please contact the [facility] Resource line at [phone]. They will ask some questions about your medical history and help get you set up with a doctor in the community. *Return to Emergency Department if you should have any new, worsening or concerning symptoms, such as [fever greater than 101 F, shaking chills, worsening pain, persistent vomiting or other concerning symptoms]. Prescriptions: New ciprofloxacin HCl 500 mg tablet 500 mg PO Q12H 3 Days Qty: 6 0RF ondansetron 4 mg tablet,disintegrating 4 mg PO Q8H PRN (Reason: nausea and vomiting) Qty: 10 0RF hyoscyamine sulfate 0.125 mg tablet 0.125 mg PO QID PRN (Reason: dyspepsia) Qty: 7 0RF No Action (DME) lancets Misc See Rx Instructions .Route Qty: 100 3RF Rx Instructions: USE 1 TO CHECK GLUCOSE TWICE DAILY OR NEEDED FOR SHAKINESS clarithromycin 500 mg tablet 500 mg PO Q12H Qty: 28 0RF amoxicillin 500 mg tablet 500 mg PO Q12H Qty: 28 0RF (DME) True Metrix Glucose Test Strip Strip See Rx Instructions .ROUTE .COMPLEX Qty: 50 11RF Dose Instruction: USE 1 STRIP TO CHECK GLUCOSE TWICE DAILY OR NEEDED FOR SHAKINESS. Rx Instructions: USE 1 STRIP TO CHECK GLUCOSE TWICE DAILY OR NEEDED FOR SHAKINESS. (DME) blood-glucose meter [Blood Glucose Monitoring] Kit See Rx Instructions .ROUTE .MEDSUPPLY Qty: 1 0RF Rx Instructions: check blood sugar twice a day or when shakey omeprazole 20 mg capsule,delayed release(DR/EC) 20 mg PO DAILY Qty: 90 3RF ibuprofen 600 mg tablet 600 mg PO Q6H PRN (Reason: pain or cramping) Qty: 30 2RF Referrals: Awais Hernadez DO [Primary Care Provider] - Stand Alone Forms: Patient Portal/API <Jey Serrano DO - Last Filed: 08/30/23 15:13> Cosign ED Attending Cosignature Attestation: Dr Serrano Co-Sign Statement: I was available for consultation during this patient's emergency department visit. This chart is signed by myself for administrative purposes only. I did not have direct contact with this patient during this visit. They were seen independently by the APC.
[2023-04-04 12:44] LABS: Ammonia (NH3) < 9 umol/L (9-30)
--- NOTE | 2023-04-04 13:36 | PC.NURSE ---
reported to provider, patient states the pain medicine did not help her, it made her body feel all numb but yet did not help with the pain. she is also feeling nauseated, zofran was given at 1230 and alcohol to gently smell after that. pt is now having a headache. patient laying on side with warm blankets, no longer crying.
[2023-04-04] MEDS: METOCLOPRAMIDE 10 MG/2 ML INJ IV (13:44)
[2023-04-04] MEDS: HYDROMORPHONE 0.5 MG INJ IV (13:44)
[2023-04-04] MEDS: HYOSCYAMINE 0.125 MG TABLET PO (14:43)
== END 2023-04-04 14:53 | disposition home or self-care (01) ==
PROVIDERS: Emergency Medicine; Emergency Provider Physician Assistant; PCP Family Medicine
DX: A09 Infectious gastroenteritis and colitis, unspecified (principal); R50.9 Fever, unspecified
CPT/HCPCS: 36415; 74177; 80053; 81003; 81015; 81025; 82140; 83690; 85025; 96361; 96374; 96375; 99284; J1170; J2270; J2405; J2765; Q9967

== ENCOUNTER → 2023-04-11 12:07 | Outpatient (CLI) | payer OTHER, MEDICAID, SELFPAY ==
[2023-04-11 15:36] LABS: Hemoglobin A1C% w Est Avg Glu 5.2 % (4.0-6.0)
[2023-04-11 16:04] LABS: TSH w/ Reflex to FT4 1.16 uIU/mL (0.47-4.68)
== END ==
PROVIDERS: PCP Family Medicine; Referring Provider Family Medicine; Visit Provider Family Medicine
DX: R53.82 Chronic fatigue, unspecified (principal); R73.9 Hyperglycemia, unspecified
CPT/HCPCS: 36415; 83036; 84443

== ENCOUNTER → 2023-05-03 11:52 | Outpatient (CLI) | payer OTHER, MEDICAID, SELFPAY ==
[2023-05-04 18:53] LABS: Interpretation Negative (Negative)
== END ==
PROVIDERS: PCP Family Medicine; Referring Provider Family Medicine; Visit Provider Family Medicine
DX: R10.13 Epigastric pain (principal)
CPT/HCPCS: 83013

== ENCOUNTER → 2023-05-17 12:00 | Outpatient (CLI) | payer OTHER, SELFPAY | PROVIDERS: PCP Family Medicine; Referring Provider Family Medicine; Visit Provider Family Medicine | DX: J45.909 Unspecified asthma, uncomplicated (principal); R53.83 Other fatigue | CPT/HCPCS: 94060; 94726; 94729 ==

== ENCOUNTER → 2023-09-20 15:22 | Outpatient (CLI) | payer OTHER, MEDICAID, SELFPAY ==
--- NOTE | 2023-09-20 15:24 | DI.RAD.S_ITS ---
PROCEDURE: XR CERVICAL SPINE 2V OR 3V INDICATIONS: Cervical pain w/radiculopathy involving L arm TECHNIQUE: 3 view(s) of the cervical spine were acquired. COMPARISON: [facility], , XR CERVICAL SPINE 2V OR 3V, 01/17/2022, 12:24. FINDINGS: Bones: No fractures or dislocations to the T1 level. The lateral masses of C1 appear intact on the odontoid view. No suspicious bony lesions. Loss of lordosis which could be related to muscle spasm, rigidity or simply positional. Soft tissues: No prevertebral soft tissue swelling. IMPRESSION: 1. Loss of lordosis; otherwise normal C-spine. Dictated by: Ten Melendez [facility] Interpreted: Lennie Prather MD on 09/20/2023 at 15:52 Approved by: Lennie Prather M.D. on 09/20/2023 at 19:57
== END ==
PROVIDERS: PCP Family Medicine; Referring Provider Physician Assistant; Visit Provider Physician Assistant
DX: M54.10 Radiculopathy, site unspecified (principal); M54.2 Cervicalgia
CPT/HCPCS: 72040

== ENCOUNTER → 2023-12-13 13:02 | Outpatient (CLI) | payer OTHER, MEDICAID, SELFPAY | PROVIDERS: PCP Family Medicine; Visit Provider Physician Assistant | DX: R30.0 Dysuria (principal) | CPT/HCPCS: 87077; 87086 ==

== ENCOUNTER → 2023-12-26 06:45 | Outpatient (CLI) | payer OTHER, MEDICAID, SELFPAY ==
--- NOTE | 2023-12-26 06:46 | DI.US.S_ITS ---
PROCEDURE: US PELVIC COMPLETE INDICATIONS: dyspareunia TECHNIQUE: Real-time scanning was performed of the pelvic organs, with image documentation. Additional endovaginal scanning was necessary due to incomplete visualization of the adnexal and endometrial structures by transabdominal scanning. COMPARISON: None. FINDINGS: Uterus: Uterus is anteverted and normal in size at 8.4 x 6.2 x 4.8 cm. The myometrium is homogeneous. The endometrium measures 20 mm combined thickness. Ovaries: Right ovary measures 3.1 x 2.4 x 2.4 cm correspond with a 9 cc volume. Complex ovarian cyst measures 2.2 cm. Left ovary not visualized. Right ovarian vascularity unremarkable. Other: No pathologic free abdominal or pelvic fluid. 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 Consider follow-up in 6-8 weeks during the 1st week of a menstrual cycle. Approved by: Parth Shah M.D. on 12/26/2023 at 15:06
== END ==
LOC: US 06:46
PROVIDERS: PCP Family Medicine; Referring Provider Obstetrics & Gynecology; Visit Provider Obstetrics & Gynecology
DX: N92.6 Irregular menstruation, unspecified (principal); N85.8 Other specified noninflammatory disorders of uterus
CPT/HCPCS: 76830; 76856; 93975

== ENCOUNTER → 2023-12-28 11:02 | Outpatient (CLI) | payer OTHER, MEDICAID, SELFPAY ==
[2023-12-28 12:10] LABS: Prolactin 14.2 ng/mL (3.0-18.6)
== END ==
PROVIDERS: PCP Family Medicine; Referring Provider Obstetrics & Gynecology; Visit Provider Obstetrics & Gynecology
DX: N64.3 Galactorrhea not associated with childbirth (principal)
CPT/HCPCS: 36415; 84146

== ENCOUNTER → 2024-02-04 11:13 | Outpatient (CLI) | payer OTHER, MEDICAID, SELFPAY ==
[2024-02-05 13:36] LABS: Candida species Negative (Negative); Gardnerella vaginalis Negative (Negative); Trichomoas vaginalis Negative (Negative)
== END ==
PROVIDERS: Obstetrics & Gynecology; PCP Family Medicine; Visit Provider Physician Assistant Medical
DX: N89.8 Other specified noninflammatory disorders of vagina (principal)
CPT/HCPCS: 87480; 87510; 87660

== ENCOUNTER → 2025-05-05 12:38 | Outpatient (CLI) | payer OTHER, SELFPAY ==
[2025-05-05 14:41] LABS: Urine Chlamydia NOT DETECTED; Urine N gonorrhoeae NOT DETECTED
== END ==
PROVIDERS: PCP Family Medicine; Visit Provider Physician Assistant Medical
DX: R30.0 Dysuria (principal); N89.8 Other specified noninflammatory disorders of vagina
CPT/HCPCS: 87086; 87210; 87491; 87591

== ENCOUNTER → 2025-05-29 12:24 | Outpatient (CLI) | payer OTHER, SELFPAY | PROVIDERS: PCP Family Medicine; Visit Provider Obstetrics & Gynecology | DX: R10.20 Pelvic and perineal pain unspecified side (principal) | CPT/HCPCS: 87491; 87563; 87591 ==

== ENCOUNTER 2025-06-07 16:09 | Emergency (ER) | payer OTHER, SELFPAY ==
[2025-06-07] VITALS (10 sets, daily range): BP systolic 112–141; BP diastolic 60–100; PULSE 73–90; RESP 12–19; TEMP 36.3; O2SAT 96–100; BMI 39.9
--- NOTE | 2025-06-07 19:00 | PC.NURSE ---
Patient reports vaginal rash with clear vaginal discharge with a small amount of blood.
--- NOTE | 2025-06-07 19:01 | ED_ITS ---
HPI - Skin/Abscess/Foreign Bdy General Chief complaint: Urogenital-Female Stated complaint: Stomach cramping, chills, feverish this AM Time Seen by Provider: 06/07/25 19:01 Source: patient Mode of arrival: Ambulatory History of Present Illness HPI narrative: 34-year-old female with ongoing dysuria symptoms, saw gynecology Dr Topete in clinic on Sunday 4 days ago, was diagnosed with bacterial vaginosis, taking oral amoxicillin. Now with some clear vaginal discharge and some itching, concerned that she might have yeast infection. No vaginal bleeding. Still having some cramping anus in her lower pelvic area as she did on her 1st encounter with Gynecology. No fevers or chills. No nausea or vomiting. No diarrhea, loose or black stools. No history of sexually transmitted pelvic infections recalled. Related Data Home Medications ?Medication ?Instructions ?Recorded ?Confirmed lancets 33 gauge (TRUEplus Lancets) #100 ea 09/20/23 1 Previous Rx's ?Medication ?Instructions ?Recorded ibuprofen 600 mg tablet 600 mg PO Q6H PRN pain or cr amping 11/30/20 #30 tabs blood-glucose meter (Blood Glucose #1 ea 09/13/22 Monitoring kit) blood sugar diagnostic (True #50 ea 01/02/23 Metrix Glucose Test Strip) albuterol sulfate 90 mcg/actuation 2 puff inhalation Q 6H PRN 05/03/23 aerosol inhaler shortness of breath or wheez ing #8.5 grams methocarbamol 500 mg tablet 500 mg PO TID #30 tabs diclofenac sodium 1 % topical gel 2 g topical BID-TID PRN pain #100 12/19/23 (Voltaren Arthritis Pain) grams omeprazole 20 mg capsule,delayed 20 mg PO DAILY #90 ca ps 12/28/23 release tramadol 50 mg tablet 50 mg PO BID PRN pain #30 ta bs 03/24/24 gabapentin 100 mg capsule 100 - 200 mg (1 - 2 x 100 mg ) PO 06/11/24 DAILY #60 caps metronidazole 500 mg tablet 500 mg PO BID #28 tabs 01/28 ondansetron HCl 4 mg tablet 4 mg PO Q6H PRN nausea and 05/11/25 vomiting #20 tabs norethindrone (contraceptive) 0.35 0.35 mg PO DAILY #8 4 tabs 05/29/25 mg tablet Allergies Allergy/AdvReac Type Severity Reaction Status Date / Time No Known Drug Allergies Allergy Unknown Verified 05/29/25 09:51 Patient History Medical History (Updated 06/07/25 @ 23:04 by Pedrito Serrato MD) Pelvic pain Endometritis Vaginal discharge Galactorrhea in female Morbid obesity Obesity (BMI 35.0-39.9 without comorbidity) Chronic headaches Rh negative state in antepartum period Exposure to hepatitis B (~2015) Anemia (~2016) Osteomyelitis (~1999) Occipital neuralgia Anxiety Dysthymia (03/21/16) Anxiety (03/21/16) Biliary colic Cholelithiasis Surgical History H/O section complicating Status post incision and drainage (~1999) H/O wisdom tooth extraction (~2012) History of primary section (~11/15/12) Status post cholecystectomy (2016) Status post delivery (12/21/16) Family History Mother Diabetes mellitus Father Myocardial infarction Sister Hypoglycemic disorder Cancer Grandmother Twins, both liveborn Grandfather Unknown whether patient has any health problems Grandmother Unknown whether patient has any health problems Grandfather Unknown whether patient has any health problems Sister Depression Anxiety Social History marital status: number of children: 2 household members: spouse and family lives independently: Yes caregiver/support person: No housing: house pets and animals: Yes (X dog) education level: college occupational status: unemployed current occupational exposures/hazards: No yamel/jehovah's witness: [employer] special yamel needs: No Smoking Status: Never smoker second hand exposure: No alcohol intake: current substance use type: does not use Smoking Status: Never smoker alcohol intake frequency: holidays/special occasions only Exam Narrative Exam Narrative: GENERAL: Well-developed patient, in mild distress. HEAD: Atraumatic. Normocephalic. EYES: Pupils equal round and reactive. Extraocular motions intact. No scleral icterus. No injection or drainage. ENT: Nose without bleeding, purulent drainage. Throat without erythema, tonsillar hypertrophy or exudate. Airway patent. NECK: Trachea midline. Non tender CARDIOVASCULAR: Regular rate and rhythm without murmurs, gallops, or rubs. RESPIRATORY: Clear to auscultation. Breath sounds equal bilaterally. No wheezes, rales, or rhonchi. GASTROINTESTINAL: Abdomen soft, non-tender, nondistended. No guarding or rebound tenderness. Bowel tones unremarkable without rushes or tinkles. EXTREMITIES: No edema or joint tenderness. BACK: Nontender without deformity or crepitance. No flank tenderness. NEURO: AOx3. Motor functions grossly nonfocal. SKIN: No rash or erythema of visible areas Initial Vital Signs Initial Vital Signs: Vital Signs Temperature 97.3 F L 06/07/25 16:24 Pulse Rate 73 06/07/25 16:24 Respiratory Rate 18 06/07/25 16:24 Blood Pressure 141/100 H 06/07/25 16:24 Pulse Oximetry 98 06/07/25 16:24 Oxygen Delivery Method Room Air 06/07/25 16:24 Course Orders Ordered: ED Orders 06/07/25 19:05 Chlamydia Gonorrhea PCR -URINE Stat Urine Culture Stat Urine Microscopic Stat 06/07/25 19:30 Complete Blood Count AUTO DIFF Stat Comprehensive Metabolic Panel Stat Lipase Stat 06/07/25 21:25 US pelvic complete Stat Discontinued Medications Fluconazole (Fluconazole 100 Mg Tablet) 100 mg PO NOW ONE Stop: 06/07/25 23:01 Last Admin: 06/07/25 23:20 Dose: 100 mg Documented By: ELVIS Vital Signs Vital signs: Vital Signs - 8 hr 06/07/25 18:50 06/07/25 19:44 06/07/25 19:45 Pulse Rate 81 79 76 Respiratory Rate 12 18 16 Blood Pressure 133/88 Pulse Oximetry 99 99 100 Oxygen Delivery Method Room Air 06/07/25 19:45 06/07/25 20:00 06/07/25 20:30 Pulse Rate 73 76 Respiratory Rate 15 15 Blood Pressure 112/60 Pulse Oximetry 97 96 Oxygen Delivery Method 06/07/25 21:00 06/07/25 21:30 06/07/25 22:00 Pulse Rate 74 84 82 Respiratory Rate 14 18 19 Blood Pressure Pulse Oximetry 97 100 99 Oxygen Delivery Method 06/07/25 23:16 Pulse Rate 90 Respiratory Rate 18 Blood Pressure 126/81 Pulse Oximetry 99 Oxygen Delivery Method Room Air MDM - Skin/Abscess/Foreign Bdy Lab Data Attestation: I reviewed the patient's lab results. Lab results narrative: White blood cell count 9500, hemoglobin 13.7, platelets adequate. Glucose 98. Renal function, serum CO2, potassium normal. Serum sodium 136 slight low. Liver functions showed slight ALT elevation, otherwise normal. Lipase normal. Urinalysis without obvious inflammatory cells, a few bacteria noted, urine was cultured. Urine test negative. Urine GC chlamydia pending. 06/07/25 19:30 06/07/25 19:30 Labs: Lab Results 06/07/25 06/07/25 Range/Units 19:05 19:30 WBC 9.5 (4.5-11.0) X10^3/uL RBC 4.66 (4.0-5.2) X10^6/uL Hgb 13.7 (12.0-16.0) g/dL Hct 40.7 (36-46) % MCV 87.4 (80-100) fL MCH 29.4 (26-34) PG MCHC 33.6 (30-36) % RDW 14.1 (11.6-14.8) % Plt Count 299 (150-400) X10^3/uL Neut % (Auto) 67.7 (50-75) % Lymph % (Auto) 24.1 L (25-40) % [place] % (Auto) 5.7 (3-14) % Eos % (Auto) 2.1 (2-4) % Baso % (Auto) 0.4 (0-2) % Neut # (Auto) 6400 (3714-0193) /uL Lymph # (Auto) 2300 (3536-6922) /uL [place] # (Auto) 500 (0-900) /uL Eos # (Auto) 200 (0-450) /uL Baso # (Auto) 0 (0-100) /uL Sodium 136 L (137-145) mmol/L Potassium 4.6 (3.4-5.1) mmol/L Chloride 105 (98-107) mmol/L Carbon Dioxide 23 (22-32) mmol/L BUN 14 (7-17) mg/dL Creatinine 0.69 (0.52-1.04) mg/dL Estimated GFR > 60 (>60) mL/min BUN/Creatinine Ratio 20.3 (6-22) Glucose 98 (70-99) mg/dL Calcium 8.9 (8.4-10.2) mg/dL Total Bilirubin 0.9 (0.2-1.3) mg/dL AST 26 (14-36) IU/L ALT 38 H (<35) IU/L Alkaline Phosphatase 33 L (38-126) U/L Total Protein 7.4 (6.3-8.2) g/dL Albumin 4.3 (3.5-5.0) g/dL Globulin 3.1 (1.7-4.1) g/dL Albumin/Globulin Ratio 1.4 (1.0-2.8) Lipase 51 (23-300) U/L Urine RBC 0-1/hpf (0-5/HPF) Urine WBC 1-5/hpf (0-5/HPF) Ur Squamous Epith Cells 1-5 /hpf (0-5/HPF) Urine Bacteria Few (2-10) H (None) Ur Culture Indicated? Specimen cultured Vol Urine Centrifuged 10ml (spun) Ur Chlamydia DNA (PCR) Not detected N gonorrhoeae DNA (PCR) Not detected Point of Care Testing Test Results Negative Urine Dip Bedside Urine Glucose Negative Bedside Urine Bilirubin - Negative Bedside Urine Ketone - Negative Urine Specific [place] 1.015 Bedside Urine Occult Blood - Negative Bedside Urine pH 6.0 Bedside Urine Protein - Negative Bedside Urine Urobilinogen - Negative Bedside Urine Nitrite - Negative Bedside Urine Leukocytes + 70 Esterase Imaging Data Ultrasound pelvis: Radiologist's Impression: [address] [address] Ultrasound Report Signed Patient: Sharon Baca MR#: [id number] : 1990 Acct:[id number] Age/Sex: 34 / F Date of Service: 06/07/25 Loc: ED Accession Number: [id number] Procedure: US pelvic complete Ordering Provider: Pedrito Serrato MD PROCEDURE: US PELVIC COMPLETE INDICATIONS: lower abd pelvis cramps, on Amox for BV, hcg neg TECHNIQUE: Real-time scanning was performed of the pelvic organs, with image documentation. Additional endovaginal scanning was necessary due to incomplete visualization of the adnexal and endometrial structures by transabdominal scanning. COMPARISON: [facility], , US PELVIC COMPLETE, 12/26/2023, 7:09. FINDINGS: Uterus: Anteverted. 9.2 x 4.4 x 5.3 cm. The endometrium measures 13 mm. Ovaries: Bilateral color and spectral flows are identified. Mildly enlarged right ovary at 12 mL, with a collapsed 2.4 x 1.8 cm cyst. Left ovary is nonenlarged at 3 mL Other: No pathologic free abdominal or pelvic fluid. IMPRESSION: Mildly enlarged right ovary with a collapsed 2.4 x 1.8 cm cyst. Bilateral color and spectral flows are identified. Mildly thickened endometrium at 13 mm. Consider 1-2 month follow-up to ensure temporal thinning. Dictated by: Jimmie Carrion M.D. on 06/07/2025 at 22:27 Approved by: Jimmie Carrion M.D. on 06/07/2025 at 22:28 [facility] Narrative Medical decision making narrative: 34-year-old female with lower abdominal cramping, on amoxicillin therapy for Gynecology Clinic diagnosis of bacterial vaginosis, now with clear vaginal discharge and some itching and burning, concerned she might have yeast vaginitis infection or some other problem. Afebrile, sirs screen negative. Transabdominal exam without significant tenderness. We discussed options, she would like urine GC chlamydia testing, ordered. Urinalysis pending. She believes outpatient pelvic ultrasound ordered, we would like to have ultrasound imaging today. Pelvic ultrasound ordered. Lab data: White blood cell count 9500, hemoglobin 13.7, platelets adequate. Glucose 98. Renal function, serum CO2, potassium normal. Serum sodium 136 slight low. Liver functions showed slight ALT elevation, otherwise normal. Lipase normal. Urinalysis without obvious inflammatory cells, a few bacteria noted, urine was cultured. Urine test negative. Urine GC chlamydia pending. 2214, US Pelvis performed with results pending. Await Urology reading. Urine GC/chlamydia test negative. Ultrasound pelvis. IMPRESSION: Mildly enlarged right ovary with a collapsed 2.4 x 1.8 cm cyst. Bilateral color and spectral flows are identified. Mildly thickened endometrium at 13 mm. Consider 1-2 month follow-up to ensure temporal thinning. See radiology report. Patient given copy of report with explanation, collapsing right ovarian cyst might be explanation for low abdominal cramping. No torsion findings. No PID findings. Patient concerned about yeast vaginitis, does not want to have pelvic exam. We would like some treatment oral option. We will administer Diflucan single oral dose. Advised to take Tylenol/Motrin [id number] analgesics as needed for discomfort. Follow up with Gynecology as planned. Return precautions discussed. Discharge Plan Departure Patient Disposition: Home Clinical Impression: Pelvic pain, Cyst of right ovary Activity Restrictions/Additional Instructions: Recent gynecology clinic visit for pelvic cramping, completed oral course of treatment for bacterial vaginosis by history, concern for possible yeast vaginitis, requesting oral pill treatment. We discussed pelvic examination, declined here. Oral Diflucan dose given in case of yeast vaginitis infection post oral amoxicillin antibacterial course. Pelvic ultrasound was done today, showed or involuting labs seeing right-sided ovarian cyst that might be the cause of your pelvic discomfort, no free fluid, with good blood flow to both ovaries per Radiology report tonight. Consider taking Tylenol and or Motrin as needed for pelvic discomfort. Follow up with your robotics systems engineer as planned. Return to this/nearest emergency department for any change worsening symptoms or any concerns prior. Prescriptions: No Action (DME) True Metrix Glucose Test Strip Strip See Rx Instructions .ROUTE .COMPLEX Qty: 50 11RF Dose Instruction: USE 1 STRIP TO CHECK GLUCOSE TWICE DAILY OR NEEDED FOR SHAKINESS. Rx Instructions: USE 1 STRIP TO CHECK GLUCOSE TWICE DAILY OR NEEDED FOR SHAKINESS. omeprazole 20 mg capsule,delayed release(DR/EC) 20 mg PO DAILY Qty: 90 3RF tramadol 50 mg tablet 50 mg PO BID PRN (Reason: pain) Qty: 30 0RF gabapentin 100 mg capsule 100 - 200 mg PO DAILY Qty: 60 8RF (DME) blood-glucose meter [Blood Glucose Monitoring] Kit See Rx Instructions .ROUTE .MEDSUPPLY Qty: 1 0RF Rx Instructions: check blood sugar twice a day or when shakey ondansetron HCl 4 mg tablet 4 mg PO Q6H PRN (Reason: nausea and vomiting) Qty: 20 0RF metronidazole 500 mg tablet 500 mg PO BID Qty: 28 0RF (DME) lancets [TRUEplus Lancets] 33 gauge misc See Rx Instructions .ROUTE 3XD Qty: 100 Rx Instructions: As directed methocarbamol 500 mg tablet 500 mg PO TID Qty: 30 0RF Rx Instructions: Take one tablet up to 3 times a day or at bedtime only as needed for muscle spasm diclofenac sodium [Voltaren Arthritis Pain] 1 % gel 2 g topical BID-TID PRN (Reason: pain) Qty: 100 5RF norethindrone (contraceptive) 0.35 mg tablet 0.35 mg PO DAILY Qty: 84 0RF ibuprofen 600 mg tablet 600 mg PO Q6H PRN (Reason: pain or cramping) Qty: 30 2RF albuterol sulfate 90 mcg/actuation HFA aerosol inhaler 2 puff inhalation Q6H PRN (Reason: shortness of breath or wheezing) Qty: 8.5 0RF Referrals: Awais Hernadez DO [Primary Care Provider, Family Practice] Bita Topete MD [Physician, PEER EDUCATOR] Stand Alone Forms: Patient Portal/API
[2025-06-07 19:40] LABS: Add Manual Diff / Slide Review NO; Hematocrit 40.7 % (36-46); Hemoglobin 13.7 g/dL (12.0-16.0); Lymphocytes Absolute Auto 2300 /uL (1100-4500); Mean Corpuscular HGB Conc 33.6 % (30-36); Mean Corpuscular Hemoglobin 29.4 PG (26-34); Mean Corpuscular Volume 87.4 fL (80-100); Platelet Count 299 X10^3/uL (150-400)
[2025-06-07 19:49] LABS: Alanine Aminotransferase 38 IU/L (<35); Albumin 4.3 g/dL (3.5-5.0); Albumin Globulin Ratio 1.4 (1.0-2.8); Alkaline Phosphatase 33 U/L (38-126); Blood Urea Nitrogen 14 mg/dL (7-17); Calcium 8.9 mg/dL (8.4-10.2); Carbon Dioxide 23 mmol/L (22-32); Chloride 105 mmol/L (98-107); Estimated Glomerular Filt Rate > 60 mL/min (>60); Globulin 3.1 g/dL (1.7-4.1); Glucose 98 mg/dL (70-99); HEMOLYSIS 36 (0-50); Lipase 51 U/L (23-300); Potassium 4.6 mmol/L (3.4-5.1); Sodium 136 mmol/L (137-145); Total Protein 7.4 g/dL (6.3-8.2)
[2025-06-07 19:56] LABS: Culture Indicated Urine Specimen Cultured
--- NOTE | 2025-06-07 21:25 | DI.US.S_ITS ---
PROCEDURE: US PELVIC COMPLETE INDICATIONS: lower abd pelvis cramps, on Amox for BV, hcg neg TECHNIQUE: Real-time scanning was performed of the pelvic organs, with image documentation. Additional endovaginal scanning was necessary due to incomplete visualization of the adnexal and endometrial structures by transabdominal scanning. COMPARISON: [facility], , US PELVIC COMPLETE, 12/26/2023, 7:09. FINDINGS: Uterus: Anteverted. 9.2 x 4.4 x 5.3 cm. The endometrium measures 13 mm. Ovaries: Bilateral color and spectral flows are identified. Mildly enlarged right ovary at 12 mL, with a collapsed 2.4 x 1.8 cm cyst. Left ovary is nonenlarged at 3 mL Other: No pathologic free abdominal or pelvic fluid. IMPRESSION: Mildly enlarged right ovary with a collapsed 2.4 x 1.8 cm cyst. Bilateral color and spectral flows are identified. Mildly thickened endometrium at 13 mm. Consider 1-2 month follow-up to ensure temporal thinning. Dictated by: Jimmie Carrion M.D. on 06/07/2025 at 22:27 Approved by: Jimmie Carrion M.D. on 06/07/2025 at 22:28
[2025-06-07 21:47] LABS: Urine N gonorrhoeae NOT DETECTED
[2025-06-07 22:10] LABS: Urine Chlamydia NOT DETECTED
--- NOTE | 2025-06-07 23:12 | PC.NURSE ---
Patient reports burning with urination.
[2025-06-07] MEDS: FLUCONAZOLE 100 MG TABLET PO (23:20)
== END 2025-06-07 23:24 | disposition home or self-care (01) ==
PROVIDERS: Emergency Provider Emergency Medicine; PCP Family Medicine
DX: R10.20 Pelvic and perineal pain unspecified side (principal); N83.201 Unspecified ovarian cyst, right side
CPT/HCPCS: 36415; 76830; 76856; 80053; 81003; 81015; 81025; 83690; 85025; 87077; 87086; 87491; 87591; 93975; 99284

== ENCOUNTER 2025-06-19 12:00 | Day surgery (SDC) | payer OTHER, SELFPAY ==
[2025-06-18 14:10] VITALS: BMI 40.7
[2025-06-19] VITALS (7 sets, daily range): BP systolic 114–131; BP diastolic 79–99; PULSE 72–90; RESP 16–18; TEMP 36.2–36.8; O2SAT 97–100
--- NOTE | 2025-06-19 | PATH_ITS ---
[facility] Accession Number: [id number] No. of containers..01 Tissue . 01 Material submitted: . endometrium - ENDOMETRIAL CURETTINGS . 01 Diagnosis: ENDOMETRIUM, BIOPSY: Proliferative endometrium. Background unremarkable endocervical tissue. Negative for endometrioid intraepithelial neoplasia and malignancy. [facility] [place] 06/30/2025 1409 Local . 01 Electronically signed: . Kathrine Hills DO, Pathologist NPI- [id number] . 01 Gross description: . Received in formalin with two patient identifiers and endometrial curettage, is a 1.5 x 1.0 x 0.3 cm aggregate of tolentino, friable tissue fragments. Entirely submitted in cassette A1. ([id number]) /ABEBA 06/25/20252115 Local . 01 Pathologist provided ICD-10: R10.20 . 01 CPT . 692273 Specimen Comment: A courtesy copy of this report has been sent to [facility] Pathology Performed at: [address] [facility] [place], [place], [place] [id number] MD Golden Velazquez MD Phone: [phone]
--- NOTE | 2025-06-19 12:24 | SUR.OPER ---
Lithotomy on padded OR bed, head on pillow, arms secured on padded arm boards at <90 degrees abduction. Legs secured in padded yellow fins stirrups.
--- NOTE | 2025-06-19 12:25 | PM.PREOP ---
Pre-operative Note Interval Note History & Physical reviewed/Exam performed by Physician: Yes Changes to H&P: No ASA Class (for procedural sedation): II
[2025-06-19] MEDS: ACETAMINOPHEN IV 1,000 MG/100 ML VIAL 400 MG IV (12:36)
[2025-06-19] MEDS: LACTATED RINGERS 1,000 ML 84 ML IV (12:37)
--- NOTE | 2025-06-19 13:22 | P.OP_ITS ---
Operative Date/Time/Diagnoses Date of procedure: 06/19/25 Time of procedure: 13:22 Pre-op diagnosis: pelvic pain, possible endometrial abnormality Post-op diagnosis: same Procedure & Clinicians Procedure: hysteroscopy, dilation and curettage Same procedure(s) as scheduled: Yes Indications: pelvic pain refractory to standard medical treatment Surgeon: Bita Lamar?: No Anesthesia Type: General Operative Notes Findings: normal external female genitalia normal appearing cervix, scant mucoid discharge noted at external os intrauterine cavity with proliferative endometrium no distinct polyp or fibroid or any structural anomaly bilateral ostia visualized Specimen(s): other (endometrial curettings ) Applied: none Estimated Blood Loss (mL): 5 Blood products transfused: none Procedure in detail: Pt was taken to the operating room, transferred to OR table and anesthesia was induced with placement of LMA.? Pt had her legs placed in Alistair stirrups and an exam under anesthesia was performed. The patient was prepped and draped in a suleiman rile fashion.? A time out was performed. ?The bladder was emptied via straight catheter in sterile fashion.? A sterile speculum was inserted into the vagina.? The cervix was visualized and grasped anteriorly using a single tooth tenaculum.? The uterus sounded to 8cm and the cervical os was serially dilated using Ge dilators up to 17f to allow for passage of the hysteroscope.? The 5mm 0 degree hysteroscope was then inserted into the uterus with findings as noted.? The hysteroscope was removed and the uterus was sharply curetted until a gritty texture was noted throughout.? The tenaculum was removed and hemostasis was noted at insertion sites.? The speculum was removed and hemostasis was again noted to be excellent.? The patient then had her legs taken out of stirrups.? The patient tolerated the procedure well and without difficulty.? The patient was awakened from anesthesia and taken to PACU in stable condition. Complications: none Post-operative Condition: stable Disposition: PACU Plan for aftercare: anticipate dc to home pending postoperative recovery, routine outpatient f/u in office as scheduled
[2025-06-19] MEDS: ONDANSETRON 4 MG/2 ML INJ IV (14:06)
== END 2025-06-19 14:53 | disposition home or self-care (01) ==
PROVIDERS: PCP Family Medicine; Referring Provider Obstetrics & Gynecology; Visit Provider Obstetrics & Gynecology
PROC: 0UDB8ZZ Extraction of Endometrium, Via Natural or Artificial Opening Endoscopic (ICD-10-PCS; CPT 58558; principal; 2025-06-19 12:45)
DX: R10.20 Pelvic and perineal pain unspecified side (principal); E16.2 Hypoglycemia, unspecified; E66.01 Morbid (severe) obesity due to excess calories; Z68.41 Body mass index [BMI] 40.0-44.9, adult
CPT/HCPCS: 58558; 81025; 82962; J0131; J1100; J1171; J1885; J2250; J2405; J2704; J7120